=== PATIENT | male | born 1960 | race Caucasian/White ===

== ENCOUNTER 2021-11-19 01:17 | Emergency (ER) | payer OTHER, BC, SELFPAY ==
[2021-11-19 01:18] VITALS: BP 179/119; PULSE 98; RESP 16; TEMP 36.2; O2SAT 98; BMI 28.0
--- NOTE | 2021-11-19 01:35 | EDS_ITS ---
HPI History of Present Illness Chief Complaint: Laceration Informant: patient Occured/Mechanism Comment: Accidentally incised at work Onset/Context/Timing Onset: Today (JPTA) Timing: Continuous Quality of Pain: - (Sore) Location: Left middle finger Current Severity: Mild Maximum Severity: Moderate Worsened by: Palpation Relieved by: Leaving alone Associated Symptoms Associated Symptoms: Negative for Parasthesia, Weakness or Loss of Funtion Narrative Narrative: Patient was at work at [employer], he was working on his machine, he raised his hand up and accidentally caught the razor blade at the top with his left middle finger, causing an injury. Has been bleeding. Takes no blood thinners or any other medications. [id number]. No recent illness, alcohol, drug intoxication. Tetanus Immunization: 5-10 years (About 9 years) [facility] Medical History no medical history no medical history Home Medications No Known/Unobtainable [No Known Home Medications] 01/03/16 [History Last Taken Unknown] Allergy/AdvReac Type Severity Reaction Status Date / Time No Known Allergies Allergy Verified 01/03/16 17:17 Social History Smoking Status: Never smoker ROS ROS ED Constitutional Constitutional ED: Denies chills or fever(s) Musculoskeletal Musculoskeletal: Reports extremity pain; Denies neck pain Integumentary Reports wounds; Denies Abrasions or rash Neurologic Neurologic: Denies paresthesias or weakness EXAM Physical Exam Const Vital Signs: 11/19/21 01:18 Temperature 97.2 F L Temperature Source Temporal Pulse Rate 98 Respiratory Rate 16 Blood Pressure 179/119 H Blood Pressure Mean 139 Pulse Ox 98 Oxygen Delivery Method Room Air Positive well nourished and well developed General Appearance ED: well developed and NAD Neck full ROM and supple Back/Spine normal ROM and normal to inspection Extremity Extremity Narrative: Left middle finger: Distal aspect of the nailbed there is a partial skin avulsion, the nail above this has also been avulsed/removed. The rest of the nail is intact and normal. This is at the distal aspect of the nail toward the fingertip, the cuticle is unaffected. The wound is oozing nonpulsatile blood, there is no laceration to repair, there is no bone exposed, and he has full range of motion of the digit. No other wounds. Neuro oriented x3, no focal motor deficits and no sensory deficits noted Sensorium / Orientation: alert Psych mental status grossly normal and thought process normal Skin Skin Narrative: Wound to the nailbed of the left middle finger see above Rashes: no rashes MDM MDM MDM Narrative Medical decision making narrative: There is no repair indicated or necessary or able to be done for this. It is basically a skin avulsion, however it is involving the nailbed and the overlying portion of the nail. The overall affected area is small. The bleeding is more of an issue at this time, over the next couple days he will want to be pr eventing infection, and I will gradually granulate in and form new skin for the nailbed prior to the nail growing over it which may or may not be uncomplicated. Follow-up with [facility] advised, we updated his tetanus here, and after soaking in chlorhexidine, I had nursing place a bacitracin dressing along with a small piece of Surgifoam to help encourage accelerated hemostasis. Discharge Plan Triage Chief Complaint: Laceration ED Provider: Saran Carvajal Dx/Rx/DC Orders Clinical Impression: Injury of nail bed of finger of left hand, Immunization, tetanus-diphtheria Instructions: ED Skin Avulsion Prescriptions: No Action No Known Home Medications Stand Alone Forms: Work Status Form Primary Care Provider: NOT,DEFINED Referrals: [facility] [Group of Physicians] - As soon as possible NOT,DEFINED [Primary Care Provider] - Disposition Disposition: Home, Self Care
[2021-11-19] MEDS: Diphth,Pertuss(Acell),Tet Vac 0.5 ML Vial IM (01:47)
== END 2021-11-19 02:05 | disposition home or self-care (01) ==
PROVIDERS: Emergency Provider Emergency Medicine; Visit Provider Emergency Medicine
DX: S61.213A Laceration without foreign body of left middle finger without damage to nail, initial encounter (principal); Z23 Encounter for immunization; W26.0XXA Contact with knife, initial encounter
CPT/HCPCS: 90471; 90715; 99282

== ENCOUNTER → 2021-12-25 | Outpatient (CLI) | payer BC, SELFPAY ==
[2021-12-25 09:16] LABS: Bacteria 0 SEEN /hpf (None Seen); Mucous, Urine 0 SEEN /hpf (<or=2+); Red Blood Cells-Urine 0 SEEN /hpf (0-5); Squamous Epithelial Cells - UA 0 SEEN /hpf (0-5); White Blood Cells 0 SEEN /hpf (0-5)
[2021-12-25 10:35] LABS: Absolute Neutrophil Count 3.9 X10^3/uL (2.0-7.7); Basophil# 0.06 X10^3/uL; Basophil% 0.9 % (0-1); Eosinophil# 0.28 X10^3/uL; Eosinophils% 4.4 % (0-5); Hematocrit 45.5 % (40-54); Hemoglobin 14.6 g/dL (13.0-16.5); Lymphocyte % 25.3 % (19-41); Mean Corp Hgb Conc 32.1 g/dL (32-36); Mean Corpuscular Hgb 29.6 pg (27.0-32.0); Mean Corpuscular Volume 92.3 fL (80-94); Mean Platelet Vol. 9.6 fl (6.2-12.0); Monocyte# 0.45 X10^3/uL; Monocyte% 7.1 % (0-10); NRBC Flagged by Analyzer 0 % (0-5); Neutrophil # 3.91 X10^3/uL (2.7-7.7); Platelet Count 263 K/mm3 (150-450); RBC Distribution Width CV 13.2 % (11.6-14.6); RBC Distribution Width SD 45.3 fl (35.1-43.9); Red Blood Count 4.93 M/mm3 (4.6-6.2); White Blood Count 6.3 K/mm3 (4.4-11.0)
[2021-12-25 10:48] LABS: Color, Urine Yellow (Yellow); Glucose, Dipstick Normal (Normal); Ketone-Dipstick Negative (Negative); Leukocyte Esterase-Dipstick Negative /ul (Negative); Nitrite-Dipstick Negative (Negative); Occult Blood-Urine Negative /ul (Negative); Protein-Dipstick Negative (Negative); Specific Gravity, Urine 1.015 (1.002-1.030); Urine Bilirubin Dipstick Negative (Negative); Urine Clarity Sl. Cloudy (Clear); Urine Urobilinogen Normal (Normal)
[2021-12-25 11:13] LABS: ALB/GLOB Ratio 1.2 RATIO (0.9-2.4); AST(SGOT) 21 U/L (15-37); Alanine Aminotransfer ALT/SGPT 29 U/L (16-61); Albumin, Serum 3.9 g/dL (3.2-5.0); Alkaline Phosphatase 53 U/L (45-117); Anion Gap 7 (5-15); BUN 13 mg/dL (7-18); Calcium,Total 8.9 mg/dL (8.5-10.1); Chloride 107 mmol/L (98-107); Cholesterol 171 mg/dL (200); Creatinine, Serum 0.87 mg/dL (0.70-1.30); EST Glomerular Filtration Rate 95 mL/min (>60); Est Glom Filt Rate - Afr Amer 115 mL/min (>60); Globulin 3.3 g/dL (2.2-4.2); Glucose 100 mg/dL (74-106); High Density Lipoprotein 52 mg/dL; Magnesium 2.3 mg/dL (1.6-2.6); Potassium 3.9 mmol/L (3.5-5.1); Protein, Total 7.2 g/dL (6.4-8.2); Sodium Level 139 mmol/L (136-145); Thyroid Stim Hormone (TSH) 2.97 uIU/mL (0.358-3.74); Triglycerides 92 mg/dL; Very Low Density Lipoprotein 18 mg/dL (5-40)
[2021-12-26 11:50] LABS: Hemoglobin A1c 5.7 % (3.8-5.6)
== END | disposition home or self-care (01) ==
LOC: MFPLAB 09:15
PROVIDERS: PCP Family Medicine; Referring Provider Family Medicine; Visit Provider Family Medicine
DX: I10 Essential (primary) hypertension (principal); R73.09 Other abnormal glucose
CPT/HCPCS: 36415; 80053; 80061; 81001; 83036; 83735; 84443; 85025

== ENCOUNTER 2022-02-11 08:12 | Day surgery (SDC) | payer BC, SELFPAY ==
[2022-02-11] VITALS (10 sets, daily range): BP systolic 97–151; BP diastolic 66–89; PULSE 62–89; RESP 14–18; TEMP 36.1–37.1; O2SAT 92–97; BMI 28.1
[2022-02-11] MEDS: Lactated Ringers 1,000 ML 15 ML IV (08:34)
--- NOTE | 2022-02-11 08:48 | PCM.HP.BLA ---
History and Physical Date of Admission: 02/11/22 Visit Reasons:?Gastroesophageal reflux disease (GERD) Chief Complaint: gerd Is patient in pain?: No Allergies No Known Allergies Allergy (Verified 01/23/22 09:53) Medications acetaminophen 325 mg tablet (Tylenol) 325 mg PO ONCE PRN 01/23/22 [History Confirmed 01/23/22] amlodipine 10 mg tablet 10 mg PO DAILY 01/23/22 [History Confirmed 01/23/22] hydrochlorothiazide 25 mg tablet 25 mg PO DAILY 01/23/22 [History Confirmed 01/23/22] omeprazole 20 mg capsule,delayed release 20 mg PO DAILY 01/23/22 [History Confirmed 01/23/22] PFSH Social History? Smoking Status:? Never smoker HPI HPI HPI: 61-year-old gentleman is referred by Dr Omar Rodriges for surgical consultation regarding gastroesophageal reflux disease.? At that time patient was complaining of longstanding problems with heartburn epigastric and substernal burning and regurgitation and sour brash.? This is apparently been over 20 years.? He had an upper endoscopy in approximately 2005 because of a hot dog getting stuck.? More recently he has been on Pepcid once a day but continues to have dysphagia to solids and occasionally liquids.? Initially the patient was scheduled to have a barium swallow.? I do not see that that was accomplished.? He was placed on omeprazole 20 mg daily.? The patient states that since starting omeprazole his symptoms are markedly improved.? He still does have some mild breakthrough symptoms of reflux and heartburn. Claims that his sister perhaps 6 7 years ago had what sounds like a hiatal hernia repair and reflux surgery.? She apparently that was still on pantoprazole therapy.? The patient states that it may be possible that she had gastric acid overproduction. The patient works at [employer] and has done so for 20 years.? He does do some walking for exercise with his [place] [employer] dog.? He has not had any abdominal surgery.? No bright red blood per rectum or melena. He has had in the past some intentional weight loss.? Recently his weight appetite and feeling of wellness have been stable. ROS General General: No weight change, appetite, fatigue, colon cancer, breast cancer or weakness HEENT HEENT: No difficulty swallowing, eye injury, eye surgery, swollen glands or hoarseness Endo Endocrine: No thyroid disease, diabetes mellitus, thyroid cancer, Hair loss, heat intolerance or cold intolerance Additional Details: pre diabetic Skin Skin: No rash or changing moles Musc Musculoskeletal: Yes arthritis; No back problems, rheumatoid arthritis, gout or joint pain Cardio Cardiovascular: Yes high blood pressure; No murmur, pacemaker, heart disease, atrial fibrillation, heart attack, heart stent, palpitations, shortness of breat with exertion or chest pain Psych Psychiatric: No depression, anxiety or hearing voices Resp Respiratory: No shortness of breath, No sleep apnea, No cough, No COPD, No asthma, No emphysema and No wheezing Gastro Gastrointestinal: No abdominal pain, No nausea or vomiting, No diarrhea, No constipation, No blood in stool, Yes acid reflux, No hemorrhoids, No ulcers, No gallbladder problem and No black,tarry stools Uvaldo Hematologic: No blood thinners, No blood disorders, No bleeding, No anemia and No blood clots Neuro Neurologic: No system reviewed and no additional complaints, except as documented, No as per HPI, No abnormal gait, No abnormal hearing, No abnormal movements, No abnormal speech, No behavioral changes, No burning sensations, No confusion, No convulsions, No disequilibrium, No dizziness, No localized weakness, No frequent falls, No headache(s), No lack of coordination, No loss of vision, No memory loss, No numbness, No other visual disturbances, No radicular pain, No restless legs, No sensory deficit, No syncope, No tingling, No tremor(s), No weakness and No other Exam Const General: cooperative, healthy appearing, comfortable and no acute distress [facility] Head: normal to inspection Eyes General: appearance normal, both eyes and all related structures Neck Neck: normal visual inspection Chest Chest palpation & inspection: normal inspection of the chest Resp Effort & Inspection: normal respiratory effort Cardio Rate: regular rate Rhythm: regular rhythm GI Inspection: normal to inspection Musc Cervical Spine: normal cervical lordosis Skin General: no rashes or lesions noted Neuro General: patient alert, patient awake and patient oriented x3 Extrem General: no calf tenderness Psych Appearance: grossly normal Assessment and Plan Assessment and Plan (1) Gastroesophageal reflux disease: ?Plan: 61-year-old gentleman who for a long period of time was on famotidine therapy and is just had omeprazole therapy converted.? He has had a remote upper endoscopy 2005 for an esophageal foreign body.? Occasionally solid food sometimes cause him some difficulty but he has not had any overt obstructions.? I am recommending to him a esophagogastroduodenoscopy with possible biopsy or polypectomy as indicated.? Very careful inspection for hiatal hernia reflux changes and possible Watts's will be pursued.? Whether the patient would be a future candidate for surgical reflux surgery could be entertained in the future but at this point he is just initiated omeprazole/PPI therapy. He has had an opportunity to ask and have questions answered.? I very much appreciate the kind opportunity of assisting with his surgical care. Copy: Dr Omar Juarez M.D., F.A.C.S. I have examined the patient and the H&P has been reviewed. There are no clinical changes since date of exam. Zion Juarez M.D., F.A.C.S.
--- NOTE | 2022-02-11 09:15 | EGD_PTH ---
PATIENT: DANTE HIRSCH LOC: EN U#:[id number] AGE/SX: 61/M ROOM: RE02/11/[address]: Dr. Zion Juarez MD : 1960 BED: DIS: 02/11/2022 SPEC #: [id number] RECD: 02/11/22 10:45 STATUS: FELICITA PRITCHARD #: [id number] YAW: 02/11/22 09:[address]: Zion Juarez DEPT: SURGICAL PATHOLOGY RECD BY: Jesus Posada ENTERED: 02/11/22 11:34 SP TYPE: EGD BIOPSY [facility] DR: Dr. Omar Rodriges MD Tissues: A - Gastric mucous membrane B - Gastric mucous membrane Procedures: Surgery Specimen Level IV HEADER OPERATION: EGD ([facility]), biopsy, dilatation, hemostasis clip PRE-OP DIAGNOSIS: GERD TISSUE SUBMITTED: A ? Antrum biopsy for histo and H. pylori, B ? EG junction biopsy MICROSCOPIC DIAGNOSIS A. Gastric antrum, biopsy: Chronic gastritis. See comment. B. Gastroesophageal junction, biopsy: Fragments of squamous mucosa with no pathologic change. AM:shannan 02/12/2022 COMMENT A. The results of immunohistochemistry for Helicobacter pylori will be reported separately ([id number]). MICROSCOPIC DESCRIPTION Slides are reviewed. GROSS DESCRIPTION A - Received in fixative is one container labeled with the patient's name and designated antrum biopsy. The specimen consists of one irregular fragment of light elies soft tissue that measures 0.3 x 0.3 x .1 cm. The specimen is totally submitted in one cassette. B - Received in fixative is one container labeled with the patient's name and designated EG junction biopsy. The specimen consists of one irregular fragment of light elise soft tissue that measures 0.4 x 0.3 x 0.1 cm. The specimen is totally submitted in one cassette. / SJ:shannan 02/11/2022 TC:3 CPT: 54630 x2
--- NOTE | 2022-02-11 09:15 | IMM_PTH ---
PATIENT: DANTE HIRSCH LOC: EN U#:[id number] AGE/SX: 61/M ROOM: RE02/11/[address]: Dr. Zion Juarez MD : 1960 BED: DIS: 02/11/2022 SPEC #: [id number] RECD: 02/11/22 13:20 STATUS: FELICITA REKacey #: [id number] YAW: 02/11/22 09:[address]: Zion Juarez DEPT: IMMUNOHISTOCHEMISTRY RECD BY: Andie Enamorado ENTERED: 02/11/22 13:20 SP TYPE: IMMUNO OTHR DR: Dr. Omar Rodriges MD Tissues: A - Stomach, NOS Procedures: H Pylori (initial) PHYSICIAN & INSTITUTION [place] [id number] SPECIMEN INFORMATION: Tissue Source: A ? Antrum biopsy Clinical Info: GERD Specimen Number: [id number] CPT code: 51842 METHODOLOGY: Deparaffinized sections of prefer/formalin-fixed tissue or PAP/DQ stained slides are incubated with monoclonal/polyclonal antibodies/oligonucleotide probes. Localization is made via biotin free immunoperoxidase method. Appropriate controls are performed and reacted as expected. Results on target cell population are indicated in the following table: RESULTS: ANTIBODY / CLONE RESULT Block A H Pylori (polyclonal) negative These tests were developed and their performance characteristics determined by [facility]. They may not have been cleared or approved by the U.S. Food and Drug Administration. The FDA has determined that such clearance or approval is not necessary. The above immunohistochemical/dualISH markers are ordered and reviewed by the Pathologist. INTERPRETATION: A. Antrum, biopsy: Negative for Helicobacter pylori organisms. AM:shannan 02/12/2022
--- NOTE | 2022-02-11 09:59 | OP.EGD_ITS ---
Patient Name: Nima Viera Procedure Date: 02/11/2022 9:23 AM Date of : 1960 Age: 61 Procedure: Upper GI endoscopy Indications: Suspected esophageal reflux Providers: Zion Juarez MD Medicines: See the Anesthesia note for documentation of the administered medications Complications: No immediate complications. Procedure: Pre-Anesthesia Assessment: - Prior to the procedure, a History and Physical was performed, and patient medications and allergies were reviewed. The patient's tolerance of previous anesthesia was also reviewed. The risks and benefits of the procedure and the sedation options and risks were discussed with the patient. All questions were answered, and informed consent was obtained. Prior Anticoagulants: The patient has taken no previous anticoagulant or antiplatelet agents. ASA Grade Assessment: II - A patient with mild systemic disease. After reviewing the risks and benefits, the patient was deemed in satisfactory condition to undergo the procedure. After obtaining informed consent, the endoscope was passed under direct vision. Throughout the procedure, the patient's blood pressure, pulse, and oxygen saturations were monitored continuously. The gastroscope was introduced through the mouth, and advanced to the second part of duodenum. The upper GI endoscopy was somewhat difficult due to stricture. Successful completion of the procedure was aided by performing the maneuvers documented (below) in this report. The patient tolerated the procedure well. Scope In: 9:33:35 AM Scope Out: 9:48:13 AM Total Procedure Duration Time 0 hours 14 minutes 38 seconds Findings: One benign-appearing, intrinsic stenosis was found 40 cm from the incisors. This stenosis was moderately severe and measured 2 mm (inner diameter). The stenosis was traversed after dilation. A TTS dilator was passed through the scope. Dilation with an 18-19-20 mm balloon dilator was performed to 20 mm. The dilation site was examined following endoscope reinsertion and showed moderate improvement in luminal narrowing. Biopsies were taken with a cold forceps for histology. For hemostasis, one hemostatic clip was successfully placed at the gastroesophageal junction. There was no bleeding at the end of the procedure. Diffuse mildly erythematous mucosa without bleeding was found in the gastric antrum. Biopsies were taken with a cold forceps for histology. The examined duodenum was normal. Impression: - Benign-appearing esophageal stenosis. Dilated. Biopsied. - Erythematous mucosa in the antrum. Biopsied. - Normal examined duodenum. - One hemostatic clip was successfully placed at the gastroesophageal junction.This reapproximated mucosa Recommendation: - Discharge patient to home. - Clear liquid diet today. - Continue present medications. - Return to my office in 3 days. Will hold at clears and prescribe on dose of Rocephin IV Procedure Code(s): --- Professional --- 29527, Esophagogastroduodenoscopy, flexible, transoral; with transendoscopic balloon dilation of esophagus (less than 30 mm diameter) 07896, 59, Esophagogastroduodenoscopy, flexible, transoral; with biopsy, single or multiple Diagnosis Code(s): --- Professional --- K22.2, Esophageal obstruction K31.89, Other diseases of stomach and duodenum CPT copyright 2017 [employer]. All rights reserved. The codes documented in this report are preliminary and upon creative technologist review may be revised to meet current compliance requirements. Zion Juarez MD 02/11/2022 9:59:11 AM This report has been signed electronically. Number of Addenda: 0 Note Initiated On: 02/11/2022 9:23 AM
--- NOTE | 2022-02-11 10:00 | OP.CCLET_ITS ---
02/11/2022 Omar Rodriges [address] [place] [address] Re : Upper GI endoscopy procedure for Nima Viera Dear Dr. Rodriges This procedure was performed on Friday, February 11, 2022. My impressions and recommendations are as follows: Impressions : - Benign-appearing esophageal stenosis. Dilated. Biopsied. - Erythematous mucosa in the antrum. Biopsied. - Normal examined duodenum. - One hemostatic clip was successfully placed at the gastroesophageal junction.This reapproximated mucosa Recommendations : - Discharge patient to home. - Clear liquid diet today. - Continue present medications. - Return to my office in 3 days. Will hold at clears and prescribe on dose of Rocephin IV My findings are described in the full procedure note, which is enclosed. If I can be of further assistance, please feel free to contact me at Doctor phone number(s): Work: . Sincerely, Zion Juarez MD 02/11/2022 9:59:11 AM This report has been signed electronically.
--- NOTE | 2022-02-11 10:04 | SUR.PHASEI ---
Dr. Juarez at bedside however pt is still waking up from sedation. Instructed to keep npo until he speaks to pt.
[2022-02-11] MEDS: 0.9% Normal Saline 250 ML IV.SOLN. IV (10:16)
[2022-02-11] MEDS: Ceftriaxone 1 GM/50 ML BAG IV (10:16)
== END 2022-02-11 11:20 | disposition home or self-care (01) ==
LOC: EN 08:15 → AC 08:15
PROVIDERS: PCP Family Medicine; Referring Provider Family Medicine; Visit Provider Surgery
PROC: 0DJ08ZZ Inspection of Upper Intestinal Tract, Via Natural or Artificial Opening Endoscopic (ICD-10-PCS; CPT 43235; principal; 2022-02-11 09:10)
DX: K29.50 Unspecified chronic gastritis without bleeding (principal); K22.2 Esophageal obstruction; K31.89 Other diseases of stomach and duodenum; K21.9 Gastro-esophageal reflux disease without esophagitis; I10 Essential (primary) hypertension; Z79.899 Other long term (current) drug therapy
CPT/HCPCS: 43239; 43249; 88305; 88342; J7050; J7120; J2405

== ENCOUNTER 2022-04-11 08:55 | Day surgery (SDC) | payer BC, SELFPAY ==
[2022-04-11 09:15] VITALS: BP 127/82; PULSE 80; RESP 16; TEMP 36.6; O2SAT 99
== END 2022-04-11 09:43 | disposition home or self-care (01) ==
PROVIDERS: PCP Family Medicine; Referring Provider Surgery; Visit Provider Surgery
PROC: F00ZJWZ Instrumental Swallowing and Oral Function Assessment using Swallowing Equipment (ICD-10-PCS; CPT 43235; principal; 2022-04-11 08:55)
DX: R13.10 Dysphagia, unspecified (principal)
CPT/HCPCS: 91010

== ENCOUNTER → 2022-04-25 | Outpatient (CLI) | payer BC, SELFPAY ==
[2022-04-25 12:20] LABS: Absolute Lymphocyte Count 1.83 X10^3/uL (0.83-4.51); Absolute Neutrophil Count 3.2 X10^3/uL (2.0-7.7); Basophil# 0.05 X10^3/uL; Basophil% 0.9 % (0-1); Eosinophil# 0.26 X10^3/uL; Eosinophils% 4.5 % (0-5); Hematocrit 42.5 % (40-54); Hemoglobin 13.6 g/dL (13.0-16.5); Lymphocyte # 1.83 X10^3/ul (0.83-4.51); Lymphocyte % 31.4 % (19-41); Mean Corpuscular Hgb 29.2 pg (27.0-32.0); Mean Corpuscular Volume 91.2 fL (80-94); Mean Platelet Vol. 9.5 fl (6.2-12.0); Monocyte# 0.52 X10^3/uL; Monocyte% 8.9 % (0-10); NRBC Flagged by Analyzer 0 % (0-5); Neutrophil # 3.15 X10^3/uL (2.7-7.7); Platelet Count 275 K/mm3 (150-450); RBC Distribution Width CV 13.3 % (11.6-14.6); RBC Distribution Width SD 44.7 fl (35.1-43.9); Red Blood Count 4.66 M/mm3 (4.6-6.2); White Blood Count 5.8 K/mm3 (4.4-11.0)
[2022-04-25 12:47] LABS: ALB/GLOB Ratio 1.1 RATIO (0.9-2.4); AST(SGOT) 26 U/L (15-37); Alanine Aminotransfer ALT/SGPT 25 U/L (16-61); Albumin, Serum 3.9 g/dL (3.2-5.0); Alkaline Phosphatase 54 U/L (45-117); Anion Gap 8 (5-15); BUN 17 mg/dL (7-18); Calcium,Total 9.3 mg/dL (8.5-10.1); Chloride 104 mmol/L (98-107); EST Glomerular Filtration Rate 80 mL/min (>60); Est Glom Filt Rate - Afr Amer 97 mL/min (>60); Globulin 3.4 g/dL (2.2-4.2); Glucose 112 mg/dL (74-106); Protein, Total 7.3 g/dL (6.4-8.2); Sodium Level 138 mmol/L (136-145)
[2022-04-25 13:44] LABS: Hemoglobin A1c 5.6 % (3.8-5.6)
== END | disposition home or self-care (01) ==
LOC: MFPLAB 10:49
PROVIDERS: PCP Family Medicine; Referring Provider Family Medicine; Visit Provider Family Medicine
DX: I10 Essential (primary) hypertension (principal); R73.02 Impaired glucose tolerance (oral)
CPT/HCPCS: 36415; 80053; 83036; 85025

== ENCOUNTER → 2022-07-29 | Outpatient (CLI) | payer BC, SELFPAY ==
[2022-07-29 15:42] LABS: Absolute Lymphocyte Count 1.71 X10^3/uL (0.83-4.51); Absolute Neutrophil Count 3.9 X10^3/uL (2.0-7.7); Basophil# 0.06 X10^3/uL; Basophil% 0.9 % (0-1); Eosinophil# 0.27 X10^3/uL; Eosinophils% 4.2 % (0-5); Hematocrit 46.4 % (40-54); Hemoglobin 14.6 g/dL (13.0-16.5); Lymphocyte # 1.71 X10^3/ul (0.83-4.51); Lymphocyte % 26.5 % (19-41); Mean Corp Hgb Conc 31.5 g/dL (32-36); Mean Corpuscular Hgb 28.9 pg (27.0-32.0); Mean Corpuscular Volume 91.9 fL (80-94); Mean Platelet Vol. 9.8 fl (6.2-12.0); Monocyte# 0.49 X10^3/uL; Monocyte% 7.6 % (0-10); NRBC Flagged by Analyzer 0 % (0-5); Neutrophil % 60.5 % (47-70); Platelet Count 286 K/mm3 (150-450); RBC Distribution Width CV 13.3 % (11.6-14.6); RBC Distribution Width SD 45.1 fl (35.1-43.9); Red Blood Count 5.05 M/mm3 (4.6-6.2); White Blood Count 6.5 K/mm3 (4.4-11.0)
[2022-07-29 16:08] LABS: ALB/GLOB Ratio 1.1 RATIO (0.9-2.4); AST(SGOT) 23 U/L (15-37); Alanine Aminotransfer ALT/SGPT 30 U/L (16-61); Albumin, Serum 3.9 g/dL (3.2-5.0); Alkaline Phosphatase 57 U/L (45-117); Anion Gap 6 (5-15); BUN 15 mg/dL (7-18); BUN/Creat Ratio 15.6 RATIO (10-20); Calcium,Total 9.1 mg/dL (8.5-10.1); Chloride 107 mmol/L (98-107); Creatinine, Serum 0.96 mg/dL (0.70-1.30); EST Glomerular Filtration Rate 84 mL/min (>60); Est Glom Filt Rate - Afr Amer 101 mL/min (>60); Globulin 3.4 g/dL (2.2-4.2); Glucose 122 mg/dL (74-106); PSA,Total - Annual Screen 3.76 ng/mL (0.00-4.00); Protein, Total 7.3 g/dL (6.4-8.2); Sodium Level 138 mmol/L (136-145)
[2022-07-29 16:16] LABS: Hemoglobin A1c 5.9 % (3.8-5.6)
== END | disposition home or self-care (01) ==
LOC: MFPLAB 11:49
PROVIDERS: PCP Family Medicine; Visit Provider Family Medicine
DX: I10 Essential (primary) hypertension (principal); R73.02 Impaired glucose tolerance (oral); Z12.5 Encounter for screening for malignant neoplasm of prostate
CPT/HCPCS: 36415; 80053; 83036; 84153; 85025; G0103

== ENCOUNTER 2022-08-26 06:02 | Day surgery (SDC) | payer BC, SELFPAY ==
--- NOTE | 2022-08-26 06:17 | PCM.HP.STD ---
[facility] General General Date of Service: 08/26/22 Chief Complaint: Screening for intestinal cancer [facility] Narrative DANTE HIRSCH, is a 61 M who presents for screening colonoscopy today. He presents via open access. He has not had a previous one. He has an uncle who had colon cancer. The patient denies any abdominal pain or bright red blood per rectum or melena. He has had previous upper endoscopy demonstrating reflux esophagitis but currently upon medication he is doing better. He is elected not to pursue further surgical investigation and/or treatment of his reflux disease at this time. [facility] Medical History (Updated 08/25/22 @ 10:53 by Niru Mcneil) Alcohol use Arthritis Back pain Easy bruising Gastric reflux History of edema History of hiatal hernia History of pain when walking Hypertension Leg cramps Loss of hearing Non-smoker Wears glasses Home Medications acetaminophen 325 mg tablet (Tylenol) 325 mg PO ONCE PRN Pain 01/23/22 [History Last Taken Unknown] amlodipine 10 mg tablet 10 mg PO DAILY 01/23/22 [History Last Taken Unknown] hydrochlorothiazide 25 mg tablet 25 mg PO DAILY 01/23/22 [History Last Taken Unknown] multivitamin 1 cap PO DAILY 02/06/22 [History Last Taken Unknown] omeprazole 20 mg capsule,delayed release 20 mg PO DAILY 08/25/22 [History Last Taken Unknown] Allergy/AdvReac Type Severity Reaction Status Date / Time No Known Allergies Allergy Verified 08/26/22 06:25 Family History (Updated 07/31/22 @ 11:49 by Paula Barth) Daughter Ulcerative colitis Uncle Colon cancer Surgical History (Updated 08/25/22 @ 10:44 by Niru Mcneil) History of carpal tunnel surgery of right wrist History of esophagogastroduodenoscopy (EGD) History of wisdom tooth extraction Hx of toe surgery Social History (Updated 07/31/22 @ 11:50 by Paula Barth) Smoking Status: Never smoker additional social history: ROS Constitutional Constitutional: Reports systems reviewed and no addt'l complaints, except as documented Cardiovascular Cardiovascular: Denies chest pain Respiratory/Chest Respiratory/Chest: Denies shortness of breath at rest Gastrointestinal Gastrointestinal: Denies abdominal pain, change in bowel habits, hematochezia or melena Physical Exam Const alert, oriented x3 and no apparent distress General Appearance: cooperative and comfortable Eyes General Eye: normal appearance of both eyes Neck General: normal visual inspection Chest inspection of chest normal Resp Effort and Inspection: able to speak in complete sentences and symmetric chest movement Auscultation: clear to auscultation bilaterally Cardio regular rate and regular rhythm GI soft to palpation, non-tender and non-distended Extremity no calf tenderness Neuro oriented x3 Psych thought process normal Assessment & Plan Assessment/Plan (1) Encounter for screening for malignant neoplasm of colon: PLAN: I recommended the patient a screening colonoscopy with possible biopsy or polypectomy as indicated. He is aware of the technique, benefit, risk, alternatives. He has had an opportunity ask and have questions answered. We will proceed as noted. He presents via open access today. Zion Juarez M.D., F.A.C.S.
[2022-08-26 06:39] VITALS: BP 132/86; PULSE 74; RESP 17; TEMP 36.6; O2SAT 97; BMI 26.9
[2022-08-26] MEDS: Lactated Ringers 1,000 ML 15 ML IV (06:39)
--- NOTE | 2022-08-26 07:00 | COLBX_PTH ---
PATIENT: DANTE HIRSCH LOC: EN U#:[id number] AGE/SX: 61/M ROOM: RE08/26/[address]: Dr. Zion Juarez MD : 1960 BED: DIS: 08/26/2022 SPEC #: [id number] RECD: 08/26/22 14:27 STATUS: FELICITA MACHO #: [id number] YAW: 08/26/22 07:[address]: Zion Juarez DEPT: SURGICAL PATHOLOGY RECD BY: Kristine Adamson ENTERED: 08/27/22 10:24 SP TYPE: COLON BX OTHR DR: Dr. Omar Rodriges MD Tissues: Descending colon Procedures: Surgery Specimen Level IV HEADER OPERATION: Colonoscopy PRE-OP DIAGNOSIS: Encounter for screening for malignant neoplasm of colon TISSUE SUBMITTED: Descending colon MICROSCOPIC DIAGNOSIS Descending colon, biopsy: Tubular adenoma. SJ: 08/28/2022 MICROSCOPIC DESCRIPTION Slides are reviewed. GROSS DESCRIPTION Received is one container labeled with the patient name and designated descending colon. The specimen consists of multiple irregular fragments of light elise soft tissue that in aggregate measure 1 x 0.3 x 0.1 cm. The specimen is totally submitted in one cassette. / SJ:arielle 08/27/22 TC:1 CPT:91597
--- NOTE | 2022-08-26 07:41 | OP.COLON_ITS ---
Patient Name: Nima Viera Procedure Date: 08/26/2022 7:16 AM Date of : 1960 Age: 61 Procedure: Colonoscopy Indications: Screening for colorectal malignant neoplasm Providers: Zion Juarez MD Referring MD: Zion Juarez MD Medicines: See the Anesthesia note for documentation of the administered medications Patient Profile: Last Colonoscopy: none. The patient's first colonoscopy is today. Complications: No immediate complications. Procedure: Pre-Anesthesia Assessment: - Prior to the procedure, a History and Physical was performed, and patient medications and allergies were reviewed. The patient's tolerance of previous anesthesia was also reviewed. The risks and benefits of the procedure and the sedation options and risks were discussed with the patient. All questions were answered, and informed consent was obtained. Prior Anticoagulants: The patient has taken no previous anticoagulant or antiplatelet agents. ASA Grade Assessment: II - A patient with mild systemic disease. After reviewing the risks and benefits, the patient was deemed in satisfactory condition to undergo the procedure. After I obtained informed consent, the scope was passed under direct vision. Throughout the procedure, the patient's blood pressure, pulse, and oxygen saturations were monitored continuously. The pediatric colonoscope was introduced through the anus and advanced to the cecum, identified by appendiceal orifice and ileocecal valve. The colonoscopy was performed without difficulty. The patient tolerated the procedure well. The quality of the bowel preparation was good. The ileocecal valve and the appendiceal orifice were photographed. Scope In: 7:23:50 AM Scope Withdrawal Time 0 hours 8 minutes 29 seconds Scope Out: 7:37:28 AM Total Procedure Duration Time 0 hours 13 minutes 38 seconds Findings: The digital rectal exam findings include non-thrombosed external hemorrhoids, non-thrombosed internal hemorrhoids and internal hemorrhoids that prolapse with straining, but spontaneously regress to the resting position (Grade II). Pertinent negatives include normal prostate (size, shape, and consistency). A 4 mm polyp was found in the mid descending colon. The polyp was sessile. The polyp was removed with a cold biopsy forceps. Resection and retrieval were complete. Impression: - Non-thrombosed external hemorrhoids, non-thrombosed internal hemorrhoids and internal hemorrhoids that prolapse with straining, but spontaneously regress to the resting position (Grade II) found on digital rectal exam. - One 4 mm polyp in the mid descending colon, removed with a cold biopsy forceps. Resected and retrieved. Recommendation: - Repeat colonoscopy in 5 years for surveillance based on pathology results. - Telephone my office for pathology results in 1 week. - Continue present medications. Procedure Code(s): --- Professional --- 09672, Colonoscopy, flexible; with biopsy, single or multiple Diagnosis Code(s): --- Professional --- Z12.11, Encounter for screening for malignant neoplasm of colon K64.1, Second degree hemorrhoids K64.4, Residual hemorrhoidal skin tags D12.4, Benign neoplasm of descending colon CPT copyright 2017 [employer]. All rights reserved. The codes documented in this report are preliminary and upon motor inspection mechanic review may be revised to meet current compliance requirements. Zion Juarez MD 08/26/2022 7:41:34 AM This report has been signed electronically. Number of Addenda: 0 Note Initiated On: 08/26/2022 7:16 AM
--- NOTE | 2022-08-26 07:42 | OP.CCLET_ITS ---
08/27/2022 Omar Rodriges [address] [place] [address] Re : Colonoscopy procedure for Nima Viera Dear Dr. Rodriges This procedure was performed on Friday, August 26, 2022. My impressions and recommendations are as follows: Impressions : - Non-thrombosed external hemorrhoids, non-thrombosed internal hemorrhoids and internal hemorrhoids that prolapse with straining, but spontaneously regress to the resting position (Grade II) found on digital rectal exam. - One 4 mm polyp in the mid descending colon, removed with a cold biopsy forceps. Resected and retrieved. Recommendations : - Repeat colonoscopy in 5 years for surveillance based on pathology results. - Telephone my office for pathology results in 1 week. - Continue present medications. My findings are described in the full procedure note, which is enclosed. If I can be of further assistance, please feel free to contact me at Doctor phone number(s): Work: . Sincerely, Zion Juarez MD 08/26/2022 7:41:34 AM This report has been signed electronically.
[2022-08-26 07:48] VITALS: BP 121/79; BP 132/86; PULSE 63; RESP 12; TEMP 35.9; O2SAT 95
[2022-08-26 07:50] VITALS: BP 118/78; BP 132/86; PULSE 61; RESP 12; O2SAT 95
[2022-08-26 07:55] VITALS: BP 122/80; BP 132/86; PULSE 65; RESP 18; O2SAT 97
[2022-08-26 08:00] VITALS: BP 122/88; BP 132/86; PULSE 59; RESP 18; TEMP 36.8; O2SAT 100
[2022-08-26 08:17] VITALS: BP 132/86
== END 2022-08-26 08:58 | disposition home or self-care (01) ==
LOC: EN 06:09 → AC 06:10
PROVIDERS: PCP Family Medicine; Referring Provider Family Medicine; Visit Provider Surgery
PROC: 0DJD8ZZ Inspection of Lower Intestinal Tract, Via Natural or Artificial Opening Endoscopic (ICD-10-PCS; CPT 45378; principal; 2022-08-26 06:55)
DX: Z12.11 Encounter for screening for malignant neoplasm of colon (principal); D12.4 Benign neoplasm of descending colon; K64.1 Second degree hemorrhoids; K64.4 Residual hemorrhoidal skin tags; I10 Essential (primary) hypertension; K21.9 Gastro-esophageal reflux disease without esophagitis; Z79.899 Other long term (current) drug therapy; Z80.0 Family history of malignant neoplasm of digestive organs
CPT/HCPCS: 45380; 88305; J7120

== ENCOUNTER → 2023-01-23 | Outpatient (CLI) | payer BC, SELFPAY ==
[2023-01-23 12:43] LABS: Absolute Lymphocyte Count 2.07 X10^3/uL (0.83-4.51); Absolute Neutrophil Count 3.2 X10^3/uL (2.0-7.7); Basophil# 0.04 X10^3/uL; Basophil% 0.7 % (0-1); Eosinophil# 0.24 X10^3/uL; Hematocrit 44.3 % (40-54); Hemoglobin 14.2 g/dL (13.0-16.5); Lymphocyte # 2.07 X10^3/ul (0.83-4.51); Lymphocyte % 34.7 % (19-41); Mean Corp Hgb Conc 32.1 g/dL (32-36); Mean Corpuscular Hgb 28.7 pg (27.0-32.0); Mean Corpuscular Volume 89.5 fL (80-94); Mean Platelet Vol. 9.7 fl (6.2-12.0); Monocyte# 0.46 X10^3/uL; Monocyte% 7.7 % (0-10); NRBC Flagged by Analyzer 0 % (0-5); Neutrophil # 3.15 X10^3/uL (2.7-7.7); Neutrophil % 52.7 % (47-70); Platelet Count 290 K/mm3 (150-450); RBC Distribution Width CV 13.5 % (11.6-14.6); RBC Distribution Width SD 44.2 fl (35.1-43.9); Red Blood Count 4.95 M/mm3 (4.6-6.2)
[2023-01-23 13:06] LABS: Microalbumin,Random Urine < 5.0 mg/L (NO RANGE EST.)
[2023-01-23 13:18] LABS: ALB/GLOB Ratio 1.2 RATIO (0.9-2.4); AST(SGOT) 21 U/L (15-37); Alanine Aminotransfer ALT/SGPT 25 U/L (16-61); Albumin, Serum 3.9 g/dL (3.2-5.0); Alkaline Phosphatase 53 U/L (45-117); Anion Gap 4 (5-15); BUN 15 mg/dL (7-18); BUN/Creat Ratio 15.7 RATIO (10-20); Calcium,Total 8.8 mg/dL (8.5-10.1); Chloride 104 mmol/L (98-107); Cholesterol 150 mg/dL (200); Creatinine, Serum 0.95 mg/dL (0.70-1.30); EST Glomerular Filtration Rate 85 mL/min (>60); Est Glom Filt Rate - Afr Amer 102 mL/min (>60); Globulin 3.3 g/dL (2.2-4.2); Glucose 98 mg/dL (74-106); High Density Lipoprotein 53 mg/dL; Potassium 3.8 mmol/L (3.5-5.1); Protein, Total 7.2 g/dL (6.4-8.2); Sodium Level 137 mmol/L (136-145); Triglycerides 84 mg/dL; Very Low Density Lipoprotein 17 mg/dL (5-40)
[2023-01-24 08:59] LABS: Hemoglobin A1c 5.6 % (3.8-5.6)
== END | disposition home or self-care (01) ==
LOC: MFPLAB 10:46
PROVIDERS: PCP Family Medicine; Visit Provider Family Medicine
DX: R73.02 Impaired glucose tolerance (oral) (principal); I10 Essential (primary) hypertension
CPT/HCPCS: 36415; 80053; 80061; 82043; 82570; 83036; 85025

== ENCOUNTER → 2023-08-26 | Outpatient (CLI) | payer BC, SELFPAY ==
[2023-08-26 16:19] LABS: ALB/GLOB Ratio 1.1 RATIO (0.9-2.4); AST(SGOT) 19 U/L (15-37); Alanine Aminotransfer ALT/SGPT 28 U/L (16-61); Alkaline Phosphatase 59 U/L (45-117); Anion Gap 7 (5-15); BUN 17 mg/dL (7-18); BUN/Creat Ratio 16.3 RATIO (10-20); Calcium,Total 9.6 mg/dL (8.5-10.1); Chloride 104 mmol/L (98-107); Cholesterol 191 mg/dL (200); Creatinine, Serum 1.04 mg/dL (0.70-1.30); EST Glomerular Filtration Rate 77 mL/min (>60); Est Glom Filt Rate - Afr Amer 93 mL/min (>60); Globulin 3.6 g/dL (2.2-4.2); Glucose 103 mg/dL (74-106); High Density Lipoprotein 53 mg/dL; Magnesium 2.3 mg/dL (1.6-2.6); PSA,Total - Annual Screen 5.31 ng/mL (0.00-4.00); Protein, Total 7.6 g/dL (6.4-8.2); Sodium Level 136 mmol/L (136-145); Thyroid Stim Hormone (TSH) 2.83 uIU/mL (0.358-3.74); Triglycerides 127 mg/dL; Very Low Density Lipoprotein 25 mg/dL (5-40)
[2023-08-26 17:11] LABS: Hemoglobin A1c 5.6 % (3.8-5.6)
== END | disposition home or self-care (01) ==
LOC: MFPLAB 11:50
PROVIDERS: PCP Family Medicine; Visit Provider Family Medicine
DX: Z12.5 Encounter for screening for malignant neoplasm of prostate (principal); I10 Essential (primary) hypertension; R73.02 Impaired glucose tolerance (oral)
CPT/HCPCS: 36415; 80053; 80061; 83036; 83735; 84153; 84443; G0103

== ENCOUNTER → 2023-10-05 | Outpatient (CLI) | payer BC, SELFPAY ==
[2023-10-05 10:08] LABS: PSA,Total- Diagnostic 3.41 ng/mL (0.0-4.0)
[2023-10-06 12:09] LABS: PSA, Free 0.52 ng/mL; PSA, Free % 17.3 % (.)
== END | disposition home or self-care (01) ==
LOC: LAB 08:53
PROVIDERS: PCP Family Medicine; Referring Provider Nurse Practitioner; Visit Provider Nurse Practitioner
DX: R97.20 Elevated prostate specific antigen [PSA] (principal)
CPT/HCPCS: 36415; 84153; 84154

== ENCOUNTER → 2024-02-23 | Outpatient (CLI) | payer BC, SELFPAY ==
[2024-02-23 09:29] LABS: Bacteria 0 SEEN /hpf (None Seen); Mucous, Urine 0 SEEN /hpf (<or=2+); Red Blood Cells-Urine 0 SEEN /hpf (0-5); Squamous Epithelial Cells - UA 0 SEEN /hpf (0-5); White Blood Cells 0 SEEN /hpf (0-5)
[2024-02-23 10:21] LABS: Absolute Lymphocyte Count 1.71 X10^3/uL (0.83-4.51); Absolute Neutrophil Count 3.5 X10^3/uL (2.0-7.7); Basophil# 0.07 X10^3/uL; Basophil% 1.2 % (0-1); Eosinophil# 0.33 X10^3/uL; Eosinophils% 5.4 % (0-5); Lymphocyte # 1.71 X10^3/ul (0.83-4.51); Lymphocyte % 28.2 % (19-41); Mean Corp Hgb Conc 31.9 g/dL (32-36); Mean Corpuscular Volume 87.9 fL (80-94); Mean Platelet Vol. 9.4 fl (6.2-12.0); Monocyte# 0.44 X10^3/uL; Monocyte% 7.3 % (0-10); NRBC Flagged by Analyzer 0 % (0-5); Neutrophil % 57.7 % (47-70); Platelet Count 296 K/mm3 (150-450); RBC Distribution Width CV 13.7 % (11.6-14.6); RBC Distribution Width SD 43.8 fl (35.1-43.9); Red Blood Count 5.35 M/mm3 (4.6-6.2); White Blood Count 6.1 K/mm3 (4.4-11.0)
[2024-02-23 10:44] LABS: Hemoglobin A1c 5.8 % (3.8-5.6)
[2024-02-23 12:03] LABS: Color, Urine Yellow (Yellow); Glucose, Dipstick Normal (Normal); Ketone-Dipstick Negative (Negative); Leukocyte Esterase-Dipstick Negative /ul (Negative); Nitrite-Dipstick Negative (Negative); Occult Blood-Urine Negative /ul (Negative); Protein-Dipstick Negative (Negative); Specific Gravity, Urine 1.005 (1.002-1.030); Urine Bilirubin Dipstick Negative (Negative); Urine Clarity Clear (Clear); Urine Urobilinogen Normal (Normal)
[2024-02-23 12:35] LABS: AST(SGOT) 22 U/L (15-37); Alanine Aminotransfer ALT/SGPT 33 U/L (16-61); Albumin, Serum 3.8 g/dL (3.2-5.0); Alkaline Phosphatase 58 U/L (45-117); Anion Gap 5 (5-15); BUN 17 mg/dL (7-18); Calcium,Total 9.2 mg/dL (8.5-10.1); Chloride 104 mmol/L (98-107); Cholesterol 178 mg/dL (200); Creatinine, Serum 1.06 mg/dL (0.70-1.30); EST Glomerular Filtration Rate 75 mL/min (>60); Est Glom Filt Rate - Afr Amer 90 mL/min (>60); Globulin 3.7 g/dL (2.2-4.2); Glucose 102 mg/dL (74-106); High Density Lipoprotein 51 mg/dL; Magnesium 2.2 mg/dL (1.6-2.6); Potassium 3.8 mmol/L (3.5-5.1); Protein, Total 7.5 g/dL (6.4-8.2); Sodium Level 136 mmol/L (136-145); Triglycerides 117 mg/dL; Very Low Density Lipoprotein 23 mg/dL (5-40)
== END | disposition home or self-care (01) ==
LOC: MFPLAB 09:26
PROVIDERS: PCP Family Medicine; Referring Provider Family Medicine; Visit Provider Family Medicine
DX: R73.02 Impaired glucose tolerance (oral) (principal); I10 Essential (primary) hypertension
CPT/HCPCS: 36415; 80053; 80061; 81001; 83036; 83735; 85025

== ENCOUNTER 2024-06-18 16:26 | Emergency (ER) | payer BC, SELFPAY ==
[2024-06-18] VITALS (9 sets, daily range): BP systolic 136–150; BP diastolic 80–91; PULSE 64–72; RESP 11–19; TEMP 36.9–37.2; O2SAT 96–99; BMI 29.7
--- NOTE | 2024-06-18 16:44 | EKG12_ITS ---
Test Reason : CP Blood Pressure : */* mmHG Vent. Rate : 67 BPM Atrial Rate : 67 BPM P-R Int : 156 ms QRS Dur : 96 ms QT Int : 386 ms P-R-T Axes : 32 -4 26 degrees QTcB Int : 407 ms Normal sinus rhythm Normal ECG Confirmed by Porter Galindo ([id number]), senior editor YULIANA JEFFREY ([id number]) on 06/24/2024 12:58:27 PM Referred By: Confirmed By: Porter Galindo
--- NOTE | 2024-06-18 16:44 | ED.VIS.CHEST ---
HPI History of Present Illness Chief Complaint: Chest Pain Informant: patient Narrative Narrative: 63-year-old male presenting to the emergency room for evaluation of chest pain. Patient notes a history of hypertension. And prediabetes. He notes his cholesterols always been no prior stress test or heart catheterizations. Patient notes that for the past week he has had a pulled muscle like sensation in the left arm intermittently. States that he has been able to go to work due to his job and occasionally he will feel it. Notes that today has had a twinge/ache throughout the day left breast region occasionally inferior to the breast. Nothing seems to make it better or worse. He notes a family history of coronary artery disease (father had open heart surgery age 64) and is concerned him playing wanted to be evaluated. He does see Dr. Kumari for primary care. He denies any neck pain. 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 He denies any shortness of breath DVT or PE risk factors. He denies any leg symptoms. [facility] Medical History Easy bruising History of hiatal hernia History of edema Loss of hearing Wears glasses Alcohol use Arthritis Back pain Gastric reflux Non-smoker Leg cramps History of pain when walking Hypertension Home Medications ?Medication ?Instructions ?Recorded ?Last Taken ?Type acetaminophen 325 mg tablet 325 - 975 mg PO DAILY PRN Pain 01/23/22 06/17/24 History (Tylenol) amlodipine 10 mg tablet 10 mg PO DAILY 01/23/22 06/18/24 History hydrochlorothiazide 25 mg tablet 25 mg PO DAILY 01/23/22 06/18/24 History multivitamin (Daily Multi-Vitamin 1 tab PO DAILY 06/18/24 Unknown History tablet) omeprazole 20 mg capsule,delayed 20 mg PO DAILY 06/18/24 06/18/24 History release Allergy/AdvReac Type Severity Reaction Status Date / Time No Known Allergies Allergy Verified 06/18/24 16:29 Family History Daughter Ulcerative colitis Uncle Colon cancer Surgical History History of wisdom tooth extraction History of esophagogastroduodenoscopy (EGD) Hx of toe surgery History of carpal tunnel surgery of right wrist Social History Smoking Status: Never smoker additional social history: ROS ROS ED Constitutional Constitutional ED: Denies chills, fever(s) or weight loss Eyes Eyes: Denies change in vision or diplopia ENT ENT ED: Denies ear pain, rhinorrhea or sore throat Cardiovascular Cardiovascular: Reports as per HPI and chest pain; Denies orthopnea, palpitations or racing heartbeat Respiratory/Chest Respiratory/Chest: Denies cough, dyspnea or orthopnea Gastrointestinal Gastrointestinal: Denies abdominal pain, diarrhea, nausea or vomiting Genitourinary Genitourinary ED: Denies dysuria, hematuria or urinary frequency Musculoskeletal Musculoskeletal: Reports other Details: See history of present illness ; Denies arthralgias, back pain, myalgias or neck pain Integumentary Denies abscess or rash Neurologic Neurologic: Denies headache(s), paresthesias or weakness Psychiatric Psychiatric: Denies anxiety, depression, suicidal ideation or suicidal thoughts Endocrine Endocrinology: Denies polydipsia, polyphagia or polyuria Allergic/Immunologic Allergic/Immunologic ED: Denies mouth swelling, tongue swelling or urticaria EXAM Physical Exam Const Vital Signs: 06/18/24 16:30 06/18/24 16:32 06/18/24 17:58 Temperature 98.4 F Temperature Source Oral Pulse Rate 69 68 Respiratory Rate 18 11 L Respiratory Effort Normal Blood Pressure 150/84 H Blood Pressure Mean 106 Pulse Ox 99 96 Oxygen Delivery Method Room Air 06/18/24 18:00 06/18/24 18:15 06/18/24 18:30 Temperature Temperature Source Pulse Rate 67 66 72 Respiratory Rate 18 19 H 16 Respiratory Effort Blood Pressure 140/91 H Blood Pressure Mean 104 Pulse Ox 98 97 98 Oxygen Delivery Method 06/18/24 18:40 06/18/24 18:45 06/18/24 19:00 Temperature Temperature Source Pulse Rate 64 69 Respiratory Rate 11 L 16 Respiratory Effort Blood Pressure 136/80 H Blood Pressure Mean 97 Pulse Ox 98 97 Oxygen Delivery Method 06/18/24 19:40 Temperature 98.9 F Temperature Source Pulse Rate 71 Respiratory Rate 13 Respiratory Effort Blood Pressure 144/84 H Blood Pressure Mean 104 Pulse Ox 99 Oxygen Delivery Method Positive well nourished and well developed General Appearance ED: well developed HEENT Reports normocephalic, head/scalp atraumatic and moist mucous membranes Eyes PERRL and EOMs intact bilaterally Neck no lymphadenopathy, supple and no JVD Resp normal respiratory effort and clear to auscultation bilaterally Cardio regular rate, regular rhythm and no murmurs GI normal to inspection, nondistended, normoactive bowel sounds and non-tender Palpation: soft Back/Spine no CVA tenderness and normal ROM Extremity normal to inspection General Extremety ED: Negative for edema General Extremity: Negative for edema Neuro oriented x3 and CN's II-XII intact bilaterally Sensorium / Orientation: alert Motor Exam: strength 5/5 throughout Psych mental status grossly normal Mood & Affect: Negative for depressed or tearful Skin no rashes or lesions noted and no wounds Heart Score History: Slightly/Non-Suspicious ECG: Normal Age: >45 - <65 years Risk Factors: 1 or 2 Risk Factors Score: 2 MDM MDM MDM Narrative Medical decision making narrative: Differential diagnosis includes but not limited to acute coronary syndrome pneumothorax wall pain GERD cervical radiculopathy aortic dissection/aneurysm pulmonary embolism EKG demonstrates a normal sinus rhythm ventricular rate of 67 bpm. Initial troponin 29. Second troponin 26 BMP within normal except for glucose of 112 normal CBC. Patient's had no significant vents on the monitor. I believe the patient can be discharged home and we can have him follow-up with primary care to arrange outpatient stress testing. Patient is comfortable with this plan understands return instructions History & Record Review Discussion w/independent historian: Patient Additional record(s) reviewed:: Prior ED visit and Prior labs Lab Data Attestation: I reviewed the patient's lab results. Labs: Laboratory Results - last 24 hr 06/18/24 06/18/24 16:39 18:41 WBC 7.0 RBC 5.42 Hgb 15.7 Hct 46.8 MCV 86.3 MCH 29.0 MCHC 33.5 RDW Std Deviation 42.0 RDW Coeff of [place] 13.5 Plt Count 279 MPV 9.4 Immature Gran % (Auto) 0.400 Neut % (Auto) 67.5 Lymph % (Auto) 24.1 [place] % (Auto) 6.4 Eos % (Auto) 0.7 Baso % (Auto) 0.9 Absolute Neuts (auto) 4.7 Absolute Lymphs (auto) 1.69 Nucleated RBC % 0 Sodium 137 Potassium 3.8 Chloride 102 Carbon Dioxide 24.3 Anion Gap 11 BUN 14 Creatinine 1.00 Estim Creat Clear Calc 83.39 Est GFR (MDRD) Non-Af 84 BUN/Creatinine Ratio 14.3 Glucose 112 H Calcium 9.8 Troponin T High Sens 29 H Troponin T Hi Sens 2 Hr 26 H Radiography Diagnostic Testing: Clinical Impression(s) from Imaging Studies Chest X-Ray 06/18/24 16:55 IMPRESSION: No Acute Findings. Reading Location: [facility] EKG Initial EKG: Attestation: I personally reviewed and interpreted this EKG as follows: Comments: Normal sinus rhythm ventricular rate of 67 bpm Discharge Plan Triage Chief Complaint: Chest Pain ED Provider: Gordo Crespo Dx/Rx/DC Orders Clinical Impression: Chest pain Instructions: ED Chest Pain, Uncertain Cause Prescriptions: No Action amlodipine 10 mg tablet 10 mg PO DAILY hydrochlorothiazide 25 mg tablet 25 mg PO DAILY acetaminophen [Tylenol] 325 mg tablet 325 - 975 mg PO DAILY PRN (Reason: Pain) multivitamin [Daily Multi-Vitamin] Tablet 1 tab PO DAILY Patient Comments: PT TAKES WHEN HE REMEMBERS omeprazole 20 mg capsule,delayed release(DR/EC) 20 mg PO DAILY Rx Instructions: take once daily 30 minutes before breakfast every morning Primary Care Provider: Omar Rodriges Referrals: Omar Rodriges MD [Primary Care Provider] - As soon as possible (to discuss cardiac stress testing ) Print Language: Irish Disposition Disposition: Home, Self Care Discharge Date/Time: 06/18/24 19:47
[2024-06-18 16:54] LABS: Absolute Lymphocyte Count 1.69 X10^3/uL (0.83-4.51); Absolute Neutrophil Count 4.7 X10^3/uL (2.0-7.7); Basophil# 0.06 X10^3/uL; Basophil% 0.9 % (0-1); Eosinophil# 0.05 X10^3/uL; Eosinophils% 0.7 % (0-5); Hematocrit 46.8 % (40-54); Hemoglobin 15.7 g/dL (13.0-16.5); Lymphocyte # 1.69 X10^3/ul (0.83-4.51); Lymphocyte % 24.1 % (19-41); Mean Corp Hgb Conc 33.5 g/dL (32-36); Mean Corpuscular Volume 86.3 fL (80-94); Mean Platelet Vol. 9.4 fl (6.2-12.0); Monocyte# 0.45 X10^3/uL; Monocyte% 6.4 % (0-10); NRBC Flagged by Analyzer 0 % (0-5); Neutrophil # 4.73 X10^3/uL (2.7-7.7); Neutrophil % 67.5 % (47-70); Platelet Count 279 K/mm3 (150-450); RBC Distribution Width CV 13.5 % (11.6-14.6); Red Blood Count 5.42 M/mm3 (4.6-6.2)
--- NOTE | 2024-06-18 16:55 | RAD_ITS ---
PROCEDURE: CHEST 1 VIEW (PORTABLE) 06/18/2024 REASON FOR EXAM: CHEST PAIN TECHNIQUE: Frontal view of the chest. COMPARISON: None FINDINGS: Hardware: None Heart: The heart size is normal. Lungs: No focal consolidation. No pneumothorax. No pleural effusion. Bones: The bones are unremarkable. Other: RAD/Chest 1 View (Portable) IMPRESSION: No Acute Findings. Reading Location: [facility]
[2024-06-18 17:23] LABS: Anion Gap 11 (5-15); BUN 14 mg/dL (4-19); BUN/Creat Ratio 14.3 RATIO (10-20); Calcium,Total 9.8 mg/dL (7.6-11.0); Carbon Dioxide 24.3 mmol/L (21.0-32.0); Chloride 102 mmol/L (98-108); EST Glomerular Filtration Rate 84 (>60); Estimated Creatinine Clearance 83.39 ml/min (50-250); Glucose 112 mg/dL (70-99); Potassium 3.8 mmol/L (3.3-5.1); Sodium Level 137 mmol/L (133-145); Troponin T High Sensitivity 29 ng/L (<=22)
[2024-06-18 19:06] LABS: Troponin T High Sens 2 HR 26 ng/L (<=22)
== END 2024-06-18 19:47 | disposition home or self-care (01) ==
PROVIDERS: Emergency Provider Emergency Medicine; PCP Family Medicine; Visit Provider Emergency Medicine
DX: R07.9 Chest pain, unspecified (principal); R73.03 Prediabetes; I10 Essential (primary) hypertension; Z79.899 Other long term (current) drug therapy
CPT/HCPCS: 71045; 80048; 84484; 85025; 93005; 99285; A4216

== ENCOUNTER → 2024-07-06 | Outpatient (CLI) | payer BC, SELFPAY ==
--- NOTE | 2024-07-06 16:39 | STRESSREP ---
Stress Test Report Exercise stress test. 63-year-old male with a history of chest pain Stress protocol: Resting EKG demonstrates normal sinus rhythm with a rate of 80 bpm resting blood pressure is 130/78 mmHg. The patient exercised according to the regular [facility] protocol for a total duration of 6 minutes attaining a maximum heart rate of 151 bpm which was 96% of maximum predicted heart rate; the maximum workload was 7 metabolic equivalents. At rest there were no ST or T wave changes noted to suggest ischemia and at peak exercise upsloping ST changes only were noted which did not meet the criteria for ischemia. No clinical angina was noted the test was terminated due to the target heart rate being achieved/fatigue. The peak blood pressure was 188/78 mmHg. Rate-pressure product was 28,300. Conclusion: Stress test with no EKG criteria for ischemia at a moderate workload.
== END | disposition home or self-care (01) ==
LOC: CVS 09:55
PROVIDERS: PCP Family Medicine; Referring Provider Family Medicine; Visit Provider Family Medicine
DX: R73.02 Impaired glucose tolerance (oral) (principal); R07.9 Chest pain, unspecified; I10 Essential (primary) hypertension
CPT/HCPCS: 93017

== ENCOUNTER → 2024-08-31 | Outpatient (CLI) | payer BC, SELFPAY ==
[2024-08-31 12:07] LABS: Hematocrit 45.5 % (40-54); Hemoglobin 14.8 g/dL (13.0-16.5); Immature Granulocytes Count 0.010 X10^3/uL (0.0-0.0); Mean Corp Hgb Conc 32.5 g/dL (32-36); Mean Corpuscular Volume 88.2 fL (80-94); Mean Platelet Vol. 9.4 fl (6.2-12.0); NRBC Flagged by Analyzer 0 % (0-5); Platelet Count 285 K/mm3 (150-450); RBC Distribution Width CV 13.8 % (11.6-14.6); RBC Distribution Width SD 44.9 fl (35.1-43.9); Red Blood Count 5.16 M/mm3 (4.6-6.2); White Blood Count 6.4 K/mm3 (4.4-11.0)
[2024-08-31 12:47] LABS: AST(SGOT) 26 U/L (<=37); Alanine Aminotransfer ALT/SGPT 21 U/L (<=46); Albumin, Serum 4.4 g/dL (3.4-4.8); Alkaline Phosphatase 63 U/L (40-129); Anion Gap 12 (5-15); BUN 22 mg/dL (4-19); BUN/Creat Ratio 19.3 RATIO (10-20); Calcium,Total 9.6 mg/dL (7.6-11.0); Carbon Dioxide 25.0 mmol/L (21.0-32.0); Chloride 101 mmol/L (98-108); Cholesterol 179 mg/dL (<=200); Globulin 2.9 g/dL (2.2-4.2); Glucose 105 mg/dL (70-99); Low Density Lipoprotein Calc. 110 mg/dL; Magnesium 2.3 mg/dL (1.5-2.2); PSA,Total - Annual Screen 3.78 ng/mL (0.02-4.00); Potassium 3.8 mmol/L (3.3-5.1); Triglycerides 85 mg/dL; Very Low Density Lipoprotein 17 mg/dL (5-40); cholesterol:hdl ratio screen 3.42
--- OUTSIDE RECORDS SUMMARY | 2024-08-31 21:03 | XMS RPT_ITS | CCD ---
Author Organization [facility] Care Team Providers Care Gum Sprayer Name Role Phone Dr. Omar Rodriges Primary Care Provider Dr. Omar Rodriges Referring Provider Dr. Zion Juarez Attending Provider Dr. Zion Juarez Other Provider Dr. Omar Rodriges Primary Care Provider Dr. Omar Rodriges Referring Provider Dr. Zion Juarez Attending Provider [phone] Paula Barth Attending Provider Unavailable Dr. Omar Rodriges Primary Care Provider [phone] Dr. Omar Rodriges Referring Provider Dr. Zion Juarez Attending Provider [phone] Zion Juarez Other Provider Dr. Omar Rodriges MD Primary Care Provider [phone] Dr. Omar Rodriges MD Referring Provider Vasquez ALFAROCAlicia Attending Provider Dr. Gordo Crespo DO Attending Provider Dr. Gordo Crespo DO Emergency Provider Dr. Omar Rodriges MD Attending Provider Dr. Omar Rodriges MD Other Provider [phone] Erlin Lynn MD Attending Provider Nata Mejia Attending Unavailable Nata Mejia Referring Unavailable Omar Rodriges Primary Care Unavailable Omar Rodriges Primary Care Unavailable Omar Rodriges Attending Unavailable Omar Rodriges Referring Unavailable Omar Rodriges Attending Unavailable Omar Rodriges Referring Unavailable Omar Rodriges Primary Care Unavailable Gordo Crespo Attending Unavailable Omar Rodriges Primary Care Unavailable Omar Rodriges Consulting Unavailable Erlin Lynn Attending Unavailable Omar Rodriges Referring Unavailable Omar Rodriges Primary Care Unavailable Alicia Ovalle Attending Unavailable Omar Rodriges Referring Unavailable Omar Rodriges Primary Care Unavailable Omar Rodriges Primary Care Unavailable Omar Rodriges Attending Unavailable Medications Current Medications Medication Drug Class(es) Dates Sig (Normalized) Sig (Original) acetaminophen 325 mg oral tablet (6 sources) Start: 01-24-20 take 325-975 mg by mouth once daily as needed for pain Acetaminophen (Tylenol) 325 mg tablet Active 325 - 975 mg PO DAILY as needed for Pain January 23, 2022 1:00am amLODIPine 10 mg oral tablet (6 sources) Dihydropyridine Calcium Channel Kyle Start: 01-24-20 take 1 tablet by mouth once daily Amlodipine 10 mg tablet Active 10 mg PO DAILY January 23, 2022 1:00am hydroCHLOROthiazide 25 mg oral tablet (6 sources) Thiazide Diuretic Start: 01-24-20 take 1 tablet by mouth once daily Hydrochlorothiazide 25 mg tablet Active 25 mg PO DAILY January 23, 2022 1:00am Multivitamin (Daily Multi-Vitamin) tablet (1 source) Start: 06-19-19 Multivitamin (Daily Multi-Vitamin) tablet Active 1 {tbl} PO DAILY June 18, 2024 12:00am Multivitamin preparation (5 sources) Start: 02-07-20 take 1 capsule by mouth once daily Multivitamin Active 1 CAP PO DAILY February 06, 2022 1:00am Start: 02-06-2022 take 1 capsule by [facility] once daily Multivitamin Active 1 CAP PO DAILY February 06, 2022 12:00am omeprazole 20 mg delayed release oral capsule (15 sources) Proton Pump Inhibitor Start: 08-25-2022 End: 06-18-2024 take 1 capsule by mouth once daily 30 minutes before breakfast Omeprazole 20 mg capsule,delayed release(DR/EC) Active 20 mg PO DAILY June 18, 2024 12:00am take once daily 30 minutes before breakfast every morning Start: 02-14-2022 End: 08-25-2022 take 1 capsule by mouth twice daily Omeprazole 20 mg capsule,delayed release(DR/EC) Discontinued 20 mg PO TWICE A DAY 180 90 February 14, 2022 1:00am August 25, 2022 10:41am Start: 01-23-2022 End: 07-31-2022 take 1 capsule by mouth once daily Omeprazole 20 mg capsule,delayed release(DR/EC) Discontinued 20 mg PO DAILY January 23, 2022 1:00am July 31, 2022 11:51am Completed/Discontinued Medications Medication Drug Class(es) Dates Sig (Normalized) Sig (Original) Multivitamin Capsule (1 source) Start: 02-06-2022 End: 06-18-2024 Multivitamin Capsule Discontinued 1 NMA PO DAILY February 06, 2022 1:00am June 18, 2024 5:18pm Problems Active Problems Problem Classification Problem Date Documented Date Episodic/Chronic Diabetes mellitus without complication (1 source) Impaired glucose tolerance (oral); Translations: [Impaired glucose tolerance (oral)] Onset: 07-25-2024 Episodic Esophageal disorders (12 sources) Gastro-esophageal reflux disease without esophagitis; Translations: [Esophageal reflux] Chronic Essential hypertension (7 sources) Hypertensive disorder; Translations: [Essential (primary) hypertension] Onset: 07-25-2024 01-23-2022 Chronic Immunizations and screening for infectious disease (8 sources) Requires tetanus and diphtheria vaccination; Translations: [Encounter for immunization] 11-27-2021 Episodic Nonspecific chest pain (2 sources) Chest pain; Translations: [Chest pain, unspecified] Onset: 06-22-2024 06-26-2024 Episodic Osteoarthritis (6 sources) Arthritis; Translations: [Unspecified osteoarthritis, unspecified site] 01-23-2022 Chronic Other injuries and conditions due to external causes (8 sources) Injury of nail bed of finger; Translations: [Unspecified injury of left wrist, hand and finger(s), initial encounter] 11-27-2021 Episodic Residual codes; unclassified (6 sources) Other specified postprocedural states; Translations: [Other postprocedural status] 02-14-2022 Episodic Unclassified (1 source) to discuss cardiac stress testing Past or Other Problems Problem Classification Problem Date Documented Da te Episodic/Chronic Other screening for suspected conditions (not mental disorders or infectious disease) (6 sources) Patient encounter status; Translations: [Encounter for screening for malignant neoplasm of colon] Onset: 09-10-2023 07-31-2022 Episodic Results Test Name Value Interpretation Reference Range Facility Cardiovascular stress test r eportOrdered By: Erlin Lynn on 07-06-2024 Study report [facility] Cardiovascular Services [address] [place] [address] MR#: [id number] Acct: [id number] Name: DANTE HIRSCH Rep #: [id number] : 1960 63 From: Erlin Lynn MD Primary Care: Dr. Omar Rodriges MD Sta tus: REG CLI Referring Dr: Omar Rodriges MD Sex: M C Stress Test Report Exercise stress test. 63-year-old male with a history of chest pain Stress protocol: Resting EKG demonstrates normal sinus rhythm with a rate of 80 bpm resting bloodpressure is 130/78 mmHg. The patient exercised according to the regular [facility] protocol for a total duration of 6 minutes attaining a maximum heart rate of 151bpm which was 96% of maximum predicted heart rate; the maximum workload was 7 metabolic equivalents. At rest there were no ST or T wave changes noted to suggest ischemia and at peak exercise upsloping ST changes only were noted whichdid not meet the criteria for ischemia. No clinical angina was noted the test was terminated due to the target heart rate being achieved/fatigue. The peak blood pressure was 188/78 mmHg. Rate-pressure product was 28,300. Conclusion: Stress test with no EKG criteria for ischemia at a moderate workload. 07/06/24 1640 Date _ Erlin Lynn MD CC: Dr. Omar Rodriges MD ~ Date Dictated: 07/06/24 163 Date Transcribed: 07/06/241638 Master Chef: CO Signed [facility] Work Phone: Stress Reporton 07-06-2024 Stress Report [facility] Cardiovascular Services [address] [place] [address] MR#: [id number] Acct: [id number] Name: DANTE HIRSCH Rep #: [id number] : 1960 63 From: Erlin Lynn MD Primary Care: Dr. Omar Rodriges MD Status: [facility] Referring Dr: Omar Rodriges MD Sex: M C Stress Test Report Exercise stress test. 63-year-old male with a history of chest pain Stress protocol: Resting EKG demonstrates normal sinus rhythm with a rate of 80 bpm resting blood pressure is 130/78 mmHg. The patient exercised according to the regular [facility] protocol for a total duration of 6 minutes attaining a maximum heart rate of 151 bpm which was 96% of maximum predicted heart rate; the maximum workload was 7 metabolic equivalents. At rest there were no ST or T wave changes noted to suggest ischemia and at peak exercise upsloping ST changes only were noted which did not meet the criteria for ischemia. No clinical angina was noted the test was terminated due to the target heart rate being achieved/fatigue. The peak blood pressure was 188/78 mmHg. Rate-pressure product was 28,300. Conclusion: Stress test with no EKG criteria for ischemia at a moderate workload. 07/06/24 1640 Date Erlin Lynn MD CC: Dr. Omar Rodriges MD Date Dictated: 07/06/241638 Date Transcribed: 07/06/241638 Master Chef: CO Signed Normal [facility] 12 Lead EKGon 06-18-2024 12 Lead EKG [facility] Cardiovascular Services [address] [place] [address] 12 Lead EKG 06/18/24 163 MR#: [id number] Acct: [id number] Name: DANTE HIRSCH Rep #: [id number] : 1960 63 From: Porter Galindo MD Attending Dr: Dr. Gordo Crespo, DO Status: DEP ER Ordering Dr: Gordo Crespo DO Date: 06/18/24 Location: ED Sex: M C Admitted: Test Reason : CP Blood Pressure : */* mmHG Vent. Rate : 67 BPM Atrial Rate : 67 BPM P-R Int : 156 ms QRS Dur : 96 ms QT Int : 386 ms P-R-T Axes : 32 -4 26 degrees QTcB Int : 407 ms Normal sinus rhythm Normal ECG Confirmed by Porter Galindo ([id number]), advertising editor YULIANA JEFFREY ([id number]) on 06/24/2024 12:58:27 PM Referred By: Confirmed By: Porter Galindo 06/24/24 1258 Date Porter Galindo MD CC: Dr. Gordo Crespo DO; Dr. Omar Rodriges MD Signed Normal [facility] Absolute lymphocyte countOrd ered By: Gordo Crespo on 06-18-2024 Lymphocytes Auto (Unsp spec) [#/Vol] 1.69 10*3/uL 0.83-4.51 [facility] Absolute neutrophil countOrd ered By: Gordo Crespo on 06-18-2024 Neutrophils (Bld) [#/Vol] 4.7 10*3/uL 2.0-7.7 [facility] Anion gap in Serum or Plasma Ordered By: Gordo Crespo on 06-18-2024 Anion gap [Moles/Vol] 11 mmol/L 06-30 [facility] Automated lymphocyte count a s percentage of total leukocytesOrdered By: Gordo Crespo on 06-18-2024 Lymphocytes/100 WBC Auto (Unsp spec) 24.1 % - [facility] BUN/creatinine ratioOrdered By: Gordo Crespo on 06-18-2024 Urea nitrogen/Creatinine [Mass ratio] 14.3 mg/mg - [facility] Basic Metabolic Profile (BMP )on 06-18-2024 BUN/CRE 14.3 RATIO Normal 12-05 [facility] Comment on above: Performed By: #### L 100.0100, L500.2500, L501.4021 ####[facility] [address] [place], [address] Calcium [Mass/Vol] 9.8 mg/dL Normal 7.6-11.0 [facility] Comment on above: Performed By: #### L 100.0100, L500.2500, L501.4021 ####[facility] [address] [place], [address] Chloride [Moles/Vol] 102 mmol/L Normal 98-[address] [facility] Comment on above: Performed By: #### L 100.0100, L500.2500, L501.4021 ####[facility] [address] [place], [address] CO2 [Moles/Vol] 24.3 mmol/L Normal 21.0-32.0 [facility] Comment on above: Performed By: #### L 100.0100, L500.2500, L501.4021 ####[facility] [address] [place], [address] Creatinine [Mass/Vol] 1.00 mg/dL Normal 0.70-1.20 [facility] Comment on above: Performed By: #### L 100.0100, L500.2500, L501.4021 ####[facility] [address] [place], [address] ECRCL 83.39 ml/min Normal 50-250 [facility] Comment on above: Performed By: #### L 100.0100, L500.2500, L501.4021 ####[facility] [address] [place], [address] GAP 11 Normal 5-15 [facility] Comment on above: Performed By: #### L 100.0100, L500.2500, L501.4021 ####[facility] [address] [place], [address] GFR/1.73 sq M.predicted among non-blacks MDRD (S/P/Bld) [Vol rate/Area] 84 mL/min/{1.73_m2} Normal >60 [facility] Comment on above: Result Comment: mL/m in/1.73m2 CKD-EPI Creatinine Equation (2020) Performed By: #### L 100.0100, L500.2500, L501.4021 ####[facility] [address] [place], [address] Glucose [Mass/Vol] 112 mg/dL High 70-99 [facility] Comment on above: Performed By: #### L 100.0100, L500.2500, L501.4021 ####[facility] [address] [place], [address] Potassium [Moles/Vol] 3.8 mmol/L Normal 3.3-5.1 [facility] Comment on above: Performed By: #### L 100.0100, L500.2500, L501.4021 ####[facility] [address] [place], [address] Sodium [Moles/Vol] 137 mmol/L Normal 133-145 [facility] Comment on above: Performed By: #### L 100.0100, L500.2500, L501.4021 ####[facility] [address] [place], [address] Urea nitrogen [Mass/Vol] 14 mg/dL Normal 4-19 [facility] Comment on above: Performed By: #### L 100.0100, L500.2500, L501.4021 ####[facility] [address] [place], [address] Basophil percentageOrdered B y: Gordo Cherie on 06-18-2024 Basophils/100 WBC (Bld) 0.9 % 0-1 [facility] CBC W/Diff, Automatedon Absolute Lymph 1.69 X10 3/uL Normal 0.83-4.51 [facility] Comment on above: Performed By: #### L 100.0100, L500.2500, L501.4021 #### [facility] [address] [place], [address] Absolute Neut 4.7 X10 3/uL Normal 2.0-7.7 [facility] Comment on above: Performed By: #### L 100.0100, L500.2500, L501.4021 #### [facility] [address] [place], [address] Basophils/100 WBC (Bld) 0.9 % Normal 0-1 [facility] Comment on above: Performed By: #### L 100.0100, L500.2500, L501.4021 #### [facility] [address] [place], [address] Eosinophils/100 WBC (Bld) 0.7 % Normal 0-5 [facility] Comment on above: Performed By: #### L 100.0100, L500.2500, L501.4021 #### [facility] [address] [place], [address] Erythrocyte distribution width (RBC) [Ratio] 13.5 % Normal 11.6-14.6 [facility] Comment on above: Performed By: #### L 100.0100, L500.2500, L501.4021 #### [facility] [address] [place], [address] Hematocrit (Bld) [Volume fraction] 46.8 % Normal 40-54 [facility] Comment on above: Performed By: #### L 100.0100, L500.2500, L501.4021 #### [facility] [address] [place], [address] Hemoglobin (Bld) [Mass/Vol] 15.7 g/dL Normal 13.0-16.5 [facility] Comment on above: Performed By: #### L 100.0100, L500.2500, L501.4021 #### [facility] [address] [place], [address] IG% 0.400 Normal 0.0-0.9 [facility] Comment on above: Result Comment: IG% - Immature Granulocytes (promyelocytes, myelocytes and metamyelocytes) > 1% indicates that a LEFT SHIFT is Present. Performed By: #### L 100.0100, L500.2500, L501.4021 #### [facility] [address] [place], [address] Lymphocytes/100 WBC (Bld) 24.1 % Normal 19-41 [facility] Comment on above: Performed By: #### L 100.0100, L500.2500, L501.4021 #### [facility] [address] [place], [address] MCH (RBC) [Entitic mass] 29.0 pg Normal 27.0-32.0 [facility] Comment on above: Performed By: #### L 100.0100, L500.2500, L501.4021 #### [facility] [address] [place], [address] MCHC (RBC) [Mass/Vol] 33.5 g/dL Normal 32-36 [facility] Comment on above: Performed By: #### L 100.0100, L500.2500, L501.4021 #### [facility] [address] [place], [address] MCV (RBC) [Entitic vol] 86.3 fL Normal 80-94 [facility] Comment on above: Performed By: #### L 100.0100, L500.2500, L501.4021 #### [facility] [address] [place], [address] Monocytes/100 WBC (Bld) 6.4 % Normal 0-10 [facility] Comment on above: Performed By: #### L 100.0100, L500.2500, L501.4021 #### [facility] [address] [place], [address] Neutrophils/100 WBC (Bld) 67.5 % Normal 47-70 [facility] Comment on above: Performed By: #### L 100.0100, L500.2500, L501.4021 #### [facility] [address] [place], [address] Nucleated RBC (Bld) [#/Vol] 0 10*3/uL Normal 0-5 [facility] Comment on above: Performed By: #### L 100.0100, L500.2500, L501.4021 #### [facility] [address] [place], [address] Platelet mean volume (Bld) [Entitic vol] 9.4 fL Normal 6.2-12.0 [facility] Comment on above: Performed By: #### L 100.0100, L500.2500, L501.4021 #### [facility] [address] [place], [address] Platelets (Bld) [#/Vol] 279 10*3/uL Normal 150-450 [facility] Comment on above: Performed By: #### L 100.0100, L500.2500, L501.4021 #### [facility] [address] [place], [address] RBC (Bld) [#/Vol] 5.42 10*6/uL Normal 4.6-6.2 [facility] Comment on above: Performed By: #### L 100.0100, L500.2500, L501.4021 #### [facility] [address] [place], [address] RDW SD 42.0 fl Normal 35.1-43.9 [facility] Comment on above: Performed By: #### L 100.0100, L500.2500, L501.4021 #### [facility] [address] [place], [address] WBC (Bld) [#/Vol] 7.0 10*3/uL Normal 4.4-11.0 [facility] Comment on above: Performed By: #### L 100.0100, L500.2500, L501.4021 #### [facility] [address] [place], [address] Carbon dioxide, total [Moles /volume] in Central venous bloodOrdered By: Gordo Crespo on 06-18-2024 CO2 [Moles/Vol] 24.3 mmol/L 21.0-32.0 [facility] Chest 1 View (Portable)on Chest 1 View (Portable) [facility] Imaging Services [address] [place] [address] Chest 1 View (Portable) MR#: [id number] Acct: [id number] Name: DANTE HIRSCH Rep #: [id number] : 1960 M 63 From: Elliott ríos MD PCP: Dr. Omar Rodriges MD Status: REG ER Study: Chest 1 View (Portable) Date of Exam: 06/18/24 Exam# [id number] Ordering Dr: Gordo Crespo DO PROCEDURE: CHEST 1 VIEW (PORTABLE) 06/18/2024 REASON FOR EXAM: CHEST PAIN TECHNIQUE: Frontal view of the chest. COMPARISON: None FINDINGS: Hardware: None Heart: The heart size is normal. Lungs: No focal consolidation. No pneumothorax. No pleural effusion. Bones: The bones are unremarkable. Other: RAD/Chest 1 View (Portable) IMPRESSION: No Acute Findings. Reading Location: [facility] CC: Dr. Gordo Crespo DO; Dr. Omar Rodriges MD Master Chef: Signed Normal [facility] Chloride assayOrdered By: Benny Crespo on 06-18-2024 Chloride [Moles/Vol] 102 mmol/L 98-[address] [facility] Emergency Department Summary on 06-18-2024 Emergency Department Summary [facility] Medical Records Department [address] [place] [address] Emergency Department Summary 06/18/24 MR#: [id number] Acct: [id number] Name: DANTE HIRSCH Rep #: [id number] : 1960 63 From: Gordo Crespo DO PCP: Dr. Omar Rodriges MD Status:DEP ER Location: ED HPI History of Present Illness Chief Complaint: Chest Pain Informant: patient Narrative Narrative: 63-year-old male presenting to the emergency room for evaluation of chest pain. Patient notes a history of hypertension. And prediabetes. He notes his cholesterols always been no prior stress test or heart catheterizations. Patient notes that for the past week he has had a pulled muscle like sensation in the left arm intermittently. States that he has been able to go to work due to his job and occasionally he will feel it. Notes that today has had a twinge/ache throughout the day left breast region occasionally inferior to the breast. Nothing seems to make it better or worse. He notes a family history of coronary artery disease (father had open heart surgery age 64) and is concerned him playing wanted to be evaluated. He does see Dr. Kumari for primary care. He denies any neck pain. 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 He denies any shortness of breath DVT or PE risk factors. He denies any leg symptoms. [facility] Medical History Easy bruising History of hiatal hernia History of edema Loss of hearing Wears glasses Alcohol use Arthritis Back pain Gastric reflux Non-smoker Leg cramps History of pain when walking Hypertension Home Medications ???Medication ???Instructions ???Recorded ???Last Taken ???Type acetaminophen 325 mg tablet 325 - 975 mg PO DAILY PRN Pain 10/0706/17/24 History (Tylenol) amlodipine 10 mg tablet 10 mg PO DAILY 01/23/22 06/18/24 H istory hydrochlorothiazide 25 mg tablet 25 mg PO DAILY 01/23/22 06/18/24 H istory multivitamin (Daily Multi-Vitamin 1 tab PO DAILY 06/18/24 Unknown H istory tablet) omeprazole 20 mg capsule,delayed 20 mg PO DAILY 06/18/24 06/18/24 H istory release Allergy/AdvReac Type Severity Reaction Status Date / Time No Known Allergies Allergy Verified 06/18/24 16:29 Family History Daughter Ulcerative colitis Uncle Colon cancer Surgical History History of wisdom tooth extraction History of esophagogastroduodenoscopy (EGD) Hx of toe surgery History of carpal tunnel surgery of right wrist Social History Smoking Status: Never smoker additional social history: ROS ROS ED Constitutional Constitutional ED: Denies chills, fever(s) or weight loss Eyes Eyes: Denies change in vision or diplopia ENT ENT ED: Denies ear pain, rhinorrhea or sore throat Cardiovascular Cardiovascular: Reports as per HPI and chest pain; Denies orthopnea, palpitations or racing heartbeat Respiratory/Chest Respiratory/Chest: Denies cough, dyspnea or orthopnea Gastrointestinal Gastrointestinal: Denies abdominal pain, diarrhea, nausea or vomiting Genitourinary Genitourinary ED: Denies dysuria, hematuria or urinary frequency Musculoskeletal Musculoskeletal: Reports other Details: See history of present illness ; Denies arthralgias, back pain, myalgias or neck pain Integumentary Denies abscess or rash Neurologic Neurologic: Denies headache(s), paresthesias or weakness Psychiatric Psychiatric: Denies anxiety, depression, suicidal ideation or suicidal thoughts Endocrine Endocrinology: Denies polydipsia, polyphagia or polyuria Allergic/Immunologic Allergic/Immunologic ED: Denies mouth swelling, tongue swelling or urticaria EXAM Physical Exam Const Vital Signs: 06/18/24 16:30 06/18/24 16:32 06/18/24 17:58 Temperature 98.4 F Temperature Source Oral Pulse Rate 69 68 Respiratory Rate 18 11 L Respiratory Effort Normal Blood Pressure 150/84 H Blood Pressure Mean 106 Pulse Ox 99 96 Oxygen Delivery Method Room Air 06/18/24 18:00 06/18/24 18:15 06/18/24 18:30 Temperature Temperature Source Pulse Rate 67 66 72 Respiratory Rate 18 19 H 16 Respiratory Effort Blood Pressure 140/91 H Blood Pressure Mean 104 Pulse Ox 98 97 98 Oxygen Delivery Method 06/18/24 18:40 06/18/24 18:45 06/18/24 19:00 Temperature Temperature Source Pulse Rate 64 69 Respiratory Rate 11 L 16 Respiratory Effort Blood Pressure 136/80 H Blood Pressure Mean 97 Pulse Ox 98 97 Oxygen Delivery Method 06/18/24 19:40 (more content not included)... Normal [facility] Eosinophil percentageOrdered By: Gordo Crespo on 06-18-2024 Eosinophils/100 WBC (Bld) 0.7 % 0-5 [facility] Erythrocyte distribution wid th ratioOrdered By: Gordo Crespo on 06-18-2024 Erythrocyte distribution width (RBC) [Ratio] 13.5 % 11.6-14.6 [facility] Erythrocyte distribution wid th standard deviationOrdered By: Gordo Crespo on 06-18-2024 Erythrocyte distribution width (RBC) [Ratio] 42.0 fl 35.1-43.9 [facility] Glomerular filtration rate ( GFR) estimation/1.73 sq m using serum, plasma, or whole bOrdered By: Gordo Crespo on 06-18-2024 GFR/1.73 sq M.predicted among non-blacks MDRD (S/P/Bld) [Vol rate/Area] 84 mL/min/{1.73_m2} >60 [facility] Comment on above: mL/min/1.73m2 CKD-EP I Creatinine Equation (2020) Hematocrit Auto (Bld) [Volum e fraction]Ordered By: Gordo Crespo on 06-18-2024 Hematocrit (Bld) [Volume fraction] 46.8 % 40-54 [facility] Hemoglobin measurementOrdere d By: Gordo Crespo on 06-18-2024 Hemoglobin (Bld) [Mass/Vol] 15.7 g/dL 13.0-16.5 [facility] Immature granulocytes/100 WB C Auto (Bld)Ordered By: Gordo Crespo on 06-18-2024 Immature granulocytes/100 WBC (Bld) 0.400 % 0.0-0.9 [facility] Comment on above: IG% - Immature Granu locytes (promyelocytes, myelocytes and metamyelocytes) > 1% indicates that a LEFT SHIFT is Present. L499.0042on 06-18-2024 Trop T High Sen 26 ng/L High <=22 [facility] Comment on above: Result Comment: Hemo lysis present, Results??could be affected. ?? Performed By: #### L 499.0042 ####[facility] [address] [place], [address] L501.4021on 06-18-2024 Trop T High Sen 29 ng/L High <=22 [facility] Comment on above: Performed By: #### L 100.0100, L500.2500, L501.4021 ####[facility] [address] [place], [address] MCV (mean corpuscular volume ) determinationOrdered By: Gordo Crespo on 06-18-2024 MCV (RBC) [Entitic vol] 86.3 fL 80-94 [facility] Mean corpuscular hemoglobin (MCH) determinationOrdered By: Gordo Crespo on 06-18-2024 MCH (RBC) [Entitic mass] 29.0 pg 27.0-32.0 [facility] Mean corpuscular hemoglobin concentration (MCHC) determinationOrdered By: Gordo Crespo on 06-18-2024 MCHC (RBC) [Mass/Vol] 33.5 g/dL 32-36 [facility] Mean platelet volume determi nationOrdered By: Gordo Crespo on 06-18-2024 Platelet mean volume (Bld) [Entitic vol] 9.4 fL 6.2-12.0 [facility] Monocyte percentageOrdered B y: Gordo Crespo on 06-18-2024 Monocytes/100 WBC (Bld) 6.4 % 0-10 [facility] Neutrophil percentageOrdered By: Gordo Crespo on 05-03-2025 Neutrophils/100 WBC (Bld) 67.5 % 47-70 [facility] Nucleated red blood cell per centageOrdered By: Gordo Crespo on 06-18-2024 Nucleated RBC/100 WBC (Bld) [Ratio] 0 % 0-5 [facility] Platelet countOrdered By: Benny Crespo on 06-18-2024 Platelets (Bld) [#/Vol] 279 10*3/uL 150-450 [facility] Potassium measurement (mass/ volume)Ordered By: Gordo Crespo on 06-18-2024 Potassium (Unsp spec) [Mass/Vol] 3.8 mmol/L 3.3-5.1 [facility] RBC Auto (Bld) [#/Vol]Ordere d By: Gordo Crespo on 06-18-2024 RBC (Bld) [#/Vol] 5.42 10*6/uL 4.6-6.2 [facility] Serum creatinine measurement (mass/volume)Ordered By: Gordo Crespo on 06-18-2024 Creatinine [Mass/Vol] 1.00 mg/dL 0.70-1.20 [facility] Serum glucose measurement (m ass/volume)Ordered By: Gordo Crespo on 06-18-2024 Glucose [Mass/Vol] 112 mg/dL High 70-99 [facility] Serum or plasma calcium floyd urement (mass/volume)Ordered By: Gordo Crespo on 06-18-2024 Calcium [Mass/Vol] 9.8 mg/dL 7.6-11.0 [facility] Serum or plasma urea nitroge n measurement (mass/volume)Ordered By: Gordo Crespo on 06-18-2024 Urea nitrogen [Mass/Vol] 14 mg/dL 4-19 [facility] Sodium levelOrdered By: Casper Crespo on 06-18-2024 Sodium [Moles/Vol] 137 mmol/L 133-145 [facility] Troponin T.cardiac [Mass/vol ume] in Serum or Plasma by High sensitivity methodOrdered By: Gordo Crespo on 06-18-2024 Troponin T.cardiac High sensitivity method [Mass/Vol] 26 ng/L High <22 [facility] Comment on above: Hemolysis present, R esults could be affected. Troponin T.cardiac High sensitivity method [Mass/Vol] 29 ng/L High <22 [facility] White blood cell (WBC) count Ordered By: Gordo Crespo on 06-18-2024 WBC (Bld) [#/Vol] 7.0 10*3/uL 4.4-11.0 [facility] Gastroenterology Visit Repor ton 05-18-2024 Gastroenterology Visit Report [facility]astroenterology [address] [place] [address] OFFICE VISIT Date of Service: 05/18/24 MR#: [id number] Acct: [id number] Name: DANTE HIRSCH Rep #: [id number] : 1960 Provider: HERON medina Age/Sex: 63/M Location: [facility] [place] Status: Signed Intake Vital Signs 08/26/22 06:39 05/18/24 10:47 Height 5 ft 9 in 5 ft 9 in Weight: 194 lb 8 oz BMI 28.7 BP 130/80 H Respiration 18 Pulse 78 Pulse Oximetry (%) 96 Oxygen Delivery Method room air Intake Visit Reasons: Acid reflux 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 Is patient in pain?: No Allergies No Known Allergies Allergy (Verified 05/18/24 10:38) Medications ???Medication ???Instructions ???Recorded ???Confirmed ???Type acetaminophen 325 mg tablet 325 mg PO ONCE PRN Pain 01/23/22 0 05/18/24 History (Tylenol) amlodipine 10 mg tablet 10 mg PO DAILY 01/23/22 05/18/24 H istory hydrochlorothiazide 25 mg tablet 25 mg PO DAILY 01/23/22 05/18/24 H istory multivitamin 1 cap PO DAILY 02/06/22 05/18/24 H istory omeprazole 20 mg capsule,delayed 20 mg PO QDAY #90 caps 05/18/24 Rx release PFSH Medical History Easy bruising History of hiatal hernia History of edema Loss of hearing Wears glasses Alcohol use Arthritis Back pain Gastric reflux Non-smoker Leg cramps History of pain when walking Hypertension Surgical History History of wisdom tooth extraction History of esophagogastroduodenoscopy (EGD) Hx of toe surgery History of carpal tunnel surgery of right wrist Family History Daughter Ulcerative colitis Uncle Colon cancer Social History Smoking Status: Never smoker additional social history: HPI HPI Chief Complaint: Discuss GERD/Surgery Details: DANTE HIRSCH, is a 63 M who presents to the office today for EGD 02/11/2022 ([place]) -negative Watts's, negative H. pylori - Benign-appearing esophageal stenosis. Dilated. Biopsied. - Erythematous mucosa in the antrum. Biopsied. - Normal examined duodenum. - One hemostatic clip was successfully placed at the gastroesophageal junction.This reapproximated mucosa COLON 08/26/2022 ([place]ul) - TA - Recall 5 years (August 2027) - Non-thrombosed external hemorrhoids, non-thrombosed internal hemorrhoids and internal hemorrhoids that prolapse with straining, but spontaneously regress to the resting position (Grade II) found on digital rectal exam. - One 4 mm polyp in the mid descending colon, removed with a cold biopsy forceps. Resected and retrieved. Esophageal Manometry 04/11/2022 revealed impaired LES relaxation tone which can be seen in EGJOO. With normal basal tone achalasia is unlikely. Elevated DCI suggest hypercontractility, however, DCI below 8000 is not classic for jackhammer esophagus. - reports his PCP wanted him to wean off PPI back in February --> QOD he did well but then when he discontinued he had quite a bit of HB - resuming QOD and symptoms persisted - denies any trouble swallowing - he is back on PPI daily and symptoms are well controlled - denies any N/V - denies any weight loss - caffeine couple cups a day - occasional use of Advil - very rare - he is a non-smoker - EtOH - 1 beer on weekends - denies any family h/o esophageal or gastric CA - he has a BM daily - denies any bleeding - worried about daughter/granddaughter moving to [place] - son-in-law is in the [employer] and they are being relocated - tearful during visit today ROS Const Constitutional: No fatigue, fever(s) or weight change ENT ENT: No difficulty swallowing Gastro GI: No abdominal pain, belching, bloating, change in bowel habits, change in stool character, coffee ground emesis, constipation, cramping, diarrhea, heartburn, difficulty swallowing, feeling full early, excessive flatus, incontinent of stools, Vomiting blood/hematemesis, Blood in stool, loose stools, Black,tarry stools, nausea/dyspepsia, pain with swallowing, vomiting or other Musc Musculoskeletal: Positive for joint pain and Arthritis Skin Skin: No yellowing of the eye or itchy eyes Psych Psychiatric: No anxiety and No depression Endo Endocrine: No fatigue or weight change Aller/Imm Allergy/Immunologic: No itchy eyes Uvaldo/Lymp Hematologic/Lymphatic: Positive for easy bruising; No easy bleeding Exam Const General: cooperative, healthy appearing, no acute distress and well developed Nutritional Appearance: average body habitus and well nourished Orientation: alert and oriented x3 (more content not included)... Normal [facility] CBC W/Diff, Automatedon Absolute Lymph 1.71 X10 3/uL Normal 0.83-4.51 [facility] Comment on above: Order Comment: Order Date: 02/23/24 Order Info: [id number] - CBCD Performed By: #### L 500.4050, L501.9985, L501.5200, L100.0100, L500.4100 #### [facility] [address] [place], [address] Absolute Neut 3.5 X10 3/uL Normal 2.0-7.7 [facility] Comment on above: Order Comment: Order Date: 02/23/24 Order Info: [id number] - CBCD Performed By: #### L 500.4050, L501.9985, L501.5200, L100.0100, L500.4100 #### [facility] [address] [place], [address] Basophils/100 WBC (Bld) 1.2 % High 0-1 [facility] Comment on above: Order Comment: Order Date: 02/23/24 Order Info: [id number] - CBCD Performed By: #### L 500.4050, L501.9985, L501.5200, L100.0100, L500.4100 #### [facility] [address] [place], [address] Eosinophils/100 WBC (Bld) 5.4 % High 0-5 [facility] Comment on above: Order Comment: Order Date: 02/23/24 Order Info: [id number] - CBCD Performed By: #### L 500.4050, L501.9985, L501.5200, L100.0100, L500.4100 #### [facility] [address] [place], [address] Erythrocyte distribution width (RBC) [Ratio] 13.7 % Normal 11.6-14.6 [facility] Comment on above: Order Comment: Order Date: 02/23/24 Order Info: 0184-1 - CBCD Performed By: #### L 500.4050, L501.9985, L501.5200, L100.0100, L500.4100 #### [facility] [address] [place], [address] Hematocrit (Bld) [Volume fraction] 47.0 % Normal 40-54 [facility] Comment on above: Order Comment: Order Date: 02/23/24 Order Info: [id number] - CBCD Performed By: #### L 500.4050, L501.9985, L501.5200, L100.0100, L500.4100 #### [facility] [address] [place], [address] Hemoglobin (Bld) [Mass/Vol] 15.0 g/dL Normal 13.0-16.5 [facility] Comment on above: Order Comment: Order Date: 02/23/24 Order Info: 0184-1 - CBCD Performed By: #### L 500.4050, L501.9985, L501.5200, L100.0100, L500.4100 #### [facility] [address] [place], [address] IG% 0.200 Normal 0.0-0.9 [facility] Comment on above: Order Comment: Order Date: 02/23/24 Order Info: [id number] - CBCD Result Comment: IG% - Immature Granulocytes (promyelocytes, myelocytes and metamyelocytes) > 1% indicates that a LEFT SHIFT is Present. Performed By: #### L 500.4050, L501.9985, L501.5200, L100.0100, L500.4100 #### [facility] [address] [place], [address] Lymphocytes/100 WBC (Bld) 28.2 % Normal 19-41 [facility] Comment on above: Order Comment: Order Date: 02/23/24 Order Info: 0184-1 - CBCD Performed By: #### L 500.4050, L501.9985, L501.5200, L100.0100, L500.4100 #### [facility] [address] [place], [address] MCH (RBC) [Entitic mass] 28.0 pg Normal 27.0-32.0 [facility] Comment on above: Order Comment: Order Date: 02/23/24 Order Info: 0184-1 - CBCD Performed By: #### L 500.4050, L501.9985, L501.5200, L100.0100, L500.4100 #### [facility] [address] [place], [address] MCHC (RBC) [Mass/Vol] 31.9 g/dL Low 32-36 [facility] Comment on above: Order Comment: Order Date: 02/23/24 Order Info: 0184-1 - CBCD Performed By: #### L 500.4050, L501.9985, L501.5200, L100.0100, L500.4100 #### [facility] [address] [place], [address] MCV (RBC) [Entitic vol] 87.9 fL Normal 80-94 [facility] Comment on above: Order Comment: Order Date: 02/23/24 Order Info: 0184-1 - CBCD Performed By: #### L 500.4050, L501.9985, L501.5200, L100.0100, L500.4100 #### [facility] [address] [place], [address] Monocytes/100 WBC (Bld) 7.3 % Normal 0-10 [facility] Comment on above: Order Comment: Order Date: 02/23/24 Order Info: 0184-1 - CBCD Performed By: #### L 500.4050, L501.9985, L501.5200, L100.0100, L500.4100 #### [facility] [address] [place], [address] Neutrophils/100 WBC (Bld) 57.7 % Normal 47-70 [facility] Comment on above: Order Comment: Order Date: 02/23/24 Order Info: 0184-1 - CBCD Performed By: #### L 500.4050, L501.9985, L501.5200, L100.0100, L500.4100 #### [facility] [address] [place], [address] Nucleated RBC (Bld) [#/Vol] 0 10*3/uL Normal 0-5 [facility] Comment on above: Order Comment: Order Date: 02/23/24 Order Info: 0184-1 - CBCD Performed By: #### L 500.4050, L501.9985, L501.5200, L100.0100, L500.4100 #### [facility] [address] [place], [address] Platelet mean volume (Bld) [Entitic vol] 9.4 fL Normal 6.2-12.0 [facility] Comment on above: Order Comment: Order Date: 02/23/24 Order Info: [id number] - CBCD Performed By: #### L 500.4050, L501.9985, L501.5200, L100.0100, L500.4100 #### [facility] [address] [place], [address] Platelets (Bld) [#/Vol] 296 10*3/uL Normal 150-450 [facility] Comment on above: Order Comment: Order Date: 02/23/24 Order Info: [id number]- - CBCD Performed By: #### L 500.4050, L501.9985, L501.5200, L100.0100, L500.4100 #### [facility] [address] [place], [address] RBC (Bld) [#/Vol] 5.35 10*6/uL Normal 4.6-6.2 [facility] Comment on above: Order Comment: Order Date: 02/23/24 Order Info: [id number]- - CBCD Performed By: #### L 500.4050, L501.9985, L501.5200, L100.0100, L500.4100 #### [facility] [address] [place], [address] RDW SD 43.8 fl Normal 35.1-43.9 [facility] Comment on above: Order Comment: Order Date: 02/23/24 Order Info: 0184-1 - CBCD Performed By: #### L 500.4050, L501.9985, L501.5200, L100.0100, L500.4100 #### [facility] [address] [place], [address] WBC (Bld) [#/Vol] 6.1 10*3/uL Normal 4.4-11.0 [facility] Comment on above: Order Comment: Order Date: 02/23/24 Order Info: 0184-1 - CBCD Performed By: #### L 500.4050, L501.9985, L501.5200, L100.0100, L500.4100 #### [facility] [address] [place], [address] Comprehensive Metabolic Prof ilon 02-23-2024 Albumin [Mass/Vol] 3.8 g/dL Normal 3.2-5.0 [facility] Comment on above: Order Comment: Order Date: 02/23/24 Order Info: [id number] - CMP Order Info: [id number] - LIPID Order Info: [id number] - MG Performed By: #### L 500.4050, L501.9985, L501.5200, L100.0100, L500.4100 #### [facility] [address] [place], [address] Albumin/Globulin [Mass ratio] 1.0 {ratio} Normal 0.9-2.4 [facility] Comment on above: Order Comment: Order Date: 02/23/24 Order Info: [id number] - CMP Order Info: [id number] - LIPID Order Info: [id number] - MG Performed By: #### L 500.4050, L501.9985, L501.5200, L100.0100, L500.4100 #### [facility] [address] [place], [address] ALK P 58 U/L Normal 45-117 [facility] Comment on above: Order Comment: Order Date: 02/23/24 Order Info: [id number] - CMP Order Info: [id number] - LIPID Order Info: [id number] - MG Performed By: #### L 500.4050, L501.9985, L501.5200, L100.0100, L500.4100 #### [facility] [address] [place], [address] ALT [Catalytic activity/Vol] 33 U/L Normal 16-61 [facility] Comment on above: Order Comment: Order Date: 02/23/24 Order Info: 86-1 - CMP Order Info: [id number] - LIPID Order Info: [id number] - MG Performed By: #### L 500.4050, L501.9985, L501.5200, L100.0100, L500.4100 #### [facility] [address] [place], [address] AST [Catalytic activity/Vol] 22 U/L Normal 15-37 [facility] Comment on above: Order Comment: Order Date: 02/23/24 Order Info: [id number] - CMP Order Info: [id number] - LIPID Order Info: [id number] - MG Performed By: #### L 500.4050, L501.9985, L501.5200, L100.0100, L500.4100 #### [facility] [address] [place], [address] Bilirubin [Mass/Vol] 0.50 mg/dL Normal 0.20-1.[address] [facility] Comment on above: Order Comment: Order Date: 02/23/24 Order Info: 86-1 - CMP Order Info: [id number] - LIPID Order Info: [id number] - MG Result Comment: For patients on eltrombopag therapy, use of Dimension [place] TBIL is not recommended. Performed By: #### L 500.4050, L501.9985, L501.5200, L100.0100, L500.4100 #### [facility] [address] [place], [address] BUN/CRE 16.0 RATIO Normal 10-20 [facility] Comment on above: Order Comment: Order Date: 02/23/24 Order Info: [id number] - CMP Order Info: [id number] - LIPID Order Info: [id number] - MG Performed By: #### L 500.4050, L501.9985, L501.5200, L100.0100, L500.4100 #### [facility] [address] [place], [address] CA,Total 9.2 mg/dL Normal 8.5-10.1 [facility] Comment on above: Order Comment: Order Date: 02/23/24 Order Info: [id number] - CMP Order Info: [id number] - LIPID Order Info: [id number] - MG Performed By: #### L 500.4050, L501.9985, L501.5200, L100.0100, L500.4100 #### [facility] [address] [place], [address] Chloride [Moles/Vol] 104 mmol/L Normal 98-[address] [facility] Comment on above: Order Comment: Order Date: 02/23/24 Order Info: 0786 - CMP Order Info: [id number] - LIPID Order Info: [id number] - MG Performed By: #### L 500.4050, L501.9985, L501.5200, L100.0100, L500.4100 #### [facility] [address] [place], [address] CO2 [Moles/Vol] 28.0 mmol/L Normal 21.0-32.0 [facility] Comment on above: Order Comment: Order Date: 02/23/24 Order Info: [id number] - CMP Order Info: [id number] - LIPID Order Info: [id number] - MG Performed By: #### L 500.4050, L501.9985, L501.5200, L100.0100, L500.4100 #### [facility] [address] [place], [address] Creatinine [Mass/Vol] 1.06 mg/dL Normal 0.70-1.30 [facility] Comment on above: Order Comment: Order Date: 02/23/24 Order Info: [id number] - CMP Order Info: [id number] - LIPID Order Info: [id number] - MG Result Comment: The validity of the calculated GFR GFRAA in patients over 70 years has not been determined. Clinical correlation is essential. Performed By: #### L 500.4050, L501.9985, L501.5200, L100.0100, L500.4100 #### [facility] [address] [place], [address] EST GFR - AA 90 mL/min Normal >60 [facility] Comment on above: Order Comment: Order Date: 02/23/24 Order Info: [id number] - CMP Order Info: [id number] - LIPID Order Info: [id number] - MG Result Comment: Afri can Croatian GFR Calc Performed By: #### L 500.4050, L501.9985, L501.5200, L100.0100, L500.4100 #### [facility] [address] [place], [place], [address] GAP 5 Normal 5-15 [facility] Comment on above: Order Comment: Order Date: 02/23/24 Order Info: [id number] - CMP Order Info: [id number] - LIPID Order Info: [id number] - MG Performed By: #### L 500.4050, L501.9985, L501.5200, L100.0100, L500.4100 #### [facility] [address] [place], [place], [address] GFR/1.73 sq M.predicted among non-blacks MDRD (S/P/Bld) [Vol rate/Area] 75 mL/min/{1.73_m2} Normal >60 [facility] Comment on above: Order Comment: Order Date: 02/23/24 Order Info: [id number] - CMP Order Info: [id number] - LIPID Order Info: [id number] - MG Result Comment: Non- GFR Calc Performed By: #### L 500.4050, L501.9985, L501.5200, L100.0100, L500.4100 #### [facility] [address] [place], [address] Globulin (S) [Mass/Vol] 3.7 g/dL Normal 2.2-4.2 [facility] Comment on above: Order Comment: Order Date: 02/23/24 Order Info: [id number] - CMP Order Info: [id number] - LIPID Order Info: [id number] - MG Performed By: #### L 500.4050, L501.9985, L501.5200, L100.0100, L500.4100 #### [facility] [address] [place], [address] Glucose [Mass/Vol] 102 mg/dL Normal 74-106 [facility] Comment on above: Order Comment: Order Date: 02/23/24 Order Info: 07-1 - CMP Order Info: [id number] - LIPID Order Info: [id number] - MG Result Comment: Fast ing Glucose result from 100 to 125 mg/dL suggests IMPAIRED HOMEOSTASIS per A.D.A. criteria. Performed By: #### L 500.4050, L501.9985, L501.5200, L100.0100, L500.4100 #### [facility] [address] [place], [address] Potassium [Moles/Vol] 3.8 mmol/L Normal 3.5-5.1 [facility] Comment on above: Order Comment: Order Date: 02/23/24 Order Info: [id number] - CMP Order Info: [id number] - LIPID Order Info: [id number] - MG Performed By: #### L 500.4050, L501.9985, L501.5200, L100.0100, L500.4100 #### [facility] [address] [place], [address] Sodium [Moles/Vol] 136 mmol/L Normal 136-145 [facility] Comment on above: Order Comment: Order Date: 02/23/24 Order Info: [id number] - CMP Order Info: [id number] - LIPID Order Info: [id number] - MG Performed By: #### L 500.4050, L501.9985, L501.5200, L100.0100, L500.4100 #### [facility] [address] [place], [address] T PROT 7.5 g/dL Normal 6.4-8.2 [facility] Comment on above: Order Comment: Order Date: 02/23/24 Order Info: [id number] - CMP Order Info: [id number] - LIPID Order Info: [id number] - MG Performed By: #### L 500.4050, L501.9985, L501.5200, L100.0100, L500.4100 #### [facility] [address] [place], [address] Urea nitrogen [Mass/Vol] 17 mg/dL Normal 7-18 [facility] Comment on above: Order Comment: Order Date: 02/23/24 Order Info: [id number] - CMP Order Info: [id number] - LIPID Order Info: [id number] - MG Performed By: #### L 500.4050, L501.9985, L501.5200, L100.0100, L500.4100 #### [facility] [address] [place], [address] Hemoglobin A1con 02-23-2024 HbA1c (Bld) [Mass fraction] 5.8 % High 3.8-5.6 [facility] Comment on above: Order Comment: Order Date: 02/23/24 Order Info: [id number] - A1C Result Comment: Norm al < 5.7 % Prediabetic 5.7 - 6.4 % Diabetic >or= 6.5 % Please note range changes. Performed By: #### L 500.4050, L501.9985, L501.5200, L100.0100, L500.4100 #### [facility] [address] [place], [address] Lipid Profileon 01-07-2025 Cholesterol [Mass/Vol] 178 mg/dL Normal 200 [facility] Comment on above: Order Comment: Order Date: 02/23/24 Order Info: [id number] - CMP Order Info: [id number] - LIPID Order Info: [id number] - MG Result Comment: <200 mg/dL Desirable 200-240 mg/dL Borderline >240 mg/dL High Risk Performed By: #### L 500.4050, L501.9985, L501.5200, L100.0100, L500.4100 #### [facility] [address] [place], [address] Cholesterol in HDL [Mass/Vol] 51 mg/dL Normal [facility] Comment on above: Order Comment: Order Date: 02/23/24 Order Info: 07- - CMP Order Info: [id number] - LIPID Order Info: [id number] - MG Result Comment: The drugs N-Acetylcysteine and Metamizole may falsely depress this assay. Reference Range HDL <40 mg/dL Low HDL Cholesterol HDL >or= 60 mg/dL High HDL Cholesterol Performed By: #### L 500.4050, L501.9985, L501.5200, L100.0100, L500.4100 #### [facility] [address] [place], [address] Cholesterol in LDL [Mass/Vol] 104 mg/dL Normal 0-130 [facility] Comment on above: Order Comment: Order Date: 02/23/24 Order Info: [id number] - CMP Order Info: [id number] - LIPID Order Info: [id number] - MG Performed By: #### L 500.4050, L501.9985, L501.5200, L100.0100, L500.4100 #### [facility] [address] [place], [address] Cholesterol in VLDL [Mass/Vol] 23 mg/dL Normal 5-40 [facility] Comment on above: Order Comment: Order Date: 02/23/24 Order Info: [id number] - CMP Order Info: [id number] - LIPID Order Info: [id number] - MG Performed By: #### L 500.4050, L501.9985, L501.5200, L100.0100, L500.4100 #### [facility] [address] [place], [address] Triglyceride [Mass/Vol] 117 mg/dL Normal [facility] Comment on above: Order Comment: Order Date: 02/23/24 Order Info: [id number] - CMP Order Info: [id number] - LIPID Order Info: [id number] - MG Result Comment: The drugs N-Acetylcysteine and Metamizole may falsely depress this assay. Serum Triglycerides Reference Interval Normal <150 mg/dL Borderline high 150 - 199 mg/dL High 200 - 499 mg/dL Very High > or = 500 mg/dL Performed By: #### L 500.4050, L501.9985, L501.5200, L100.0100, L500.4100 #### [facility] [address] [place], [address] Magnesiumon 02-23-2024 Magnesium [Mass/Vol] 2.2 mg/dL Normal 1.6-2.[address] [facility] Comment on above: Order Comment: Order Date: 02/23/24 Order Info: [id number] - CMP Order Info: [id number] - LIPID Order Info: - MG Performed By: #### L 500.4050, L501.9985, L501.5200, L100.0100, L500.4100 #### [facility] [address] [place], [address] Urinalysis, Completeon 02-22 BACTERIA 0 SEEN Normal None Seen [facility] Comment on above: Order Comment: CLEAN CATCH Performed By: #### L 400.0001 ####[facility] [address] [place], [address] EPI,SQUAMOUS 0 SEEN Normal 0-5 [facility] Comment on above: Order Comment: CLEAN CATCH Performed By: #### L 400.0001 ####[facility] [address] [place], [address] Mucus Ql (Urine sed) 0 SEEN Normal [facility] Comment on above: Order Comment: CLEAN CATCH Performed By: #### L 400.0001 ####[facility] [address] [place], [address] RBC 0 SEEN Normal 0-5 [facility] Comment on above: Order Comment: CLEAN CATCH Performed By: #### L 400.0001 ####[facility] [address] [place], [address] WBC 0 SEEN Normal 0-5 [facility] Comment on above: Order Comment: CLEAN CATCH Performed By: #### L 400.0001 ####[facility] [address] [place], [address] PSA Total+%Freeon 10-06-2023 PSA, FREE 0.52 ng/mL Normal N/A [facility] Comment on above: Result Comment: Veronica ríos ECLIA methodology. Performed By: #### L 3110.0500, L501.9940 ####[facility] [address] [place], [address] PSA, FREE % 17.3 Normal . [facility] Comment on above: Result Comment: The table below lists the probability of prostate cancer for men with non-suspicious CHARU results and total PSA between 4 and 10 ng/mL, by patient age (Addie et al, DELGADO 1998, 279:1542). % Free PSA 50-64 yr 65-75 yr 0.00-10.00% 56% 55% 10.01-15.00% 24% 35% 15.01-20.00% 17% 23% 20.01-25.00% 10% 20% >25.00% 5% 9% Please note: Addie et al did not make specific recommendations regarding the use of percent free PSA for any other population of men. Performed at: [address] [id number] Commercial Engineer: Ron Lobo PhD, Phone: [phone] Performed By: #### L 3110.0500, L501.9940 ####[facility] [address] [place], [place], [address] PSA, TOTAL ULTR 3.010 ng/mL Normal 0.000-4.00 0 [facility] Comment on above: Result Comment: Veronica ríos ECLIA methodology. According to the [employer], Serum PSA should decrease and remain at undetectable levels after radical prostatectomy. The AUA defines biochemical recurrence as an initial PSA value 0.200 ng/mL or greater followed by a subsequent confirmatory PSA value 0.200 ng/mL or greater. Values obtained with different assay methods or kits cannot be used interchangeably. Results cannot be interpreted as absolute evidence of the presence or absence of malignant disease. Performed By: #### L 3110.0500, L501.9940 ####[facility] [address] [place], [place], [address] PSA,Total- Diagnosticon 09-16 PSA, DIAGNOSTIC 3.41 ng/mL Normal 0.0-4.0 [facility] Comment on above: Result Comment: This test was performed using the TPSA assay method for the [employer] chemistry system. Values obtained with different assay methods cannot be used interchangably. When changing PSA assays in the course of monitoring a patient, additional sequential testing should be carried out to confirm baseline values. Performed By: #### L 3110.0500, L501.9940 ####[facility] [address] [place], [place], [address] Comprehensive Metabolic Prof ilon 08-26-2023 Albumin [Mass/Vol] 4.0 g/dL Normal 3.2-5.0 [facility] Comment on above: Order Comment: Order Date: 08/26/23Order Info: [id number] - CMPOrder Info: [id number] - LIPIDOrder Info: [id number] - MGOrder Info: [id number] - TSHOrder Info: [id number] - PSA Performed By: #### L 501.9520, L501.5200, L500.4050, L500.4100, L501.9910, L501.9985 ####[facility] [address] [place], [address] Albumin/Globulin [Mass ratio] 1.1 {ratio} Normal 0.9-2.4 [facility] Comment on above: Order Comment: Order Date: 08/26/23Order Info: 86-1 - CMPOrder Info: [id number] - LIPIDOrder Info: [id number] - MGOrder Info: [id number] - TSHOrder Info: [id number] - PSA Performed By: #### L 501.9520, L501.5200, L500.4050, L500.4100, L501.9910, L501.9985 ####[facility] [address] [place], [address] ALK P 59 U/L Normal 45-117 [facility] Comment on above: Order Comment: Order Date: 08/26/23Order Info: 785- - CMPOrder Info: [id number] - LIPIDOrder Info: [id number] - MGOrder Info: 3 - TSHOrder Info: [id number] - PSA Performed By: #### L 501.9520, L501.5200, L500.4050, L500.4100, L501.9910, L501.9985 ####[facility] [address] [place], [address] ALT [Catalytic activity/Vol] 28 U/L Normal 16-61 [facility] Comment on above: Order Comment: Order Date: 08/26/23Order Info: [id number] - CMPOrder Info: [id number] - LIPIDOrder Info: [id number] - MGOrder Info: 3 - TSHOrder Info: [id number] - PSA Performed By: #### L 501.9520, L501.5200, L500.4050, L500.4100, L501.9910, L501.9985 ####[facility] [address] [place], [address] AST [Catalytic activity/Vol] 19 U/L Normal 15-37 [facility] Comment on above: Order Comment: Order Date: 08/26/23Order Info: 86-1 - CMPOrder Info: [id number] - LIPIDOrder Info: [id number] - MGOrder Info: [id number] - TSHOrder Info: [id number] - PSA Performed By: #### L 501.9520, L501.5200, L500.4050, L500.4100, L501.9910, L501.9985 ####[facility] [address] [place], [address] Bilirubin [Mass/Vol] 0.80 mg/dL Normal 0.20-1.[address] [facility] Comment on above: Order Comment: Order Date: 08/26/23Order Info: [id number] - CMPOrder Info: [id number] - LIPIDOrder Info: [id number] - MGOrder Info: 3 - TSHOrder Info: 285-1 - PSA Result Comment: For patients on eltrombopag therapy, use of Dimension Coolspring TBIL is not recommended. Performed By: #### L 501.9520, L501.5200, L500.4050, L500.4100, L501.9910, L501.9985 ####[facility] [address] [place], [address] BUN/CRE 16.3 RATIO Normal 10-20 [facility] Comment on above: Order Comment: Order Date: 08/26/23Order Info: [id number] - CMPOrder Info: [id number] - LIPIDOrder Info: [id number] - MGOrder Info: [id number] - TSHOrder Info: [id number] - PSA Performed By: #### L 501.9520, L501.5200, L500.4050, L500.4100, L501.9910, L501.9985 ####[facility] [address] [place], [address] CA,Total 9.6 mg/dL Normal 8.5-10.1 [facility] Comment on above: Order Comment: Order Date: 08/26/23Order Info: 785- - CMPOrder Info: [id number] - LIPIDOrder Info: [id number] - MGOrder Info: 3 - TSHOrder Info: 1 - PSA Performed By: #### L 501.9520, L501.5200, L500.4050, L500.4100, L501.9910, L501.9985 ####[facility] [address] [place], [address] Chloride [Moles/Vol] 104 mmol/L Normal 98-[address] [facility] Comment on above: Order Comment: Order Date: 08/26/23Order Info: [id number] - CMPOrder Info: - LIPIDOrder Info: [id number] - MGOrder Info: [id number] - TSHOrder Info: [id number] - PSA Performed By: #### L 501.9520, L501.5200, L500.4050, L500.4100, L501.9910, L501.9985 ####[facility] [address] [place], [address] CO2 [Moles/Vol] 25.0 mmol/L Normal 21.0-32.0 [facility] Comment on above: Order Comment: Order Date: 08/26/23Order Info: [id number] - CMPOrder Info: - LIPIDOrder Info: [id number] - MGOrder Info: 3 - TSHOrder Info: [id number] - PSA Performed By: #### L 501.9520, L501.5200, L500.4050, L500.4100, L501.9910, L501.9985 ####[facility] [address] [place], [address] Creatinine [Mass/Vol] 1.04 mg/dL Normal 0.70-1.30 [facility] Comment on above: Order Comment: Order Date: 08/26/23Order Info: [id number]- - CMPOrder Info: [id number] - LIPIDOrder Info: [id number] - MGOrder Info: 63 - TSHOrder Info: [id number] - PSA Result Comment: The validity of the calculated GFR GFRAA in patients over 70 years has not been determined. Clinical correlation is essential. Performed By: #### L 501.9520, L501.5200, L500.4050, L500.4100, L501.9910, L501.9985 ####[facility] [address] [place], [address] EST GFR - AA 93 mL/min Normal >60 [facility] Comment on above: Order Comment: Order Date: 08/26/23Order Info: [id number]- - CMPOrder Info: [id number] - LIPIDOrder Info: [id number] - MGOrder Info: 3 - TSHOrder Info: 285-1 - PSA Result Comment: Afri can [place] GFR Calc Performed By: #### L 501.9520, L501.5200, L500.4050, L500.4100, L501.9910, L501.9985 ####[facility] [address] [place], [place], [id number] GAP 7 Normal 5-15 [facility] Comment on above: Order Comment: Order Date: 08/26/23Order Info: [id number] - CMPOrder Info: - LIPIDOrder Info: [id number] - MGOrder Info: 3 - TSHOrder Info: 2851 - PSA Performed By: #### L 501.9520, L501.5200, L500.4050, L500.4100, L501.9910, L501.9985 ####[facility] [address] [place], [place], [id number](484) GFR/1.73 sq M.predicted among non-blacks MDRD (S/P/Bld) [Vol rate/Area] 77 mL/min/{1.73_m2} Normal >60 [facility] Comment on above: Order Comment: Order Date: 08/26/23Order Info: [id number] - CMPOrder Info: [id number] - LIPIDOrder Info: [id number] - MGOrder Info: 3 - TSHOrder Info: 2851 - PSA Result Comment: Non- GFR Calc Performed By: #### L 501.9520, L501.5200, L500.4050, L500.4100, L501.9910, L501.9985 ####[facility] [address] [place], [address] Globulin (S) [Mass/Vol] 3.6 g/dL Normal 2.2-4.2 [facility] Comment on above: Order Comment: Order Date: 08/26/23Order Info: [id number]- - CMPOrder Info: [id number] - LIPIDOrder Info: [id number] - MGOrder Info: 3 - TSHOrder Info: [id number] - PSA Performed By: #### L 501.9520, L501.5200, L500.4050, L500.4100, L501.9910, L501.9985 ####[facility] [address] [place], [address] Glucose [Mass/Vol] 103 mg/dL Normal 74-106 [facility] Comment on above: Order Comment: Order Date: 08/26/23Order Info: [id number] - CMPOrder Info: [id number] - LIPIDOrder Info: [id number] - MGOrder Info: 3 - TSHOrder Info: 2856- - PSA Result Comment: Fast ing Glucose result from 100 to 125 mg/dL suggests IMPAIRED HOMEOSTASIS per A.D.A. criteria. Performed By: #### L 501.9520, L501.5200, L500.4050, L500.4100, L501.9910, L501.9985 ####[facility] [address] [place], [address] Potassium [Moles/Vol] 4.0 mmol/L Normal 3.5-5.1 [facility] Comment on above: Order Comment: Order Date: 08/26/23Order Info: 86-1 - CMPOrder Info: [id number] - LIPIDOrder Info: [id number] - MGOrder Info: [id number] - TSHOrder Info: [id number] - PSA Performed By: #### L 501.9520, L501.5200, L500.4050, L500.4100, L501.9910, L501.9985 ####[facility] [address] [place], [address] Sodium [Moles/Vol] 136 mmol/L Normal 136-145 [facility] Comment on above: Order Comment: Order Date: 08/26/23Order Info: 86-1 - CMPOrder Info: [id number] - LIPIDOrder Info: [id number] - MGOrder Info: 3 - TSHOrder Info: [id number] - PSA Performed By: #### L 501.9520, L501.5200, L500.4050, L500.4100, L501.9910, L501.9985 ####[facility] [address] [place], [address] T PROT 7.6 g/dL Normal 6.4-8.2 [facility] Comment on above: Order Comment: Order Date: 08/26/23Order Info: 86-1 - CMPOrder Info: [id number] - LIPIDOrder Info: [id number] - MGOrder Info: 3 - TSHOrder Info: [id number] - PSA Performed By: #### L 501.9520, L501.5200, L500.4050, L500.4100, L501.9910, L501.9985 ####[facility] [address] [place], [address] Urea nitrogen [Mass/Vol] 17 mg/dL Normal 7-18 [facility] Comment on above: Order Comment: Order Date: 08/26/23Order Info: 86-1 - CMPOrder Info: [id number] - LIPIDOrder Info: [id number] - MGOrder Info: [id number] - TSHOrder Info: [id number] - PSA Performed By: #### L 501.9520, L501.5200, L500.4050, L500.4100, L501.9910, L501.9985 ####[facility] [address] [place], [address] Hemoglobin A1con 08-26-2023 HbA1c (Bld) [Mass fraction] 5.6 % Normal 3.8-5.6 [facility] Comment on above: Order Comment: Order Date: 08/26/23Order Info: [id number] - A1C Result Comment: Norm al < 5.7 % Prediabetic 5.7 - 6.4 % Diabetic >or= 6.5 % Please note range changes. Performed By: #### L 501.9520, L501.5200, L500.4050, L500.4100, L501.9910, L501.9985 ####[facility] [address] [place], [address] Lipid Profileon 08-26-2023 Cholesterol [Mass/Vol] 191 mg/dL Normal 200 [facility] Comment on above: Order Comment: Order Date: 08/26/23Order Info: [id number] - CMPOrder Info: [id number] - LIPIDOrder Info: [id number] - MGOrder Info: 3 - TSHOrder Info: [id number] - PSA Result Comment: <200 mg/dL Desirable 200-240 mg/dL Borderline >240 mg/dL High Risk Performed By: #### L 501.9520, L501.5200, L500.4050, L500.4100, L501.9910, L501.9985 ####[facility] [address] [place], [place], [id number] Cholesterol in HDL [Mass/Vol] 53 mg/dL Normal [facility] Comment on above: Order Comment: Order Date: 08/26/23Order Info: [id number] - CMPOrder Info: [id number] - LIPIDOrder Info: [id number] - MGOrder Info: [id number] - TSHOrder Info: [id number] - PSA Result Comment: The drugs N-Acetylcysteine and Metamizole may falsely depress this assay. Reference Range HDL <40 mg/dL Low HDL Cholesterol HDL >or= 60 mg/dL High HDL Cholesterol Performed By: #### L 501.9520, L501.5200, L500.4050, L500.4100, L501.9910, L501.9985 ####[facility] [address] [place], [address] Cholesterol in LDL [Mass/Vol] 113 mg/dL Normal 0-130 [facility] Comment on above: Order Comment: Order Date: 08/26/23Order Info: [id number]- - CMPOrder Info: [id number] - LIPIDOrder Info: [id number] - MGOrder Info: [id number] - TSHOrder Info: [id number] - PSA Performed By: #### L 501.9520, L501.5200, L500.4050, L500.4100, L501.9910, L501.9985 ####[facility] [address] [place], [address] Cholesterol in VLDL [Mass/Vol] 25 mg/dL Normal 5-40 [facility] Comment on above: Order Comment: Order Date: 08/26/23Order Info: [id number]- - CMPOrder Info: [id number] - LIPIDOrder Info: [id number] - MGOrder Info: [id number] - TSHOrder Info: [id number] - PSA Performed By: #### L 501.9520, L501.5200, L500.4050, L500.4100, L501.9910, L501.9985 ####[facility] [address] [place], [address] Triglyceride [Mass/Vol] 127 mg/dL Normal [facility] Comment on above: Order Comment: Order Date: 08/26/23Order Info: [id number] - CMPOrder Info: [id number] - LIPIDOrder Info: [id number] - MGOrder Info: [id number] - TSHOrder Info: [id number] - PSA Result Comment: The drugs N-Acetylcysteine and Metamizole may falsely depress this assay. Serum Triglycerides Reference Interval Normal <150 mg/dL Borderline high 150 - 199 mg/dL High 200 - 499 mg/dL Very High > or = 500 mg/dL Performed By: #### L 501.9520, L501.5200, L500.4050, L500.4100, L501.9910, L501.9985 ####[facility] [address] [place], [place], [address] Magnesiumon 08-26-2023 Magnesium [Mass/Vol] 2.3 mg/dL Normal 1.6-2.[address] [facility] Comment on above: Order Comment: Order Date: 08/26/23Order Info: [id number] - CMPOrder Info: [id number] - LIPIDOrder Info: [id number] - MGOrder Info: [id number] - TSHOrder Info: [id number] - PSA Performed By: #### L 501.9520, L501.5200, L500.4050, L500.4100, L501.9910, L501.9985 ####[facility] [address] [place], [place], [address] PSA,Total - Annual Screenon 08-26-2023 PSA,TOT SCREEN 5.31 ng/mL High 0.00-4.00 [facility] Comment on above: Order Comment: Order Date: 08/26/23Order Info: [id number] - CMPOrder Info: [id number] - LIPIDOrder Info: [id number] - MGOrder Info: [id number] - TSHOrder Info: [id number] - PSA Result Comment: This test was performed using the TPSA assay method for the [employer] chemistry system. Values obtained with different assay methods cannot be used interchangably. When changing PSA assays in the course of monitoring a patient, additional sequential testing should be carried out to confirm baseline values. Performed By: #### L 501.9520, L501.5200, L500.4050, L500.4100, L501.9910, L501.9985 ####[facility] [address] [facility] [address] [place], [place], [address] Thyroid Stim Hormone (TSH)on 08-26-2023 TSH 2.83 uIU/mL Normal 0.358-3.74 [facility] Comment on above: Order Comment: Order Date: 08/26/23Order Info: [id number] - CMPOrder Info: [id number] - LIPIDOrder Info: [id number] - MGOrder Info: [id number] - TSHOrder Info: [id number] - PSA Performed By: #### L 501.9520, L501.5200, L500.4050, L500.4100, L501.9910, L501.9985 ####[facility] [address] [facility] [address] [place], [place], [id number] Absolute lymphocyte countOrd ered By: Dr. Rodriges on 07-29-2022 Lymphocytes Auto (Unsp spec) [#/Vol] 1.71 10*3/uL 0.83-4.51 [facility] Basophil percentageOrdered B y: Dr. Rodriges on 07-29-2022 Basophils/100 WBC (Bld) 0.9 % 0-1 [facility] Bilirubin [Mass/Vol] 0.60 mg/dL 0.20-1.[address] [facility] Comment on above: For patients on eltr ombopag therapy, use of Dimension Coolspring TBIL is not recommended. Chloride [Moles/Vol] 107 mmol/L 98-[address] [facility] Eosinophils/100 WBC (Bld) 4.2 % 0-5 [facility] Glucose [Mass/Vol] 122 mg/dL 74-106 [facility] Comment on above: Fasting Glucose resu lt from 100 to 125 mg/dL suggests IMPAIRED HOMEOSTASIS per A.D.A. criteria. Neutrophils (Bld) [#/Vol] 3.9 10*3/uL 2.0-7.7 [facility] Neutrophils/100 WBC (Bld) 60.5 % 47-70 [facility] Potassium [Moles/Vol] 4.0 mmol/L 3.5-5.1 [facility] Protein [Mass/Vol] 7.3 g/dL 6.4-8.2 [facility] Sodium [Moles/Vol] 138 mmol/L 136-145 [facility] WBC (Bld) [#/Vol] 6.5 10*3/uL 4.4-11.0 [facility] Blood erythrocytes count (nu mber/volume)Ordered By: Dr. Rodriges on 07-29-2022 RBC (Bld) [#/Vol] 5.05 10*6/uL 4.6-6.2 [facility] Blood hemoglobin measurement (mass/volume)Ordered By: Dr. Rodriges on 07-29-2022 Hemoglobin (Bld) [Mass/Vol] 14.6 g/dL 13.0-16.5 [facility] Blood lymphocytes/100 leukoc ytesOrdered By: Dr. Rodriges on 07-29-2022 Lymphocytes/100 WBC (Bld) 26.5 % 19-41 [facility] Blood monocytes/100 leukocyt esOrdered By: Dr. Rodriges on 07-29-2022 Monocytes/100 WBC (Bld) 7.6 % 0-10 [facility] Blood platelet mean volumeOr dered By: Dr. Rodriges on 07-29-2022 Platelet mean volume (Bld) [Entitic vol] 9.8 fL 6.2-12.0 [facility] Determination of erythrocyte mean corpuscular volume (MCV)Ordered By: Dr. Rodriges on 07-29-2022 MCV (RBC) [Entitic vol] 91.9 fL 80-94 [facility] Hematocrit Auto (Bld) [Volum e fraction]Ordered By: Dr. Rodriges on 07-29-2022 Hematocrit (Bld) [Volume fraction] 46.4 % 40-54 [facility] - Chemistry and C hemistry - challengeOrdered By: Dr. Rodirges on 07-29-2022 ALP [Catalytic activity/Vol] 57 U/L 45-117 [facility] ALT [Catalytic activity/Vol] 30 U/L 16-61 [facility] CO2 [Moles/Vol] 25.0 mmol/L 21.0-32.0 [facility] Globulin (S) [Mass/Vol] 3.4 g/dL 2.2-4.2 [facility] Urea nitrogen/Creatinine [Mass ratio] 15.6 mg/mg 10-20 [facility] - Hematology and Cell countsOrdered By: Dr. Rodriges on 07-29-2022 Erythrocyte distribution width (RBC) [Entitic vol] 45.1 fL 35.1-43.9 [facility] Erythrocyte distribution width (RBC) [Ratio] 13.3 % 11.6-14.6 [facility] Immature granulocytes/100 WBC (Bld) 0.300 % 0.0-0.9 [facility] Comment on above: IG% - Immature Granu locytes (promyelocytes, myelocytes and metamyelocytes) > 1% indicates that a LEFT SHIFT is Present. MCH (RBC) [Entitic mass] 28.9 pg 27.0-32.0 [facility] Nucleated RBC/100 WBC (Bld) [Ratio] 0 % 0-5 [facility] MCHC Auto (RBC) [Mass/Vol]Or dered By: Dr. Rodriges on 07-29-2022 MCHC (RBC) [Mass/Vol] 31.5 g/dL 32-36 [facility] No Panel InformationOrdered By: Dr. Rodriges on 07-29-2022 Estimated GFR (MDRD) Amer 101 mL/min >60 [facility] Comment on above: GFR Calc Estimated GFR (MDRD) Non-Af Amer 84 mL/min >60 [facility] Comment on above: Non- GFR Calc Prostate Specific Antigen Screen 3.76 ng/mL 0.00-4.00 [facility] Comment on above: This test was perfor med using the TPSA assay method for the[facility] system. Values obtained with differentassay methods cannot be used interchangably.When changing PSA assays in the course of monitoring apatient, additional sequential testing should be carriedout to confirm baseline values. Platelets bldOrdered By: Dr. Rodriges on 07-29-2022 Platelets (Bld) [#/Vol] 286 10*3/uL 150-450 [facility] Serum or plasma albumin floyd urement (mass/volume)Ordered By: Dr. Rodriges on 07-29-2022 Albumin [Mass/Vol] 3.9 g/dL 3.2-5.0 [facility] Serum or plasma albumin/glob ulin mass ratioOrdered By: Dr. Rodriges on 07-29-2022 Albumin/Globulin [Mass ratio] 1.1 {ratio} 0.9-2.4 [facility] Serum or plasma calcium floyd urement (mass/volume)Ordered By: Dr. Rodriges on 07-29-2022 Calcium [Mass/Vol] 9.1 mg/dL 8.5-10.1 [facility] Serum or plasma creatinine m easurement (mass/volume)Ordered By: Dr. Rodriges on 07-29-2022 Creatinine [Mass/Vol] 0.96 mg/dL 0.70-1.30 [facility] Comment on above: The validity of the calculated GFR & GFRAA in patients over 70 years has not been determined. Clinical correlation is essential. Serum or plasma urea nitroge n measurement (mass/volume)Ordered By: Dr. Rodriges on 07-29-2022 Urea nitrogen [Mass/Vol] 15 mg/dL 7-18 [facility] Thin prep Papanicolaou smear with manual screeningOrdered By: Dr. Rdoriges on 07-29-2022 Thin prep Papanicolaou smear with manual screening 23 U/L 15-37 [facility] Thin prep Papanicolaou smear with manual screening 6 5-15 [facility] Whole blood hemoglobin A1c/t otal hemoglobin ratio (mass fraction)Ordered By: Dr. Rodriges on 07-29-2022 HbA1c (Bld) [Mass fraction] 5.9 % 3.8-5.6 [facility] Comment on above: Normal < 5.7 % Predi abetic 5.7 - 6.4 % Diabetic >or= 6.5 % Please note range changes. Absolute lymphocyte countOrd ered By: Dr. Rodriges on 04-25-2022 Lymphocytes Auto (Unsp spec) [#/Vol] 1.83 10*3/uL 0.83-4.51 [facility] Basophil percentageOrdered B y: Dr. Rodriges on 04-25-2022 Basophils/100 WBC (Bld) 0.9 % 0-1 [facility] Bilirubin [Mass/Vol] 0.50 mg/dL 0.20-1.[address] [facility] Comment on above: For patients on eltr ombopag therapy, use of [employer] [place] TBIL is not recommended. Chloride [Moles/Vol] 104 mmol/L 98-[address] [facility] Eosinophils/100 WBC (Bld) 4.5 % 0-5 [facility] Glucose [Mass/Vol] 112 mg/dL 74-106 [facility] Comment on above: Fasting Glucose resu lt from 100 to 125 mg/dL suggests IMPAIRED HOMEOSTASIS per A.D.A. criteria. Neutrophils (Bld) [#/Vol] 3.2 10*3/uL 2.0-7.7 [facility] Neutrophils/100 WBC (Bld) 54.0 % 47-70 [facility] Potassium [Moles/Vol] 4.0 mmol/L 3.5-5.1 [facility] Protein [Mass/Vol] 7.3 g/dL 6.4-8.2 [facility] Sodium [Moles/Vol] 138 mmol/L 136-145 [facility] WBC (Bld) [#/Vol] 5.8 10*3/uL 4.4-11.0 [facility] Blood erythrocytes count (nu mber/volume)Ordered By: Dr. Rodriges on 04-25-2022 RBC (Bld) [#/Vol] 4.66 10*6/uL 4.6-6.2 [facility] Blood hemoglobin measurement (mass/volume)Ordered By: Dr. Rodriges on 04-25-2022 Hemoglobin (Bld) [Mass/Vol] 13.6 g/dL 13.0-16.5 [facility] Blood lymphocytes/100 leukoc ytesOrdered By: Dr. Rodriges on 04-25-2022 Lymphocytes/100 WBC (Bld) 31.4 % 19-41 [facility] Blood monocytes/100 leukocyt esOrdered By: Dr. Rodriges on 04-25-2022 Monocytes/100 WBC (Bld) 8.9 % 0-10 [facility] Blood platelet mean volumeOr dered By: Dr. Rodriges on 04-25-2022 Platelet mean volume (Bld) [Entitic vol] 9.5 fL 6.2-12.0 [facility] Determination of erythrocyte mean corpuscular volume (MCV)Ordered By: Dr. Rodriges on 04-25-2022 MCV (RBC) [Entitic vol] 91.2 fL 80-94 [facility] Hematocrit Auto (Bld) [Volum e fraction]Ordered By: Dr. Rodriges on 04-25-2022 Hematocrit (Bld) [Volume fraction] 42.5 % 40-54 [facility] Laboratory - Chemistry and C hemistry - challengeOrdered By: Dr. Rodriges on 04-25-2022 ALP [Catalytic activity/Vol] 54 U/L 45-117 [facility] ALT [Catalytic activity/Vol] 25 U/L 16-61 [facility] CO2 [Moles/Vol] 26.0 mmol/L 21.0-32.0 [facility] Globulin (S) [Mass/Vol] 3.4 g/dL 2.2-4.2 [facility] Urea nitrogen/Creatinine [Mass ratio] 17.0 mg/mg 10-20 [facility] - Hematology and Cell countsOrdered By: Dr. Rodriges on 04-25-2022 Erythrocyte distribution width (RBC) [Entitic vol] 44.7 fL 35.1-43.9 [facility] Erythrocyte distribution width (RBC) [Ratio] 13.3 % 11.6-14.6 [facility] Immature granulocytes/100 WBC (Bld) 0.300 % 0.0-0.9 [facility] Comment on above: IG% - Immature Granu locytes (promyelocytes, myelocytes and metamyelocytes) > 1% indicates that a LEFT SHIFT is Present. MCH (RBC) [Entitic mass] 29.2 pg 27.0-32.0 [facility] Nucleated RBC/100 WBC (Bld) [Ratio] 0 % 0-5 [facility] MCHC Auto (RBC) [Mass/Vol]Or dered By: Dr. Rodriges on 04-25-2022 MCHC (RBC) [Mass/Vol] 32.0 g/dL 32-36 [facility] No Panel InformationOrdered By: Dr. Rodriges on 04-25-2022 Estimated GFR (MDRD) Amer 97 mL/min >60 [facility] Comment on above: GFR Calc Estimated GFR (MDRD) Non-Af Amer 80 mL/min >60 [facility] Comment on above: Non- GFR Calc Platelets bldOrdered By: Dr. Rodriges on 04-25-2022 Platelets (Bld) [#/Vol] 275 10*3/uL 150-450 [facility] Serum or plasma albumin floyd urement (mass/volume)Ordered By: Dr. Rodriges on 04-25-2022 Albumin [Mass/Vol] 3.9 g/dL 3.2-5.0 [facility] Serum or plasma albumin/glob ulin mass ratioOrdered By: Dr. Rodriges on 04-25-2022 Albumin/Globulin [Mass ratio] 1.1 {ratio} 0.9-2.4 [facility] Serum or plasma calcium floyd urement (mass/volume)Ordered By: Dr. Rodriges on 04-25-2022 Calcium [Mass/Vol] 9.3 mg/dL 8.5-10.1 [facility] Serum or plasma creatinine m easurement (mass/volume)Ordered By: Dr. Rodriges on 04-25-2022 Creatinine [Mass/Vol] 1.00 mg/dL 0.70-1.30 [facility] Comment on above: The validity of the calculated GFR & GFRAA in patients over 70 years has not been determined. Clinical correlation is essential. Serum or plasma urea nitroge n measurement (mass/volume)Ordered By: Dr. Rodriges on 04-25-2022 Urea nitrogen [Mass/Vol] 17 mg/dL 7-18 [facility] Thin prep Papanicolaou smear with manual screeningOrdered By: Dr. Rodriges on 04-25-2022 Thin prep Papanicolaou smear with manual screening 26 U/L 15-37 [facility] Thin prep Papanicolaou smear with manual screening 8 5-15 [facility] Whole blood hemoglobin A1c/t otal hemoglobin ratio (mass fraction)Ordered By: Dr. Rodriges on 04-25-2022 HbA1c (Bld) [Mass fraction] 5.6 % 3.8-5.6 [facility] Comment on above: Normal < 5.7 % Predi abetic 5.7 - 6.4 % Diabetic >or= 6.5 % Please note range changes. Absolute lymphocyte countOrd ered By: Dr. Rodriges on 12-25-2021 Lymphocytes Auto (Unsp spec) [#/Vol] 1.60 10*3/uL 0.83-4.51 [facility] Basophil percentageOrdered B y: Dr. Rodriges on 12-25-2021 Basophil percentage 0 SEEN /hpf 0-[address] [facility] Basophils/100 WBC (Bld) 0.9 % 0-1 [facility] Bilirubin [Mass/Vol] 0.60 mg/dL 0.20-1.[address] [facility] Comment on above: For patients on eltr ombopag therapy, use of [employer] [place] TBIL is not recommended. Chloride [Moles/Vol] 107 mmol/L 98-[address] [facility] Cholesterol [Mass/Vol] 171 mg/dL <200 [facility] Comment on above: <200 mg/dL Desirable 200-240 mg/dL Borderline >240 mg/dL High Risk Eosinophils/100 WBC (Bld) 4.4 % 0-5 [facility] Glucose [Mass/Vol] 100 mg/dL 74-106 [facility] Comment on above: Fasting Glucose resu lt from 100 to 125 mg/dL suggests IMPAIRED HOMEOSTASIS per A.D.A. criteria. Neutrophils (Bld) [#/Vol] 3.9 10*3/uL 2.0-7.7 [facility] Neutrophils/100 WBC (Bld) 62.0 % 47-70 [facility] Potassium [Moles/Vol] 3.9 mmol/L 3.5-5.1 [facility] Protein [Mass/Vol] 7.2 g/dL 6.4-8.2 [facility] Sodium [Moles/Vol] 139 mmol/L 136-145 [facility] Triglyceride [Mass/Vol] 92 mg/dL <199 [facility] Comment on above: The drugs N-Acetylcy steine and Metamizole may falsely depress this assay.Serum Triglycerides Reference Interval Normal <150 mg/dL Borderline high 150 - 199 mg/dL High 200 - 499 mg/dL Very High > or = 500 mg/dL WBC (Bld) [#/Vol] 6.3 10*3/uL 4.4-11.0 [facility] Bilirubin Test strip Ql (U)O rdered By: Dr. Rodriges on 12-25-2021 Bilirubin Ql (U) Negative Negative [facility] Blood erythrocytes count (nu mber/volume)Ordered By: Dr. Rodriges on 12-25-2021 RBC (Bld) [#/Vol] 4.93 10*6/uL 4.6-6.2 [facility] Blood hemoglobin measurement (mass/volume)Ordered By: Dr. Rodriges on 12-25-2021 Hemoglobin (Bld) [Mass/Vol] 14.6 g/dL 13.0-16.5 [facility] Blood lymphocytes/100 leukoc ytesOrdered By: Dr. Rodriges on 12-25-2021 Lymphocytes/100 WBC (Bld) 25.3 % 19-41 [facility] Blood monocytes/100 leukocyt esOrdered By: Dr. Rodriges on 12-25-2021 Monocytes/100 WBC (Bld) 7.1 % 0-10 [facility] Blood platelet mean volumeOr dered By: Dr. Rodriges on 12-25-2021 Platelet mean volume (Bld) [Entitic vol] 9.6 fL 6.2-12.0 [facility] Determination of erythrocyte mean corpuscular volume (MCV)Ordered By: Dr. Rodriges on 12-25-2021 MCV (RBC) [Entitic vol] 92.3 fL 80-94 [facility] Hematocrit Auto (Bld) [Volum e fraction]Ordered By: Dr. Rodriges on 12-25-2021 Hematocrit (Bld) [Volume fraction] 45.5 % 40-54 [facility] Ketones Test strip Ql (U)Ord ered By: Dr. Rodriges on 12-25-2021 Ketones Ql (U) Negative Negative [facility] Laboratory - Chemistry and C hemistry - challengeOrdered By: Dr. Rodriges on 12-25-2021 ALP [Catalytic activity/Vol] 53 U/L 45-117 [facility] ALT [Catalytic activity/Vol] 29 U/L 16-61 [facility] CO2 [Moles/Vol] 25.0 mmol/L 21.0-32.0 [facility] Globulin (S) [Mass/Vol] 3.3 g/dL 2.2-4.2 [facility] Magnesium [Mass/Vol] 2.3 mg/dL 1.6-2.[address] [facility] Urea nitrogen/Creatinine [Mass ratio] 15.0 mg/mg 10-20 [facility] Laboratory - Hematology and Cell countsOrdered By: Dr. Rodriges on 12-25-2021 Erythrocyte distribution width (RBC) [Entitic vol] 45.3 fL 35.1-43.9 [facility] Erythrocyte distribution width (RBC) [Ratio] 13.2 % 11.6-14.6 [facility] Immature granulocytes/100 WBC (Bld) 0.300 % 0.0-0.9 [facility] Comment on above: IG% - Immature Granu locytes (promyelocytes, myelocytes and metamyelocytes) > 1% indicates that a LEFT SHIFT is Present. MCH (RBC) [Entitic mass] 29.6 pg 27.0-32.0 [facility] Nucleated RBC/100 WBC (Bld) [Ratio] 0 % 0-5 [facility] MCHC Auto (RBC) [Mass/Vol]Or dered By: Dr. Rodriges on 12-25-2021 MCHC (RBC) [Mass/Vol] 32.1 g/dL 32-36 [facility] Mucus LM Ql (Urine sed)Order ed By: Dr. Rodriges on 12-25-2021 Mucus Ql (Urine sed) 0 SEEN /hpf [facility] Nitrite Test strip Ql (U)Ord ered By: Dr. Rodriges on 12-25-2021 Nitrite Ql (U) Negative Negative [facility] No Panel InformationOrdered By: Dr. Rodriges on 12-25-2021 Estimated GFR (MDRD) Amer 115 mL/min >60 [facility] Comment on above: GFR Calc Estimated GFR (MDRD) Non-Af Amer 95 mL/min >60 [facility] Comment on above: Non- GFR Calc Thyroid Stimulating Hormone (TSH) 2.97 uIU/mL 0.358-3.74 [facility] Platelets bldOrdered By: Dr. Rodriges on 12-25-2021 Platelets (Bld) [#/Vol] 263 10*3/uL 150-450 [facility] Protein Test strip Ql (U)Ord ered By: Dr. Rodriges on 12-25-2021 Protein Ql (U) Negative Negative [facility] Serum or plasma albumin floyd urement (mass/volume)Ordered By: Dr. Rdoriges on 12-25-2021 Albumin [Mass/Vol] 3.9 g/dL 3.2-5.0 [facility] Serum or plasma albumin/glob ulin mass ratioOrdered By: Dr. Rodriges on 12-25-2021 Albumin/Globulin [Mass ratio] 1.2 {ratio} 0.9-2.4 [facility] Serum or plasma calcium floyd urement (mass/volume)Ordered By: Dr. Rodriges on 12-25-2021 Calcium [Mass/Vol] 8.9 mg/dL 8.5-10.1 [facility] Serum or plasma cholesterol in HDL measurement (mass/volume)Ordered By: Dr. Rodriges on 12-25-2021 Cholesterol in HDL [Mass/Vol] 52 mg/dL >40 [facility] Comment on above: The drugs N-Acetylcy steine and Metamizole may falsely depress this assay. Reference Range HDL <40 mg/dL Low HDL Cholesterol HDL >or= 60 mg/dL High HDL Cholesterol Serum or plasma cholesterol in VLDL measurement (mass/volume)Ordered By: Dr. Rodriges on 12-25-2021 Cholesterol in VLDL [Mass/Vol] 18 mg/dL 5-40 [facility] Serum or plasma creatinine m easurement (mass/volume)Ordered By: Dr. Rodriges on 12-25-2021 Creatinine [Mass/Vol] 0.87 mg/dL 0.70-1.30 [facility] Comment on above: The validity of the calculated GFR & GFRAA in patients over 70 years has not been determined. Clinical correlation is essential. Serum or plasma low density lipoprotein (LDL) cholesterol measurement (mass/volume)Ordered By: Dr. Rodriges on 12-25-2021 Cholesterol in LDL [Mass/Vol] 101 mg/dL 0-130 [facility] Serum or plasma urea nitroge n measurement (mass/volume)Ordered By: Dr. Rodriges on 12-25-2021 Urea nitrogen [Mass/Vol] 13 mg/dL 7-18 [facility] Squamous epithelial cells de tection in urine sediment by light microscopyOrdered By: Dr. Rodriges on 12-25-2021 Epithelial cells.squamous LM Ql (Urine sed) 0 SEEN /hpf 0-5 [facility] Thin prep Papanicolaou smear with manual screeningOrdered By: Dr. Rodriges on 12-25-2021 Thin prep Papanicolaou smear with manual screening 21 U/L 15-37 [facility] Thin prep Papanicolaou smear with manual screening 7 5-15 [facility] Urine blood detectionOrdered By: Dr. Rodriges on 12-25-2021 RBC Ql (U) Negative Negative [facility] RBC Ql (U) 0 SEEN /hpf 0-5 [facility] Urine clarityOrdered By: Dr. Rodriges on 12-25-2021 Clarity (U) Sl. Cloudy Clear [facility] Urine color determinationOrd ered By: Dr. Rodriges on 12-25-2021 Color (U) Yellow Yellow [facility] Urine glucose detectionOrder ed By: Dr. Rodriges on 12-25-2021 Glucose Ql (U) Normal mg/dl Normal [facility] Urine leukocyte esterase det ection by dipstickOrdered By: Dr. Rodriges on 12-25-2021 Leukocyte esterase Test strip Ql (U) Negative Negative [facility] Urine pHOrdered By: Dr. Juventino mar on 12-25-2021 pH (U) 8.0 [pH] 5.0 - 8.0 [facility] Urine sediment bacteria coun t by microscopy (number/high power field)Ordered By: Dr. Rodriges on 12-25-2021 Bacteria LM.HPF (Urine sed) [#/Area] 0 /[HPF] None Seen [facility] Urine specific gravity measu rementOrdered By: Dr. Rodriges on 12-25-2021 Specific gravity (U) [Rel density] 1.015 1.002-1.03 0 [facility] Urobilinogen Auto test strip Ql (U)Ordered By: Dr. Rodriges on 12-25-2021 Urobilinogen Ql (U) Normal mg/dl Normal [facility] Whole blood hemoglobin A1c/t otal hemoglobin ratio (mass fraction)Ordered By: Dr. Rodriges on 12-25-2021 HbA1c (Bld) [Mass fraction] 5.7 % 3.8-5.6 [facility] Comment on above: Normal < 5.7 % Predi abetic 5.7 - 6.4 % Diabetic >or= 6.5 % Please note range changes. Vital Signs Date Time Vital Sign Value Performing Clinician Faci lity 06-18-2024 19:40-0400 Body temperature 98.9 [degF] Dr. Omar Rodriges MD Work Phone: [facility] 06-18-2024 19:40-0400 Diastolic blood pressure 84 mm[Hg] Dr. Omar Rodriges MD Work Phone: [facility] 06-18-2024 19:40-0400 Heart rate 71 /min Dr. Omar Rodriges MD Work Phone: [facility] 06-18-2024 19:40-0400 Respiratory rate 13 /min Dr. Omar Rodriges MD Work Phone: [facility] 06-18-2024 19:40-0400 SaO2% (BldA) [Mass fraction] 99 % Dr. Omar Rodriges MD Work Phone: [facility] 06-18-2024 19:40-0400 Systolic blood pressure 144 mm[Hg] Dr. Omar Rodriges MD Work Phone: [facility] 06-18-2024 16:30-0400 Body height 175.[address] Omar Rodriges MD Work Phone: [facility] 06-18-2024 16:30-0400 Body mass index (BMI) [Ratio] 29.7 kg/m2 Dr. Omar Rodriges MD Work Phone: [facility] 06-18-2024 16:30-0400 Body weight 91.[address] Omar Rodriges MD Work Phone: [facility] 05-18-2024 10:47-0400 Body mass index (BMI) [Ratio] 28.7 kg/m2 Dr. Omar Rodriges MD Work Phone: 1(820)656-[address] [place] [address] 05-18-2024 10:47-0400 Body weight 88.[address] Omar Rodriges MD Work Phone: [facility] 05-18-2024 10:47-0400 Diastolic blood pressure 80 mm[Hg] Dr. Omar Rodriges MD Work Phone: [facility] 05-18-2024 10:47-0400 Heart rate 78 /min Dr. Omar Rodriges MD Work Phone: [facility] 05-18-2024 10:47-0400 Respiratory rate 18 /min Dr. Omar Rodriges MD Work Phone: [phone] [place] [address] 05-18-2024 10:47-0400 SaO2% (BldA) [Mass fraction] 96 % Dr. Omar Rodriges MD Work Phone: [facility] 05-18-2024 10:47-0400 Systolic blood pressure 130 mm[Hg] Dr. Omar Rodriges MD Work Phone: [facility] 08-26-2022 08:00-0400 Body temperature 98.3 [degF] Dr. Omar Rodriges Work Phone: [facility] 08-26-2022 08:00-0400 Diastolic blood pressure 88 mm[Hg] Dr. Omar Rodriges Work Phone: [facility] 08-26-2022 08:00-0400 Heart rate 59 /min Dr. Omar Rodriges Work Phone: [facility] 08-26-2022 08:00-0400 Respiratory rate 18 /min Dr. Omar Rodriges Work Phone: [facility] 08-26-2022 08:00-0400 SaO2% (BldA) [Mass fraction] 100 % Dr. Omar Rodriges Work Phone: [facility] 08-26-2022 08:00-0400 Systolic blood pressure 122 mm[Hg] Dr. Omar Rodriges Work Phone: [facility] 08-26-2022 06:39-0400 Body height 175.[address] Omar Rodriges Work Phone: [facility] 08-26-2022 06:39-0400 Body mass index (BMI) [Ratio] 26.9 kg/m2 Dr. Omar Rodriges Work Phone: [facility] 08-26-2022 06:39-0400 Body weight 82.[address] Omar Rodriges Work Phone: [facility] 07-31-2022 11:54-0400 Body height 175.[address] Omar Rodriges Work Phone: [phone] [address] 07-31-2022 11:54-0400 Body mass index (BMI) [Ratio] 27.3 kg/m2 Dr. Omar Rodriges Work Phone: [phone])[phone] [place] [address] 07-31-2022 11:54-0400 Body weight 83.[address] Omar Rodriges Work Phone: [facility] 04-11-2022 09:15-0500 Body temperature 97.9 [degF] Dr. Omar Rodriges Work Phone: [facility] 04-11-2022 09:15-0500 Diastolic blood pressure 82 mm[Hg] Dr. Omar Rodriges Work Phone: [facility] 04-11-2022 09:15-0500 Heart rate 80 /min Dr. Omar Rodriges Work Phone: [facility] 04-11-2022 09:15-0500 Respiratory rate 16 /min Dr. Omar Rodriges Work Phone: [facility] 04-11-2022 09:15-0500 SaO2% (BldA) [Mass fraction] 99 % Dr. Omar Rodriges Work Phone: [facility] 04-11-2022 09:15-0500 Systolic blood pressure 127 mm[Hg] Dr. Omar Rodriges Work Phone: [facility] 02-11-2022 10:55-0500 Heart rate 70 /min Dr. Omar Rodriges Work Phone: [facility] 02-11-2022 10:55-0500 Respiratory rate 18 /min Dr. Omar Rodriges Work Phone: [facility] 02-11-2022 10:55-0500 SaO2% (BldA) [Mass fraction] 96 % Dr. Omar Rodriges Work Phone: [facility] 02-11-2022 10:22-0500 Body temperature 97 [degF] Dr. Omar Rodriges Work Phone: [facility] 02-11-2022 10:22-0500 Diastolic blood pressure 80 mm[Hg] Dr. Omar Rodriges Work Phone: [facility] 02-11-2022 10:22-0500 Systolic blood pressure 113 mm[Hg] Dr. Omar Rodriges Work Phone: [facility] 02-11-2022 10:15-0500 Inhaled oxygen flow rate 2 L/min Dr. Omar Rodriges Work Phone: [facility] 02-11-2022 08:34-0500 Body height 175.[address] Omar Rodriges Work Phone: [facility] 02-11-2022 08:34-0500 Body mass index (BMI) [Ratio] 28.1 kg/m2 Dr. Omar Rodriges Work Phone: [facility] 02-11-2022 08:34-0500 Body weight 86.[address] Omar Rodriges Work Phone: [facility] 01-23-2022 09:51-0500 Body mass index (BMI) [Ratio] 28.4 kg/m2 Dr. Omar Rodriges Work Phone: [facility] 01-23-2022 09:51-0500 Body temperature 97.2 [degF] Dr. Omar Rodriges Work Phone: [facility] 01-23-2022 09:51-0500 Body weight 87.[address] Omar Rodriges Work Phone: [facility] 01-23-2022 09:51-0500 Diastolic blood pressure 84 mm[Hg] Dr. Omar Rodriges Work Phone: [facility] 01-23-2022 09:51-0500 Heart rate 75 /min Dr. Omar Rodriges Work Phone: [facility] 01-23-2022 09:51-0500 Respiratory rate 17 /min Dr. Omar Rodriges Work Phone: [facility] 01-23-2022 09:51-0500 SaO2% (BldA) [Mass fraction] 98 % Dr. Omar Rodriges Work Phone: [facility] 01-23-2022 09:51-0500 Systolic blood pressure 143 mm[Hg] Dr. Omar Rodriges Work Phone: [facility] 11-19-2021 01:18-0400 Body height 175.26 cm [facility] Work Phone: 11-19-2021 01:18-0400 Body mass index (BMI) [Ratio] 28 kg/m2 [facility] Work Phone: 11-19-2021 01:18-0400 Body temperature 97.2 [degF] [facility] Work Phone: 11-19-2021 01:18-0400 Body weight 86.18 kg [facility] Work Phone: 11-19-2021 01:18-0400 Diastolic blood pressure 119 mm[Hg] [facility] Work Phone: 11-19-2021 01:18-0400 Heart rate 98 /min [facility] Work Phone: 11-19-2021 01:18-0400 Respiratory rate 16 /min [facility] Work Phone: 11-19-2021 01:18-0400 SaO2% (BldA) [Mass fraction] 98 % [facility] Work Phone: 11-19-2021 01: Systolic blood pressure 179 mm[Hg] [facility] Work Phone: Encounters Encounter Date Encounter Type Care Provider Facility Start: 07-06-2024 ambulatory Omar Rodriges Facilit y:[facility] Start: 07-06-2024 Non-patient / Non-visit Dr. Erlin Lynn MD -[facility] Start: 07-06-2024 End: 07-06-[address] Omar Rodriges MD Work Phone: [facility] Work Phone: Start: 07-06-2024 End: 07-06-[address] Omar Rodriges MD -[facility] Work Phone: Start: 07-06-2024 End: 07-06-2024 ambulatory Omar Rodriges Facility:[facility] Start: 06-18-2024 End: 06-18-2024 Emergency department patient visit Dr. Gordo Crespo DO -Emergency Department Work Phone: Start: 05-18-2024 End: 05-18-2024 Patient encounter procedure Alicia SHELBY -[facility] Work Phone: Start: 05-18-2024 End: 05-18-2024 ambulatory Alicia Ovalle Facility[facility] Start: 02-23-2024 End: 02-23-2024 ambulatory Omar Rodriges Facility:[facility] Start: 10-05-2023 End: 10-05-2023 ambulatory Nata Mejia Facility:[facility] Start: 08-26-2023 End: 08-26-2023 ambulatory Omar Rodriges Facility:[facility] Start: 08-26-2022 Non-patient / Non-visit Dr. Omar Rodriges Work Phone: [facility] Start: 08-26-2022 End: 08-26-2022 Admission to same day surgery center Dr. Omar Rodriges Work Phone: [facility] Work Phone: Start: 08-26-2022 End: 08-26-[address] Omar Rodriges Work Phone: [facility] Work Phone: Start: 07-31-2022 Non-patient / Non-visit Dr. Omar Rodriges Work Phone: [facility] Start: 07-29-2022 End: 07-29-[address] Omar Rodriges Work Phone: [facility] Work Phone: Start: 07-29-2022 End: 07-29-[address] Omar Rodriges Work Phone: [facility] Start: 06-19-2022 End: 06-19-[address] Omar Rodriges Work Phone: [facility] Start: 04-25-2022 End: 04-25-[address] Omar Rodriges Work Phone: [facility] Work Phone: Start: 04-25-2022 End: 04-25-[address] Omar Rodriges Work Phone: [facility] Start: 04-11-2022 End: 04-11-2022 Admission to same day surgery center Dr. Omar Rodriges Work Phone: [facility] Start: 04-11-2022 End: 04-11-[address] Omar Rodriges Work Phone: [facility] Work Phone: Start: 02-14-2022 End: 02-14-[address] Omar Rodriges Work Phone: [facility] Start: 02-11-2022 Non-patient / Non-visit Dr. Omar Rodriges Work Phone: [facility] Start: 02-11-2022 End: 02-11-2022 Admission to same day surgery center Dr. Omar Rodriges Work Phone: [facility] Start: 02-11-2022 End: 02-11-[address] Omar Rodriges Work Phone: [facility] Work Phone: Start: 01-23-2022 End: 01-23-[address] Omar Rodriges Work Phone: [facility] Start: 12-25-2021 End: 12-25-2021 ambulatory [facility] Work Phone: Start: 12-25-2021 End: 12-25-2021 Patient encounter procedure [facility] Start: 11-19-2021 End: 11-19-2021 Emergency department patient visit [facility] Procedures Date Procedure Procedure Detail Performing Clinician Start: 06-18-2024 Plain chest X-ray Dr. Omar Rodriges MD Work Phone: Start: 06-18-[address] Omar Rodriges MD Work Phone: Start: 08-26-[address] Omar Rodriges Work Phone: Start: 04-11-[address] Omar Rodriges Work Phone: Start: 02-11-[address] Omar mar Work Phone: H/O: surgery S/P dilatation o f esophageal stricture Dr. Omar Rodriges Work Phone: Plan of Treatment Date Care Activity Detail Author Start: 06-18-2024 [facility] Start: 06-18-2024 [facility] Start: 08-26-2022 Patient discharge [facility] Start: 04-11-2022 Esophageal motility study w/interp&rpt ESOPHAGUS MOTILITY STUDY [facility] Start: 04-11-2022 Patient discharge [facility] Start: 02-11-2022 Egd balloon dilation esophagus <30 mm diam ESOPH EGD DILATION <30 MM [facility] Start: 02-11-2022 Egd transoral biopsy single/multiple EGD BIOPSY SINGLE/MULTIPLE [facility] Start: 02-11-2022 Patient discharge [facility] Colonoscopy [facility] Patient Education [facility] Work Phone: Patient referral [facility] Work Phone: [facility] Immunizations Immunization Date Immunization Notes Care Provider Fa cility 11-19-2021 tetanus toxoid, redu harrison diphtheria toxoid, and acellular pertussis vaccine, adsorbed [facility] Payers Date Payer Category Payer Self-pay 2023 Unknown [id number] Unknown SELF INS [facility] JADIEL BRUSH 3 [id number] Unknown [id number] Unknown [id number] Unknown [id number] Unknown [id number] Unknown [id number] Unknown [id number] Social History Date Type Detail Facility Start: 11-19-2021 End: 08-25-2022 Tobacco smoking status NHIS Unknown if ever smoked [facility] Start: 1960 Sex Assigned At Male [facility] Start: 06-18-2024 Tobacco smoking stat us NHIS Never smoked tobacco (finding) [facility] Medical Equipment Procedure Code Equipment Code Equipment Origin al Text Equipment Identifier Dates EGD, with monitored anesthesia care RESOLUTION 360 CLIP 235 CM FDA Start: 02-11-2022 EGD, with monitored anesthesia care RESOLUTION 360 CLIP 235 CM FDA Start: 02-11-2022 EGD, with monitored anesthesia care RESOLUTION 360 CLIP 235 CM FDA Start: 02-11-2022 EGD, with monitored anesthesia care RESOLUTION 360 CLIP 235 CM FDA Start: 02-11-2022 EGD, with monitored anesthesia care RESOLUTION 360 CLIP 235 CM FDA Start: 02-11-2022 Goals Date Patient Goal Desired Activity /State Mental Status Date Assessment Result Facility 06-18-2024 Cognitive function Voice/Name [facility] Work Phone: 08-26-2022 Cognitive function Level Of Consciousness Sedated [facility] Work Phone: 08-26-2022 Cognitive function Voice/Name [facility] Work Phone: 04-11-2022 Cognitive function Awake;Alert;Appropriat e [facility] Work Phone: 02-11-2022 Cognitive function Level Of Consciousness Sedated [facility] Work Phone: 02-11-2022 Cognitive function Voice/Name [facility] Work Phone: Evaluation note 05-18-2024 Note Date & Type Note Facility 05-18-2024 Evaluation note Diagnosis Onset Date Resolution Gastroesophageal reflux disease with stricture acute May 10:20am [facility] Work Phone: History and physical note 08-26-2022 Note Date & Type Note Facility 08-26-2022 History and physical note Note Date/Time August 26, 2022 6:19am [facility] Medical Records Department [address] [place] [address] History & Physical Exam 08/26/22616 MR#: [id number] Acct: [id number] Name: DANTE HIRSCH Rep #:[id number] : 1960 61 From: Zion Juarez MD PCP: Dr. Omar Rodriges MD Status:[facility] Location: [address] - General General Date of Service: 08/26/22 Chief Complaint: Screening for intestinal cancer HPI Narrative DANTE HIRSCH, is a 61 M who presents for screening colonoscopy today. He presents via open access. He has not had a previous one. He has an uncle who had colon cancer. The patient denies any abdominal pain or bright red blood perrectum or melena. He has had previous upper endoscopy demonstrating reflux esophagitis but currently upon medication he is doing better. He is elected notto pursue further surgical investigation and/or treatment of his reflux disease at this time. [facility] Medical History (Updated 08/25/22 @ 10:53 by Niru Mcneil) Alcohol use Arthritis Back pain Easy bruising Gastric reflux History of edema History of hiatal hernia History of pain when walking Hypertension Leg cramps Loss of hearing Non-smoker Wears glasses Home Medications acetaminophen 325 mg tablet (Tylenol) 325 mg PO ONCE PRN Pain 01/23/22 [History Last Taken Unknown] amlodipine 10 mg tablet 10 mg PO DAILY 01/23/22 [History Last Taken Unknown] hydrochlorothiazide 25 mg tablet 25 mg PO DAILY 01/23/22 [History Last Taken Unknown] multivitamin 1 cap PO DAILY 02/06/22 [History Last Taken Unknown] omeprazole 20 mg capsule,delayed release 20 mg PO DAILY 08/25/22 [History Last Taken Unknown] Allergy/AdvReac Type Severity Reaction Status Date / Time No Known Allergies Allergy Verified 08/26/22 06:25 Family History (Updated 07/31/22 @ 11:49 by Paula Barth) Daughter Ulcerative colitis Uncle Colon cancer Surgical History (Updated 08/25/22 @ 10:44 by Niru Mcneil) History of carpal tunnel surgery of right wrist History of esophagogastroduodenoscopy (EGD) History of wisdom tooth extraction Hx of toe surgery Social History (Updated 07/31/22 @ 11:50 by Paula Barth) Smoking Status: Never smoker additional social history: ROS Constitutional Constitutional: Reports systems reviewed and no addt'l complaints, except as documented Cardiovascular Cardiovascular: Denies chest pain Respiratory/Chest Respiratory/Chest: Denies shortness of breath at rest Gastrointestinal Gastrointestinal: Denies abdominal pain, change in bowel habits, hematochezia ormelena Physical Exam Const alert, oriented x3 and no apparent distress General Appearance: cooperative and comfortable Eyes General Eye: normal appearance of both eyes Neck General: normal visual inspection Chest inspection of chest normal Resp Effort and Inspection: able to speak in complete sentences and symmetric chest movement Auscultation: clear to auscultation bilaterally Cardio regular rate and regular rhythm GI soft to palpation, non-tender and non-distended Extremity no calf tenderness Neuro oriented x3 Psych thought process normal Assessment & Plan Assessment/Plan (1) Encounter for screening for malignant neoplasm of colon: PLAN: I recommended the patient a screening colonoscopy with possible biopsy or polypectomy as indicated. He is aware of the technique, benefit, risk, alternatives. He has had an opportunity ask and have questions answered. We will proceed as noted. He presents via open access today. Zion Juarez M.D., F.A.C.S. 08/26/22 0627 <Electronically signed by Zion Juarez MD> Cosigner Signature (if applicable): CC: Dr. Omar Rodriges MD; Dr. Zion Juarez MD~ Signed [facility] Work Phone: Procedure note 08-26-2022 Note Date & Type Note Facility 08-26-2022 Procedure note [facility] Procedure note 08-26-2022 Note Date & Type Note Facility 08-26-2022 Procedure note [facility] Evaluation note Note Date & Type Note Facility Evaluation note No assessment information availa ble [facility] Work Phone: Evaluation note Note Date & Type Note Facility Evaluation note Diagnosis Onset Date Gastroesophageal reflux disease noneactive [facility] Work Phone: Evaluation note Note Date & Type Note Facility Evaluation note Diagnosis Onset Date Gastroesophageal reflux disease noneactive S/P dilatation of esophageal stricture acute [facility] Work Phone: Evaluation note Note Date & Type Note Facility Evaluation note Diagnosis Onset Date Gastroesophageal reflux disease noneactive S/P dilatation of esophageal stricture acute Gastroesophageal reflux dise ase with stricture acute S/P dilatation of esophageal stricture acute [facility] Work Phone: Evaluation note Note Date & Type Note Facility Evaluation note Diagnosis Onset Date Gastroesophageal reflux dise ase with stricture acute S/P dilatation of esophageal stricture acute Gastroesophageal reflux dise ase with stricture acute S/P dilatation of esophageal stricture acute [facility] Work Phone: Evaluation note Note Date & Type Note Facility Evaluation note Diagnosis Onset Date Gastroesophageal reflux dise ase with stricture acute S/P dilatation of esophageal stricture acute Encounter for screening for malignant neoplasm of colon [facility] Work Phone: Chief Complaint and Reason for Visit Chief Complaint laceration Chief Complaint laceration Gastroesophageal reflux disease (GERD) Reason for Visit Gastroesophageal ref lux disease Chief Complaint Gastroesophageal ref lux disease (GERD) 3 DAY FU EGD Reason for Visit Gastroesophageal ref lux disease S/P dilatation of esophageal stricture Chief Complaint Gastroesophageal ref lux disease (GERD) 3 DAY FU EGD ESOPHAGEAL Manometry RESULTS Reason for Visit Gastroesophageal ref lux disease S/P dilatation of esophageal stricture Gastroesophageal reflux disease with stricture S/P dilatation of esophageal stricture Chief Complaint ESOPHAGEAL Manometry RESULTS F/U GERD Amb Documentation Reason for Visit Gastroesophageal ref lux disease with stricture S/P dilatation of esophageal stricture Gastroesophageal reflux disease with stricture S/P dilatation of esophageal stricture Chief Complaint F/U GERD Amb Documentation Reason for Visit Gastroesophageal ref lux disease with stricture S/P dilatation of esophageal stricture Encounter for screening for malignant neoplasm of colon Chief Complaint Admit Date Acid reflux May 18, 2024 10:2 0am chest pain June 18, 2024 4:26pm HYPERTENSION July 06, 2024 9:53a m HYPERTENSION July 06, 2024 4:39p m Reason for Visit Admit Date Gastroesophageal reflux disease with str icture May 18, 2024 10:20am Advance Directives No Advanced Directives Records Found Advance Directive Response Recorded Date/ Time Living Will No November 19 1:42am Power of Photolettering Machine Operator No November 19 1:42am Advance Directive Response Recorded Date/ Time Living Will No November 19 12:42am Power of Photolettering Machine Operator No November 19 12:42am Advance Directive Response Recorded Date/ Time Living Will Yes February 06 12:43pm Power of Photolettering Machine Operator No February 06, 2022 12:43pm Advance Directive Response Recorded Date/ Time Living Will Yes February 06 1:43pm Power of Photolettering Machine Operator No February 06, 2022 1:43pm Advance Directive Response Recorded Date/ Time Name of Medical Power of Photolettering Machine Operator RONNY GUTIERREZ August 25, 2022 10:44am Living Will Yes August 25, 2022 10:44am Power of Photolettering Machine Operator Yes August 25 10:44am Advance Directive Response Recorded Date/ Time Do you have a Healthcare Power of Photolettering Machine Operator? No June 18, 2024 4:32pm Family History No Family History Records Found Relationship Condition Age at Onset Recorded Date/T urvashi daughter Ulcerative colitis Unknown uncle Malignant neoplasm of colon Unknown Summary Purpose Additional Source Comments Goals (unrecognized section and content) Goals may be documented in a n alternate sectionGoals may be documented in an alternate sectionGoals may be documented in an alternate sectionGoals may be documented in an alternate section Care Teams (unrecognized sec tion and content) Team Status: Active Member Role Status Dates No Primary Care Physician Family Provider Active Dr. Omar Rodriges MD Primary Care Provider Active Team Status: Inactive Member Role Status Dates Dr. Omar Rodriges MD Primary Care Provider, Referr ing Provider Active Dr. Zion Juarez MD Attending Provider Active Team Status: Active Member Role Status Dates Dr. Omar Rodriges MD Primary Care Provider, Referr ing Provider Active Dr. Zion Juarez MD Attending Provider, Other Prov ider Active Team Status: Inactive Member Role Status Dates Dr. Omar Rodriges MD Primary Care [facility], Attending Provider, Referring Provider Active Team Status: Inactive Member Role Status Dates Dr. Omar Rodriges MD Primary Care Provider Active Dr. Zion Juarez MD Referring Provider Active Dr. Vasquez Garcia MD Attending Provider Active Team Status: Active Member Role Status Dates Dr. Omar Rodriges MD Primary Care Provider Active Paula Barth Attending Provider Active Team Status: Inactive Member Role Status Dates Dr. Omar Rodriges MD Primary Care Provider, Attend ing Provider Active Team Status: Active Member Role Status Dates Dr. Omar Rodriges MD Primary Care Provider Active Team Status: Inactive Member Role Status Dates Dr. Omar Rodriges MD Primary Care Provider Active Start: May 18, 2024 End: May 18, 2024 Dr. Omar Rodriges MD Referring Provider Active Start: May 18, 2024 End: May 18, 2024 HERON Storm Attending Provider Active Start: May 18, 2024 End: May 18, 2024 Team Status: Inactive Member Role Status Dates Dr. Omar Rodriges MD Primary Care Provider Active Start: June 18, 2024 End: June 18, 2024 Dr. Gordo Crespo DO Attending Provider Active Start: June 18, 2024 End: June 18, 2024 Dr. Gordo Crespo DO Emergency Provider Active Start: June 18, 2024 End: June 18, 2024 Team Status: Inactive Member Role Status Dates Dr. Omar Rodriges MD Primary Care Provider Active Start: July 06, 2024 End: July 06, 2024 Dr. Omar Rodriges MD Attending Provider Active Start: July 06, 2024 End: July 06, 2024 Dr. Omar Rodriges MD Referring Provider Active Start: July 06, 2024 End: July 06, 2024 Team Status: Active Member Role Status Dates Dr. Omar Rodriges MD Primary Care Provider Active Start: July 06, 2024 Dr. Omar Rodriges MD Referring Provider Active Start: July 06, 2024 Dr. Omar Rodriges MD Other Provider Active S tart: July 06, 2024 Dr. Erlin Lynn MD Attending Provider Active S tart: July 06, 2024 (unrecognized sect ion and content) No Status Records Found INFORMATION SOURCE (unrecogn ized section and content) DATE CREATED AUTHOR 07/26/2024 [facility] FOR RECORDS PERTAINING TO PATIENTS WHO ARE OR HAVE BEEN ENROLLED IN A CHEMICAL DEPENDENCY/SUBSTANCEABUSE PROGRAM, SOME INFORMATION MAY BE OMITTED. This clinical summary was aggregated from multiple sources. Caution should be exercised in using it in the provision of clinical care. This summary normalizes information from multiple sources, and as a consequence, information in this document may materially change the coding, format and clinical context of patient data. In addition, data may be omitted in some cases. CLINICAL DECISIONS SHOULD BE BASED ON THE PRIMARY CLINICAL RECORDS. [employer] provides no warranty or guarantee of the accuracy or completeness of information in this document.
--- OUTSIDE RECORDS SUMMARY | 2024-08-31 21:03 | XMS RPT_ITS | CCD ---
Author Organization [facility] CliniSymt Care Team Providers Care Program Arranger Name Role Phone Dr. Omar Rodriges Primary Care Provider [phone] Dr. Omar Rodriges Referring Provider Dr. Zion Juarez Attending Provider Dr. Zion Juarez Other Provider Dr. Omar Rodriges Primary Care Provider Dr. Omar Rodriges Referring Provider Dr. Zion Juarez Attending Provider [phone] Paula Barth Attending Provider Unavailable Dr. Omar Rodriges Primary Care Provider [phone] Dr. Omar Rodriges Referring Provider Dr. Zion Juarez Attending Provider [phone] Zion Juarez Other Provider Dr. Omar Rodriges MD Primary Care Provider [phone] Dr. Omar Rodriges MD Referring Provider Vasquez ALFAROCAlicia Attending Provider Dr. Gordo Crespo DO Attending Provider Dr. Gordo Crespo DO Emergency Provider Dr. Omar Rodriges MD Attending Provider [phone] Dr. Omar Rodriges MD Other Provider [phone] [...] 1:00am Start: 02-06-2022 take 1 capsule by [facility] once daily Multivitamin Active 1 CAP PO [...] By: Erlin Lynn on 07-06-2024 Study report [facility] Services [address] [place] [address] MR#: [id number] Acct: [id number] Name: DANTE HIRSCH Rep #: [id number] : 1960 63 From: Erlin Lynn MD [...] Date Dictated: 07/06/24 163 Date Transcribed: 07/06/241638 Applications Development Consultant: [place] Signed [facility] Work Phone: Stress Reporton 07-06-2024 Stress Report [facility] Cardi[facility] Services [address] [address] MR#: [id number] Acct: [id number] Name: DANTE HIRSCH Rep #: [id number] : 1960 63 From: Erlin Lynn MD Primary Care: Dr. Omar Rodriges MD Status: [facility] Referring Dr: Omar Rodriges MD Sex: M [...] MD Date Dictated: 07/06/241638 Date Transcribed: 07/06/241638 Applications Development Consultant: CO Signed Normal [facility] 12 Lead EKGon 06-18-2024 12 Lead EKG [facility] Cardiovascular Services [address] [place] [address] 12 Lead EKG 06/18/24 163 MR#: [id number] Acct: [id number] Name: DANTE HIRSCH Rep #: [id number] : 1960 63 From: Porter Galindo MD [...] rhythm Normal ECG Confirmed by Porter Galindo ([id number]), marketing editor YULIANA JEFFREY ([id number]) on 06/24/2024 12:58:27 PM Referred By: Confirmed By: Porter Galindo 06/24/24 1258 Date Porter Galindo MD CC: Dr. Gordo Crespo DO; Dr. Omar Rodriges MD Signed Normal [facility] Absolute lymphocyte countOrd ered By: Gordo Crespo on 06-18-2024 Lymphocytes Auto (Unsp spec) [#/Vol] 1.69 10*3/uL 0.83-4.51 [facility] Absolute neutrophil countOrd ered By: Gordo Crespo on 06-18-2024 Neutrophils (Bld) [#/Vol] 4.7 10*3/uL 2.0-7.7 [facility] Anion gap in Serum or Plasma Ordered By: Gordo Crespo on 06-18-2024 Anion gap [Moles/Vol] 11 mmol/L 06-30 [facility] Automated lymphocyte count a s percentage of total leukocytesOrdered By: Gordo Crespo on 06-18-2024 Lymphocytes/100 WBC Auto (Unsp spec) 24.1 % - [facility] BUN/creatinine ratioOrdered By: Gordo Crespo on 06-18-2024 Urea nitrogen/Creatinine [Mass ratio] 14.3 mg/mg - [facility] Basic Metabolic Profile (BMP )on 06-18-2024 BUN/CRE 14.3 RATIO Normal 12-05 [facility] Comment on above: Performed By: #### L 100.0100, L500.2500, L501.4021 ####[facility] [address] [place], [address] Calcium [Mass/Vol] 9.8 mg/dL Normal 7.6-11.[address] [facility] Comment on above: Performed By: #### L 100.0100, L500.2500, L501.4021 ####[facility] [address] [place], [address] Chloride [Moles/Vol] 102 mmol/L Normal 98-108 [facility] Comment on above: Performed By: #### L 100.0100, L500.2500, L501.4021 ####[facility] [address] [place], [address] CO2 [Moles/Vol] 24.3 mmol/L Normal 21.0-32.0 [facility] Comment on above: Performed By: #### L 100.0100, L500.2500, L501.4021 ####[facility] [address] [place], [address] Creatinine [Mass/Vol] 1.00 mg/dL Normal 0.70-1.20 [facility] Comment on above: Performed By: #### L 100.0100, L500.2500, L501.4021 ####[facility] [address] [place], [address] ECRCL 83.39 ml/min Normal 50-250 [facility] Comment on above: Performed By: #### L 100.0100, L500.2500, L501.4021 ####[facility] [address] [place], [address] GAP 11 Normal 5-15 [facility] Comment on above: Performed By: #### L 100.0100, L500.2500, L501.4021 ####[facility] [address] [place], [address] GFR/1.73 sq M.predicted among non-blacks MDRD (S/P/Bld) [Vol rate/Area] 84 mL/min/{1.73_m2} Normal >60 [facility] Comment on above: Result Comment: mL/m in/1.73m2 CKD-EPI Creatinine Equation (2020) Performed By: #### L 100.0100, L500.2500, L501.4021 ####[facility] [address] [place], [address] Glucose [Mass/Vol] 112 mg/dL High 70-[address] [facility] Comment on above: Performed By: #### L 100.0100, L500.2500, L501.4021 ####[facility] [address] [place], [address] Potassium [Moles/Vol] 3.8 mmol/L Normal 3.3-5.1 [facility] Comment on above: Performed By: #### L 100.0100, L500.2500, L501.4021 ####[facility] [address] [place], [address] Sodium [Moles/Vol] 137 mmol/L Normal 133-[address] [facility] Comment on above: Performed By: #### L 100.0100, L500.2500, L501.4021 ####[facility] [address] [place], [address] Urea nitrogen [Mass/Vol] 14 mg/dL Normal 4-19 [facility] Comment on above: Performed By: #### L 100.0100, L500.2500, L501.4021 ####[facility] [address] [place], [address] Basophil percentageOrdered B y: Gordo Cherie on 06-18-2024 Basophils/100 WBC (Bld) 0.9 % 0-1 [facility] CBC W/Diff, Automatedon Absolute Lymph 1.69 X10 3/uL Normal 0.83-4.51 [facility] Comment on above: Performed By: #### L 100.0100, L500.2500, L501.4021 #### [facility] [address] [place], [address] Absolute Neut 4.7 X10 3/uL Normal 2.0-7.7 [facility] Comment on above: Performed By: #### L 100.0100, L500.2500, L501.4021 #### [facility] [address] [place], [address] Basophils/100 WBC (Bld) 0.9 % Normal 0-1 [facility] Comment on above: Performed By: #### L 100.0100, L500.2500, L501.4021 #### [facility] [address] [place], [address] Eosinophils/100 WBC (Bld) 0.7 % Normal 0-5 [facility] Comment on above: Performed By: #### L 100.0100, L500.2500, L501.4021 #### [facility] [address] [place], [address] Erythrocyte distribution width (RBC) [Ratio] 13.5 % Normal 11.6-14.6 [facility] Comment on above: Performed By: #### L 100.0100, L500.2500, L501.4021 #### [facility] [address] [place], [address] Hematocrit (Bld) [Volume fraction] 46.8 % Normal 40-54 [facility] Comment on above: Performed By: #### L 100.0100, L500.2500, L501.4021 #### [facility] [address] [place], [address] Hemoglobin (Bld) [Mass/Vol] 15.7 g/dL Normal 13.0-16.5 [facility] Comment on above: Performed By: #### L 100.0100, L500.2500, L501.4021 #### [facility] [address] [place], [address] IG% 0.400 Normal 0.0-0.9 [facility] Comment on above: Result Comment: IG% - Immature Granulocytes (promyelocytes, myelocytes and metamyelocytes) > 1% indicates that a LEFT SHIFT is Present. Performed By: #### L 100.0100, L500.2500, L501.4021 #### [facility] [address] [place], [address] Lymphocytes/100 WBC (Bld) 24.1 % Normal 19-41 [facility] Comment on above: Performed By: #### L 100.0100, L500.2500, L501.4021 #### [facility] [address] [place], [address] MCH (RBC) [Entitic mass] 29.0 pg Normal 27.0-32.0 [facility] Comment on above: Performed By: #### L 100.0100, L500.2500, L501.4021 #### [facility] [address] [place], [address] MCHC (RBC) [Mass/Vol] 33.5 g/dL Normal 32-36 [facility] Comment on above: Performed By: #### L 100.0100, L500.2500, L501.4021 #### [facility] [address] [place], [address] MCV (RBC) [Entitic vol] 86.3 fL Normal 80-94 [facility] Comment on above: Performed By: #### L 100.0100, L500.2500, L501.4021 #### [facility] [address] [place], [address] Monocytes/100 WBC (Bld) 6.4 % Normal 0-10 [facility] Comment on above: Performed By: #### L 100.0100, L500.2500, L501.4021 #### [facility] [address] [place], [address] Neutrophils/100 WBC (Bld) 67.5 % Normal 47-70 [facility] Comment on above: Performed By: #### L 100.0100, L500.2500, L501.4021 #### [facility] [address] [place], [address] Nucleated RBC (Bld) [#/Vol] 0 10*3/uL Normal 0-5 [facility] Comment on above: Performed By: #### L 100.0100, L500.2500, L501.4021 #### [facility] [address] [place], [address] Platelet mean volume (Bld) [Entitic vol] 9.4 fL Normal 6.2-12.0 [facility] Comment on above: Performed By: #### L 100.0100, L500.2500, L501.4021 #### [facility] [address] [place], [address] Platelets (Bld) [#/Vol] 279 10*3/uL Normal 150-450 [facility] Comment on above: Performed By: #### L 100.0100, L500.2500, L501.4021 #### [facility] [address] [place], [address] RBC (Bld) [#/Vol] 5.42 10*6/uL Normal 4.6-6.2 [facility] Comment on above: Performed By: #### L 100.0100, L500.2500, L501.4021 #### [facility] [address] [place], [address] RDW SD 42.0 fl Normal 35.1-43.9 [facility] Comment on above: Performed By: #### L 100.0100, L500.2500, L501.4021 #### [facility] [address] [place], [address] WBC (Bld) [#/Vol] 7.0 10*3/uL Normal 4.4-11.[address] [facility] Comment on above: Performed By: #### L 100.0100, L500.2500, L501.4021 #### [facility] [address] [place], [address] Carbon dioxide, total [Moles /volume] in Central venous bloodOrdered By: Gordo Crespo on 06-18-2024 CO2 [Moles/Vol] 24.3 mmol/L 21.0-32.0 [facility] Chest 1 View (Portable)on Chest 1 View (Portable) [facility] Imaging Services [address] [place] [address] Chest 1 View (Portable) MR#: [id number] Acct: [id number] Name: DANTE HIRSCH Rep #: [id number] : 1960 M 63 From: Elliott ríos MD PCP: Dr. Omar Rodriges MD Status: REG ER Study: Chest 1 View (Portable) Date of Exam: 06/18/24 Exam# [id number] Ordering Dr: Gordo Crespo DO PROCEDURE: CHEST 1 VIEW (PORTABLE) 06/18/2024 REASON FOR EXAM: CHEST PAIN TECHNIQUE: Frontal view of the chest. COMPARISON: None FINDINGS: Hardware: None Heart: The heart size is normal. Lungs: No focal consolidation. No pneumothorax. No pleural effusion. Bones: The bones are unremarkable. Other: RAD/Chest 1 View (Portable) IMPRESSION: No Acute Findings. Reading Location: [facility] CC: Dr. Gordo Crespo DO; Dr. Omar Rodriges MD Applications Development Consultant: Signed Normal [facility] Chloride assayOrdered By: Benny Crespo on 06-18-2024 Chloride [Moles/Vol] 102 mmol/L 98-108 [facility] Emergency Department Summary on 06-18-2024 Emergency Department Summary [facility] Medical Records Department [address] [place] [address] Emergency Department Summary 06/18/24 MR#: [id number] Acct: [id number] Name: DANTE HIRSCH Rep #: [id number] : 1960 63 From: Gordo Crespo DO [...] risk factors. He denies any leg symptoms. [facility] Medical History Easy bruising History of hiatal [...] 06/18/24 19:40 (more content not included)... Normal [facility] Eosinophil percentageOrdered By: Gordo Crespo on 06-18-2024 Eosinophils/100 WBC (Bld) 0.7 % 0-5 [facility] Erythrocyte distribution wid th ratioOrdered By: Gordo Crespo on 06-18-2024 Erythrocyte distribution width (RBC) [Ratio] 13.5 % 11.6-14.6 [facility] Erythrocyte distribution wid th standard deviationOrdered By: Gordo Crespo on 06-18-2024 Erythrocyte distribution width (RBC) [Ratio] 42.0 fl 35.1-43.9 [facility] Glomerular filtration rate ( GFR) estimation/1.73 sq m using serum, plasma, or whole bOrdered By: Gordo Crespo on 06-18-2024 GFR/1.73 sq M.predicted among non-blacks MDRD (S/P/Bld) [Vol rate/Area] 84 mL/min/{1.73_m2} >60 [facility] Comment on above: mL/min/1.73m2 CKD-EP I Creatinine Equation (2020) Hematocrit Auto (Bld) [Volum e fraction]Ordered By: Gordo Crespo on 06-18-2024 Hematocrit (Bld) [Volume fraction] 46.8 % 40-54 [facility] Hemoglobin measurementOrdere d By: Gordo Crespo on 06-18-2024 Hemoglobin (Bld) [Mass/Vol] 15.7 g/dL 13.0-16.5 [facility] Immature granulocytes/100 WB C Auto (Bld)Ordered By: Gordo Crespo on 06-18-2024 Immature granulocytes/100 WBC (Bld) 0.400 % 0.0-0.9 [facility] Comment on above: IG% - Immature Granu locytes (promyelocytes, myelocytes and metamyelocytes) > 1% indicates that a LEFT SHIFT is Present. L499.0042on 06-18-2024 Trop T High Sen 26 ng/L High <=22 [facility] Comment on above: Result Comment: Hemo lysis present, Results??could be affected. ?? Performed By: #### L 499.0042 ####[facility] [address] [place], [address] L501.4021on 06-18-2024 Trop T High Sen 29 ng/L High <=22 [facility] Comment on above: Performed By: #### L 100.0100, L500.2500, L501.4021 ####[facility] [address] [place], [address] MCV (mean corpuscular volume ) determinationOrdered By: Gordo Crespo on 06-18-2024 MCV (RBC) [Entitic vol] 86.3 fL 80-94 [facility] Mean corpuscular hemoglobin (MCH) determinationOrdered By: Gordo Crespo on 06-18-2024 MCH (RBC) [Entitic mass] 29.0 pg 27.0-32.0 [facility] Mean corpuscular hemoglobin concentration (MCHC) determinationOrdered By: Gordo Crespo on 06-18-2024 MCHC (RBC) [Mass/Vol] 33.5 g/dL 32-36 [facility] Mean platelet volume determi nationOrdered By: Gordo Crespo on 06-18-2024 Platelet mean volume (Bld) [Entitic vol] 9.4 fL 6.2-12.0 [facility] Monocyte percentageOrdered B y: Gordo Crespo on 06-18-2024 Monocytes/100 WBC (Bld) 6.4 % 0-10 [facility] Neutrophil percentageOrdered By: Gordo Crespo on 05-03-2025 Neutrophils/100 WBC (Bld) 67.5 % 47-70 [facility] Nucleated red blood cell per centageOrdered By: Gordo Crespo on 06-18-2024 Nucleated RBC/100 WBC (Bld) [Ratio] 0 % 0-5 [facility] Platelet countOrdered By: Benny Crespo on 06-18-2024 Platelets (Bld) [#/Vol] 279 10*3/uL 150-450 [facility] Potassium measurement (mass/ volume)Ordered By: Gordo Crespo on 06-18-2024 Potassium (Unsp spec) [Mass/Vol] 3.8 mmol/L 3.3-5.1 [facility] RBC Auto (Bld) [#/Vol]Ordere d By: Gordo Crespo on 06-18-2024 RBC (Bld) [#/Vol] 5.42 10*6/uL 4.6-6.2 [facility] Serum creatinine measurement (mass/volume)Ordered By: Gordo Crespo on 06-18-2024 Creatinine [Mass/Vol] 1.00 mg/dL 0.70-1.20 [facility] Serum glucose measurement (m ass/volume)Ordered By: Gordo Crespo on 06-18-2024 Glucose [Mass/Vol] 112 mg/dL High 70-[address] [facility] Serum or plasma calcium floyd urement (mass/volume)Ordered By: Gordo Crespo on 06-18-2024 Calcium [Mass/Vol] 9.8 mg/dL 7.6-11.[address] [facility] Serum or plasma urea nitroge n measurement (mass/volume)Ordered By: Gordo Crespo on 06-18-2024 Urea nitrogen [Mass/Vol] 14 mg/dL 4-19 [facility] Sodium levelOrdered By: Casper Crespo on 06-18-2024 Sodium [Moles/Vol] 137 mmol/L 133-[address] [facility] Troponin T.cardiac [Mass/vol ume] in Serum or Plasma by High sensitivity methodOrdered By: Gordo Crespo on 06-18-2024 Troponin T.cardiac High sensitivity method [Mass/Vol] 26 ng/L High <22 [facility] Comment on above: Hemolysis present, R esults could be affected. Troponin T.cardiac High sensitivity method [Mass/Vol] 29 ng/L High <22 [facility] White blood cell (WBC) count Ordered By: Gordo Crespo on 06-18-2024 WBC (Bld) [#/Vol] 7.0 10*3/uL 4.4-11.[address] [facility] Gastroenterology Visit Repor ton 05-18-2024 Gastroenterology Visit Report [facility] Gastroenterology [address] [place] [place] [address] OFFICE VISIT Date of Service: 05/18/24 MR#: [id number] Acct: [id number] Name: DANTE HIRSCH Rep #: [id number] : 1960 Provider: HERON medina Age/Sex: 63/M Location: [facility] Status: Signed Intake Vital Signs 08/26/22 06:39 05/18/24 10:47 Height 5 ft 9 in 5 ft 9 in Weight: 194 lb 8 oz BMI 28.7 BP 130/80 H Respiration 18 Pulse 78 Pulse Oximetry (%) 96 Oxygen Delivery Method room air Intake Visit Reasons: Acid reflux Chief Complaint: Discuss GERD/Surgery Dry Cleaner Required: No Is patient in pain?: No [...] bleeding - worried about daughter/granddaughter moving to [place] - son-in-law is in the [employer] and [...] oriented x3 (more content not included)... Normal [facility] CBC W/Diff, Automatedon Absolute Lymph 1.71 X10 3/uL Normal 0.83-4.51 [facility] Comment on above: Order Comment: Order Date: 02/23/24 Order Info: 0184-1 - CBCD Performed By: #### L 500.4050, L501.9985, L501.5200, L100.0100, L500.4100 #### [facility] [address] [place], [address] Absolute Neut 3.5 X10 3/uL Normal 2.0-7.7 [facility] Comment on above: Order Comment: Order Date: 02/23/24 Order Info: 0184-1 - CBCD Performed By: #### L 500.4050, L501.9985, L501.5200, L100.0100, L500.4100 #### [facility] [address] [place], [address] Basophils/100 WBC (Bld) 1.2 % High 0-1 [facility] Comment on above: Order Comment: Order Date: 02/23/24 Order Info: 0184-1 - CBCD Performed By: #### L 500.4050, L501.9985, L501.5200, L100.0100, L500.4100 #### [facility] [address] [place], [address] Eosinophils/100 WBC (Bld) 5.4 % High 0-5 [facility] Comment on above: Order Comment: Order Date: 02/23/24 Order Info: 0184-1 - CBCD Performed By: #### L 500.4050, L501.9985, L501.5200, L100.0100, L500.4100 #### [facility] [address] [place], [address] Erythrocyte distribution width (RBC) [Ratio] 13.7 % Normal 11.6-14.6 [facility] Comment on above: Order Comment: Order Date: 02/23/24 Order Info: 0184-1 - CBCD Performed By: #### L 500.4050, L501.9985, L501.5200, L100.0100, L500.4100 #### [facility] [address] [place], [address] Hematocrit (Bld) [Volume fraction] 47.0 % Normal 40-54 [facility] Comment on above: Order Comment: Order Date: 02/23/24 Order Info: 0184-1 - CBCD Performed By: #### L 500.4050, L501.9985, L501.5200, L100.0100, L500.4100 #### [facility] [address] [place], [address] Hemoglobin (Bld) [Mass/Vol] 15.0 g/dL Normal 13.0-16.5 [facility] Comment on above: Order Comment: Order Date: 02/23/24 Order Info: 0184-1 - CBCD Performed By: #### L 500.4050, L501.9985, L501.5200, L100.0100, L500.4100 #### [facility] [address] [place], [address] IG% 0.200 Normal 0.0-0.9 [facility] Comment on above: Order Comment: Order Date: 02/23/24 Order Info: 0184-1 - CBCD Result Comment: IG% - Immature Granulocytes (promyelocytes, myelocytes and metamyelocytes) > 1% indicates that a LEFT SHIFT is Present. Performed By: #### L 500.4050, L501.9985, L501.5200, L100.0100, L500.4100 #### [facility] [address] [place], [address] Lymphocytes/100 WBC (Bld) 28.2 % Normal 19-41 [facility] Comment on above: Order Comment: Order Date: 02/23/24 Order Info: 0184-1 - CBCD Performed By: #### L 500.4050, L501.9985, L501.5200, L100.0100, L500.4100 #### [facility] [address] [place], [address] MCH (RBC) [Entitic mass] 28.0 pg Normal 27.0-32.0 [facility] Comment on above: Order Comment: Order Date: 02/23/24 Order Info: 0184-1 - CBCD Performed By: #### L 500.4050, L501.9985, L501.5200, L100.0100, L500.4100 #### [facility] [address] [place], [address] MCHC (RBC) [Mass/Vol] 31.9 g/dL Low 32-36 [facility] Comment on above: Order Comment: Order Date: 02/23/24 Order Info: 0184-1 - CBCD Performed By: #### L 500.4050, L501.9985, L501.5200, L100.0100, L500.4100 #### [facility] [address] [place], [address] MCV (RBC) [Entitic vol] 87.9 fL Normal 80-94 [facility] Comment on above: Order Comment: Order Date: 02/23/24 Order Info: 0184-1 - CBCD Performed By: #### L 500.4050, L501.9985, L501.5200, L100.0100, L500.4100 #### [facility] [address] [place], [address] Monocytes/100 WBC (Bld) 7.3 % Normal 0-10 [facility] Comment on above: Order Comment: Order Date: 02/23/24 Order Info: 0184-1 - CBCD Performed By: #### L 500.4050, L501.9985, L501.5200, L100.0100, L500.4100 #### [facility] [address] [place], [address] Neutrophils/100 WBC (Bld) 57.7 % Normal 47-70 [facility] Comment on above: Order Comment: Order Date: 02/23/24 Order Info: 0184-1 - CBCD Performed By: #### L 500.4050, L501.9985, L501.5200, L100.0100, L500.4100 #### [facility] [address] [place], [address] Nucleated RBC (Bld) [#/Vol] 0 10*3/uL Normal 0-5 [facility] Comment on above: Order Comment: Order Date: 02/23/24 Order Info: 0184-1 - CBCD Performed By: #### L 500.4050, L501.9985, L501.5200, L100.0100, L500.4100 #### [facility] [address] [place], [address] Platelet mean volume (Bld) [Entitic vol] 9.4 fL Normal 6.2-12.0 [facility] Comment on above: Order Comment: Order Date: 02/23/24 Order Info: 0184-1 - CBCD Performed By: #### L 500.4050, L501.9985, L501.5200, L100.0100, L500.4100 #### [facility] [address] [place], [address] Platelets (Bld) [#/Vol] 296 10*3/uL Normal 150-450 [facility] Comment on above: Order Comment: Order Date: 02/23/24 Order Info: 0184- - CBCD Performed By: #### L 500.4050, L501.9985, L501.5200, L100.0100, L500.4100 #### [facility] [address] [place], [address] RBC (Bld) [#/Vol] 5.35 10*6/uL Normal 4.6-6.2 [facility] Comment on above: Order Comment: Order Date: 02/23/24 Order Info: 0184- - CBCD Performed By: #### L 500.4050, L501.9985, L501.5200, L100.0100, L500.4100 #### [facility] [address] [place], [address] RDW SD 43.8 fl Normal 35.1-43.9 [facility] Comment on above: Order Comment: Order Date: 02/23/24 Order Info: [id number] - CBCD Performed By: #### L 500.4050, L501.9985, L501.5200, L100.0100, L500.4100 #### [facility] [address] [place], [address] WBC (Bld) [#/Vol] 6.1 10*3/uL Normal 4.4-11.[address] [facility] Comment on above: Order Comment: Order Date: 02/23/24 Order Info: [id number] - CBCD Performed By: #### L 500.4050, L501.9985, L501.5200, L100.0100, L500.4100 #### [facility] [address] [place], [address] Comprehensive Metabolic Prof ilon 02-23-2024 Albumin [Mass/Vol] 3.8 g/dL Normal 3.2-5.[address] [facility] Comment on above: Order Comment: Order Date: 02/23/24 Order Info: [id number] - CMP Order Info: [id number] - LIPID Order Info: [id number] - MG Performed By: #### L 500.4050, L501.9985, L501.5200, L100.0100, L500.4100 #### [facility] [address] [place], [address] Albumin/Globulin [Mass ratio] 1.0 {ratio} Normal 0.9-2.4 [facility] Comment on above: Order Comment: Order Date: 02/23/24 Order Info: [id number] - CMP Order Info: [id number] - LIPID Order Info: [id number] - MG Performed By: #### L 500.4050, L501.9985, L501.5200, L100.0100, L500.4100 #### [facility] [address] [place], [address] ALK P 58 U/L Normal 45-117 [facility] Comment on above: Order Comment: Order Date: 02/23/24 Order Info: [id number] - CMP Order Info: [id number] - LIPID Order Info: [id number] - MG Performed By: #### L 500.4050, L501.9985, L501.5200, L100.0100, L500.4100 #### [facility] [address] [place], [address] ALT [Catalytic activity/Vol] 33 U/L Normal 16-61 [facility] Comment on above: Order Comment: Order Date: 02/23/24 Order Info: 86-1 - CMP Order Info: [id number] - LIPID Order Info: [id number] - MG Performed By: #### L 500.4050, L501.9985, L501.5200, L100.0100, L500.4100 #### [facility] [address] [place], [address] AST [Catalytic activity/Vol] 22 U/L Normal 15-37 [facility] Comment on above: Order Comment: Order Date: 02/23/24 Order Info: 785-1 - CMP Order Info: [id number] - LIPID Order Info: [id number] - MG Performed By: #### L 500.4050, L501.9985, L501.5200, L100.0100, L500.4100 #### [facility] [address] [place], [address] Bilirubin [Mass/Vol] 0.50 mg/dL Normal 0.20-1.00 [facility] Comment on above: Order Comment: Order Date: 02/23/24 Order Info: 86-1 - CMP Order Info: [id number] - LIPID Order Info: [id number] - MG Result Comment: For patients on eltrombopag therapy, use of Dimension [place] TBIL is not recommended. Performed By: #### L 500.4050, L501.9985, L501.5200, L100.0100, L500.4100 #### [facility] [address] [place], [address] BUN/CRE 16.0 RATIO Normal 10-20 [facility] Comment on above: Order Comment: Order Date: 02/23/24 Order Info: [id number] - CMP Order Info: [id number] - LIPID Order Info: [id number] - MG Performed By: #### L 500.4050, L501.9985, L501.5200, L100.0100, L500.4100 #### [facility] [address] [place], [address] CA,Total 9.2 mg/dL Normal 8.5-10.1 [facility] Comment on above: Order Comment: Order Date: 02/23/24 Order Info: [id number] - CMP Order Info: [id number] - LIPID Order Info: [id number] - MG Performed By: #### L 500.4050, L501.9985, L501.5200, L100.0100, L500.4100 #### [facility] [address] [place], [address] Chloride [Moles/Vol] 104 mmol/L Normal 98-107 [facility] Comment on above: Order Comment: Order Date: 02/23/24 Order Info: 0786 - CMP Order Info: [id number] - LIPID Order Info: [id number] - MG Performed By: #### L 500.4050, L501.9985, L501.5200, L100.0100, L500.4100 #### [facility] [address] [place], [address] CO2 [Moles/Vol] 28.0 mmol/L Normal 21.0-32.0 [facility] Comment on above: Order Comment: Order Date: 02/23/24 Order Info: [id number] - CMP Order Info: [id number] - LIPID Order Info: [id number] - MG Performed By: #### L 500.4050, L501.9985, L501.5200, L100.0100, L500.4100 #### [facility] [address] [place], [address] Creatinine [Mass/Vol] 1.06 mg/dL Normal 0.70-1.30 [facility] Comment on above: Order Comment: Order Date: 02/23/24 Order Info: [id number] - CMP Order Info: [id number] - LIPID Order Info: [id number] - MG Result Comment: The validity of the calculated GFR GFRAA in patients over 70 years has not been determined. Clinical correlation is essential. Performed By: #### L 500.4050, L501.9985, L501.5200, L100.0100, L500.4100 #### [facility] [address] [place], [address] EST GFR - AA 90 mL/min Normal >60 [facility] Comment on above: Order Comment: Order Date: 02/23/24 Order Info: 0786-1 - CMP Order Info: [id number] - LIPID Order Info: [id number] - MG Result Comment: Afri can Colombian GFR Calc Performed By: #### L 500.4050, L501.9985, L501.5200, L100.0100, L500.4100 #### [facility] [address] [place], [place], [address] GAP 5 Normal 5-15 [facility] Comment on above: Order Comment: Order Date: 02/23/24 Order Info: 0786-1 - CMP Order Info: [id number] - LIPID Order Info: [id number] - MG Performed By: #### L 500.4050, L501.9985, L501.5200, L100.0100, L500.4100 #### [facility] [address] [place], [place], [address] GFR/1.73 sq M.predicted among non-blacks MDRD (S/P/Bld) [Vol rate/Area] 75 mL/min/{1.73_m2} Normal >60 [facility] Comment on above: Order Comment: Order Date: 02/23/24 Order Info: 0786-1 - CMP Order Info: [id number] - LIPID Order Info: [id number] - MG Result Comment: Non- GFR Calc Performed By: #### L 500.4050, L501.9985, L501.5200, L100.0100, L500.4100 #### [facility] [address] [place], [address] Globulin (S) [Mass/Vol] 3.7 g/dL Normal 2.2-4.2 [facility] Comment on above: Order Comment: Order Date: 02/23/24 Order Info: 0786-1 - CMP Order Info: [id number] - LIPID Order Info: [id number] - MG Performed By: #### L 500.4050, L501.9985, L501.5200, L100.0100, L500.4100 #### [facility] [address] [place], [address] Glucose [Mass/Vol] 102 mg/dL Normal 74-[address] [facility] Comment on above: Order Comment: Order Date: 02/23/24 Order Info: 07-1 - CMP Order Info: [id number] - LIPID Order Info: [id number] - MG Result Comment: Fast ing Glucose result from 100 to 125 mg/dL suggests IMPAIRED HOMEOSTASIS per A.D.A. criteria. Performed By: #### L 500.4050, L501.9985, L501.5200, L100.0100, L500.4100 #### [facility] [address] [place], [address] Potassium [Moles/Vol] 3.8 mmol/L Normal 3.5-5.1 [facility] Comment on above: Order Comment: Order Date: 02/23/24 Order Info: 0786-1 - CMP Order Info: [id number] - LIPID Order Info: [id number] - MG Performed By: #### L 500.4050, L501.9985, L501.5200, L100.0100, L500.4100 #### [facility] [address] [place], [address] Sodium [Moles/Vol] 136 mmol/L Normal 136-[address] [facility] Comment on above: Order Comment: Order Date: 02/23/24 Order Info: [id number] - CMP Order Info: [id number] - LIPID Order Info: [id number] - MG Performed By: #### L 500.4050, L501.9985, L501.5200, L100.0100, L500.4100 #### [facility] [address] [place], [address] T PROT 7.5 g/dL Normal 6.4-8.2 [facility] Comment on above: Order Comment: Order Date: 02/23/24 Order Info: [id number] - CMP Order Info: [id number] - LIPID Order Info: [id number] - MG Performed By: #### L 500.4050, L501.9985, L501.5200, L100.0100, L500.4100 #### [facility] [address] [place], [address] Urea nitrogen [Mass/Vol] 17 mg/dL Normal 7-18 [facility] Comment on above: Order Comment: Order Date: 02/23/24 Order Info: 0786-1 - CMP Order Info: [id number] - LIPID Order Info: [id number] - MG Performed By: #### L 500.4050, L501.9985, L501.5200, L100.0100, L500.4100 #### [facility] [address] [place], [address] Hemoglobin A1con 02-23-2024 HbA1c (Bld) [Mass fraction] 5.8 % High 3.8-5.6 [facility] Comment on above: Order Comment: Order Date: 02/23/24 Order Info: [id number] - A1C Result Comment: Norm al < 5.7 % Prediabetic 5.7 - 6.4 % Diabetic >or= 6.5 % Please note range changes. Performed By: #### L 500.4050, L501.9985, L501.5200, L100.0100, L500.4100 #### [facility] [address] [place], [address] Lipid Profileon 01-07-2025 Cholesterol [Mass/Vol] 178 mg/dL Normal 200 [facility] Comment on above: Order Comment: Order Date: 02/23/24 Order Info: 0786-1 - CMP Order Info: [id number] - LIPID Order Info: [id number] - MG Result Comment: <200 mg/dL Desirable 200-240 mg/dL Borderline >240 mg/dL High Risk Performed By: #### L 500.4050, L501.9985, L501.5200, L100.0100, L500.4100 #### [facility] [address] [place], [address] Cholesterol in HDL [Mass/Vol] 51 mg/dL Normal [facility] Comment on above: Order Comment: Order Date: 02/23/24 Order Info: 07- - CMP Order Info: [id number] - LIPID Order Info: [id number] - MG Result Comment: The drugs N-Acetylcysteine and Metamizole may falsely depress this assay. Reference Range HDL <40 mg/dL Low HDL Cholesterol HDL >or= 60 mg/dL High HDL Cholesterol Performed By: #### L 500.4050, L501.9985, L501.5200, L100.0100, L500.4100 #### [facility] [address] [place], [address] Cholesterol in LDL [Mass/Vol] 104 mg/dL Normal 0-130 [facility] Comment on above: Order Comment: Order Date: 02/23/24 Order Info: [id number] - CMP Order Info: [id number] - LIPID Order Info: [id number] - MG Performed By: #### L 500.4050, L501.9985, L501.5200, L100.0100, L500.4100 #### [facility] [address] [place], [address] Cholesterol in VLDL [Mass/Vol] 23 mg/dL Normal 5-40 [facility] Comment on above: Order Comment: Order Date: 02/23/24 Order Info: 0786-1 - CMP Order Info: [id number] - LIPID Order Info: [id number] - MG Performed By: #### L 500.4050, L501.9985, L501.5200, L100.0100, L500.4100 #### [facility] [address] [place], [address] Triglyceride [Mass/Vol] 117 mg/dL Normal [facility] Comment on above: Order Comment: Order Date: 02/23/24 Order Info: [id number] - CMP Order Info: [id number] - LIPID Order Info: [id number] - MG Result Comment: The drugs N-Acetylcysteine and Metamizole may falsely depress this assay. Serum Triglycerides Reference Interval Normal <150 mg/dL Borderline high 150 - 199 mg/dL High 200 - 499 mg/dL Very High > or = 500 mg/dL Performed By: #### L 500.4050, L501.9985, L501.5200, L100.0100, L500.4100 #### [facility] [address] [place], [address] Magnesiumon 02-23-2024 Magnesium [Mass/Vol] 2.2 mg/dL Normal 1.6-2.6 [facility] Comment on above: Order Comment: Order Date: 02/23/24 Order Info: 0786-1 - CMP Order Info: [id number] - LIPID Order Info: - MG Performed By: #### L 500.4050, L501.9985, L501.5200, L100.0100, L500.4100 #### [facility] [address] [place], [address] Urinalysis, Completeon 02-22 BACTERIA 0 SEEN Normal None Seen [facility] Comment on above: Order Comment: CLEAN CATCH Performed By: #### L 400.0001 ####[facility] [address] [place], [address] EPI,SQUAMOUS 0 SEEN Normal 0-5 [facility] Comment on above: Order Comment: CLEAN CATCH Performed By: #### L 400.0001 ####[facility] [address] [place], [address] Mucus Ql (Urine sed) 0 SEEN Normal [facility] Comment on above: Order Comment: CLEAN CATCH Performed By: #### L 400.0001 ####[facility] [address] [place], [address] RBC 0 SEEN Normal 0-5 [facility] Comment on above: Order Comment: CLEAN CATCH Performed By: #### L 400.0001 ####[facility] [address] [place], [address] WBC 0 SEEN Normal 0-5 [facility] Comment on above: Order Comment: CLEAN CATCH Performed By: #### L 400.0001 ####[facility] [address] [place], [address] PSA Total+%Freeon 10-06-2023 PSA, FREE 0.52 ng/mL Normal N/A [facility] Comment on above: Result Comment: Veronica ríos ECLIA methodology. Performed By: #### L 3110.0500, L501.9940 ####[facility] [address] [place], [address] PSA, FREE % 17.3 Normal . [facility] Comment on above: Result Comment: [...] any other population of men. Performed at: [address] [id number] Leather Scrubber: Ron Lobo PhD, Phone: [phone] Performed By: #### L 3110.0500, L501.9940 ####[facility] [address] [place], [place], [address] PSA, TOTAL ULTR 3.010 ng/mL Normal 0.000-4.00 0 [facility] Comment on above: Result Comment: Veronica ríos ECLIA methodology. According to the [place] [employer], Serum PSA should decrease and [...] disease. Performed By: #### L 3110.0500, L501.9940 ####[facility] [address] [place], [place], [address] PSA,Total- Diagnosticon 09-16 PSA, DIAGNOSTIC 3.41 ng/mL Normal 0.0-4.0 [facility] Comment on above: Result Comment: This test was performed using the TPSA assay method for the [employer] chemistry system. Values obtained with different assay methods cannot be used interchangably. When changing PSA assays in the course of monitoring a patient, additional sequential testing should be carried out to confirm baseline values. Performed By: #### L 3110.0500, L501.9940 ####[facility] [address] [place], [place], [address] Comprehensive Metabolic Prof ilon 08-26-2023 Albumin [Mass/Vol] 4.0 g/dL Normal 3.2-5.[address] [facility] Comment on above: Order Comment: Order Date: 08/26/23Order Info: [id number] - CMPOrder Info: [id number] - LIPIDOrder Info: [id number] - MGOrder Info: [id number] - TSHOrder Info: [id number] - PSA Performed By: #### L 501.9520, L501.5200, L500.4050, L500.4100, L501.9910, L501.9985 ####[facility] [address] [place], [address] Albumin/Globulin [Mass ratio] 1.1 {ratio} Normal 0.9-2.4 [facility] Comment on above: Order Comment: Order Date: 08/26/23Order Info: 86-1 - CMPOrder Info: [id number] - LIPIDOrder Info: [id number] - MGOrder Info: [id number] - TSHOrder Info: 2857-1 - PSA Performed By: #### L 501.9520, L501.5200, L500.4050, L500.4100, L501.9910, L501.9985 ####[facility] [address] [place], [address] ALK P 59 U/L Normal 45-117 [facility] Comment on above: Order Comment: Order Date: 08/26/23Order Info: 785- - CMPOrder Info: [id number] - LIPIDOrder Info: [id number] - MGOrder Info: 3 - TSHOrder Info: [id number] - PSA Performed By: #### L 501.9520, L501.5200, L500.4050, L500.4100, L501.9910, L501.9985 ####[facility] [address] [place], [address] ALT [Catalytic activity/Vol] 28 U/L Normal 16-61 [facility] Comment on above: Order Comment: Order Date: 08/26/23Order Info: 785-1 - CMPOrder Info: [id number] - LIPIDOrder Info: [id number] - MGOrder Info: 3 - TSHOrder Info: [id number] - PSA Performed By: #### L 501.9520, L501.5200, L500.4050, L500.4100, L501.9910, L501.9985 ####[facility] [address] [place], [address] AST [Catalytic activity/Vol] 19 U/L Normal 15-37 [facility] Comment on above: Order Comment: Order Date: 08/26/23Order Info: 86-1 - CMPOrder Info: [id number] - LIPIDOrder Info: [id number] - MGOrder Info: [id number] - TSHOrder Info: 2857-1 - PSA Performed By: #### L 501.9520, L501.5200, L500.4050, L500.4100, L501.9910, L501.9985 ####[facility] [address] [place], [address] Bilirubin [Mass/Vol] 0.80 mg/dL Normal 0.20-1.00 [facility] Comment on above: Order Comment: Order Date: 08/26/23Order Info: 785-1 - CMPOrder Info: [id number] - LIPIDOrder Info: [id number] - MGOrder Info: 3 - TSHOrder Info: 285-1 - PSA Result Comment: For patients on eltrombopag therapy, use of Dimension [place] TBIL is not recommended. Performed By: #### L 501.9520, L501.5200, L500.4050, L500.4100, L501.9910, L501.9985 ####[facility] [address] [place], [address] BUN/CRE 16.3 RATIO Normal 10-20 [facility] Comment on above: Order Comment: Order Date: 08/26/23Order Info: 785-1 - CMPOrder Info: [id number] - LIPIDOrder Info: [id number] - MGOrder Info: [id number] - TSHOrder Info: 2857-1 - PSA Performed By: #### L 501.9520, L501.5200, L500.4050, L500.4100, L501.9910, L501.9985 ####[facility] [address] [place], [address] CA,Total 9.6 mg/dL Normal 8.5-10.1 [facility] Comment on above: Order Comment: Order Date: 08/26/23Order Info: 785- - CMPOrder Info: [id number] - LIPIDOrder Info: [id number] - MGOrder Info: 3 - TSHOrder Info: 1 - PSA Performed By: #### L 501.9520, L501.5200, L500.4050, L500.4100, L501.9910, L501.9985 ####[facility] [address] [place], [address] Chloride [Moles/Vol] 104 mmol/L Normal 98-107 [facility] Comment on above: Order Comment: Order Date: 08/26/23Order Info: [id number] - CMPOrder Info: - LIPIDOrder Info: [id number] - MGOrder Info: [id number] - TSHOrder Info: [id number] - PSA Performed By: #### L 501.9520, L501.5200, L500.4050, L500.4100, L501.9910, L501.9985 ####[facility] [address] [place], [address] CO2 [Moles/Vol] 25.0 mmol/L Normal 21.0-32.0 [facility] Comment on above: Order Comment: Order Date: 08/26/23Order Info: [id number] - CMPOrder Info: - LIPIDOrder Info: [id number] - MGOrder Info: 3 - TSHOrder Info: 2851 - PSA Performed By: #### L 501.9520, L501.5200, L500.4050, L500.4100, L501.9910, L501.9985 ####[facility] [address] [place], [address] Creatinine [Mass/Vol] 1.04 mg/dL Normal 0.70-1.30 [facility] Comment on above: Order Comment: Order Date: 08/26/23Order Info: 785- - CMPOrder Info: [id number] - LIPIDOrder Info: [id number] - MGOrder Info: 63 - TSHOrder Info: 2851 - PSA Result Comment: The validity of the calculated GFR GFRAA in patients over 70 years has not been determined. Clinical correlation is essential. Performed By: #### L 501.9520, L501.5200, L500.4050, L500.4100, L501.9910, L501.9985 ####[facility] [address] [place], [address] EST GFR - AA 93 mL/min Normal >60 [facility] Comment on above: Order Comment: Order Date: 08/26/23Order Info: 785- - CMPOrder Info: [id number] - LIPIDOrder Info: [id number] - MGOrder Info: 3 - TSHOrder Info: 285-1 - PSA Result Comment: Afri can Colombian GFR Calc Performed By: #### L 501.9520, L501.5200, L500.4050, L500.4100, L501.9910, L501.9985 ####[facility] [address] [place], [place], [id number] GAP 7 Normal 5-15 [facility] Comment on above: Order Comment: Order Date: 08/26/23Order Info: [id number] - CMPOrder Info: - LIPIDOrder Info: [id number] - MGOrder Info: 3 - TSHOrder Info: 2851 - PSA Performed By: #### L 501.9520, L501.5200, L500.4050, L500.4100, L501.9910, L501.9985 ####[facility] [address] [place], [place], [address]) GFR/1.73 sq M.predicted among non-blacks MDRD (S/P/Bld) [Vol rate/Area] 77 mL/min/{1.73_m2} Normal >60 [facility] Comment on above: Order Comment: Order Date: 08/26/23Order Info: 785-1 - CMPOrder Info: [id number] - LIPIDOrder Info: [id number] - MGOrder Info: 3 - TSHOrder Info: 2851 - PSA Result Comment: Non- GFR Calc Performed By: #### L 501.9520, L501.5200, L500.4050, L500.4100, L501.9910, L501.9985 ####[facility] [address] [place], [address] Globulin (S) [Mass/Vol] 3.6 g/dL Normal 2.2-4.2 [facility] Comment on above: Order Comment: Order Date: 08/26/23Order Info: 785- - CMPOrder Info: [id number] - LIPIDOrder Info: [id number] - MGOrder Info: 3 - TSHOrder Info: [id number] - PSA Performed By: #### L 501.9520, L501.5200, L500.4050, L500.4100, L501.9910, L501.9985 ####[facility] [address] [place], [address] Glucose [Mass/Vol] 103 mg/dL Normal 74-[address] [facility] Comment on above: Order Comment: Order Date: 08/26/23Order Info: [id number] - CMPOrder Info: [id number] - LIPIDOrder Info: [id number] - MGOrder Info: 3 - TSHOrder Info: 2856- - PSA Result Comment: Fast ing Glucose result from 100 to 125 mg/dL suggests IMPAIRED HOMEOSTASIS per A.D.A. criteria. Performed By: #### L 501.9520, L501.5200, L500.4050, L500.4100, L501.9910, L501.9985 ####[facility] [address] [place], [address] Potassium [Moles/Vol] 4.0 mmol/L Normal 3.5-5.1 [facility] Comment on above: Order Comment: Order Date: 08/26/23Order Info: 86-1 - CMPOrder Info: [id number] - LIPIDOrder Info: [id number] - MGOrder Info: [id number] - TSHOrder Info: 2857-1 - PSA Performed By: #### L 501.9520, L501.5200, L500.4050, L500.4100, L501.9910, L501.9985 ####[facility] [address] [place], [address] Sodium [Moles/Vol] 136 mmol/L Normal 136-[address] [facility] Comment on above: Order Comment: Order Date: 08/26/23Order Info: 86-1 - CMPOrder Info: [id number] - LIPIDOrder Info: [id number] - MGOrder Info: 3 - TSHOrder Info: [id number] - PSA Performed By: #### L 501.9520, L501.5200, L500.4050, L500.4100, L501.9910, L501.9985 ####[facility] [address] [place], [address] T PROT 7.6 g/dL Normal 6.4-8.2 [facility] Comment on above: Order Comment: Order Date: 08/26/23Order Info: 86-1 - CMPOrder Info: [id number] - LIPIDOrder Info: [id number] - MGOrder Info: 3 - TSHOrder Info: 2857-1 - PSA Performed By: #### L 501.9520, L501.5200, L500.4050, L500.4100, L501.9910, L501.9985 ####[facility] [address] [place], [address] Urea nitrogen [Mass/Vol] 17 mg/dL Normal 7-18 [facility] Comment on above: Order Comment: Order Date: 08/26/23Order Info: 86-1 - CMPOrder Info: [id number] - LIPIDOrder Info: [id number] - MGOrder Info: [id number] - TSHOrder Info: 2857-1 - PSA Performed By: #### L 501.9520, L501.5200, L500.4050, L500.4100, L501.9910, L501.9985 ####[facility] [address] [place], [address] Hemoglobin A1con 08-26-2023 HbA1c (Bld) [Mass fraction] 5.6 % Normal 3.8-5.6 [facility] Comment on above: Order Comment: Order Date: 08/26/23Order Info: [id number] - A1C Result Comment: Norm al < 5.7 % Prediabetic 5.7 - 6.4 % Diabetic >or= 6.5 % Please note range changes. Performed By: #### L 501.9520, L501.5200, L500.4050, L500.4100, L501.9910, L501.9985 ####[facility] [address] [place], [address] Lipid Profileon 08-26-2023 Cholesterol [Mass/Vol] 191 mg/dL Normal 200 [facility] Comment on above: Order Comment: Order Date: 08/26/23Order Info: [id number] - CMPOrder Info: [id number] - LIPIDOrder Info: [id number] - MGOrder Info: 3 - TSHOrder Info: [id number] - PSA Result Comment: <200 mg/dL Desirable 200-240 mg/dL Borderline >240 mg/dL High Risk Performed By: #### L 501.9520, L501.5200, L500.4050, L500.4100, L501.9910, L501.9985 ####[facility] [address] [place], [place], [id number] Cholesterol in HDL [Mass/Vol] 53 mg/dL Normal [facility] Comment on above: Order Comment: Order Date: 08/26/23Order Info: [id number] - CMPOrder Info: [id number] - LIPIDOrder Info: [id number] - MGOrder Info: [id number] - TSHOrder Info: [id number] - PSA Result Comment: The drugs N-Acetylcysteine and Metamizole may falsely depress this assay. Reference Range HDL <40 mg/dL Low HDL Cholesterol HDL >or= 60 mg/dL High HDL Cholesterol Performed By: #### L [id number], L501.5200, L500.4050, L500.4100, L501.9910, L501.9985 ####[facility] [address] [place], [address] Cholesterol in LDL [Mass/Vol] 113 mg/dL Normal 0-130 [facility] Comment on above: Order Comment: Order Date: 08/26/23Order Info: [id number] - CMPOrder Info: [id number] - LIPIDOrder Info: [id number] - MGOrder Info: [id number] - TSHOrder Info: [id number] - PSA Performed By: #### L [id number], L501.5200, L500.4050, L500.4100, L501.9910, L501.9985 ####[facility] [address] [place], [address] Cholesterol in VLDL [Mass/Vol] 25 mg/dL Normal 5-40 [facility] Comment on above: Order Comment: Order Date: 08/26/23Order Info: [id number] - CMPOrder Info: [id number] - LIPIDOrder Info: [id number] - MGOrder Info: [id number] - TSHOrder Info: [id number] - PSA Performed By: #### L [id number], L501.5200, L500.4050, L500.4100, L501.9910, L501.9985 ####[facility] [address] [place], [address] Triglyceride [Mass/Vol] 127 mg/dL Normal [facility] Comment on above: Order Comment: Order Date: 08/26/23Order Info: [id number] - CMPOrder Info: [id number] - LIPIDOrder Info: [id number] - MGOrder Info: [id number] - TSHOrder Info: [id number] - PSA Result Comment: The drugs N-Acetylcysteine and Metamizole may falsely depress this assay. Serum Triglycerides Reference Interval Normal <150 mg/dL Borderline high 150 - 199 mg/dL High 200 - 499 mg/dL Very High > or = 500 mg/dL Performed By: #### L [id number], L501.5200, L500.4050, L500.4100, L501.9910, L501.9985 ####[facility] [address] [place], [place], [address] Magnesiumon 08-26-2023 Magnesium [Mass/Vol] 2.3 mg/dL Normal 1.6-2.6 [facility] Comment on above: Order Comment: Order Date: 08/26/23Order Info: [id number] - CMPOrder Info: [id number] - LIPIDOrder Info: [id number] - MGOrder Info: [id number] - TSHOrder Info: [id number] - PSA Performed By: #### L [id number], L501.5200, L500.4050, L500.4100, L501.9910, L501.9985 ####[facility] [address] [place], [place], [address] PSA,Total - Annual Screenon 08-26-2023 PSA,TOT SCREEN 5.31 ng/mL High 0.00-4.00 [facility] Comment on above: Order Comment: Order Date: 08/26/23Order Info: [id number] - CMPOrder Info: [id number] - LIPIDOrder Info: [id number] - MGOrder Info: [id number] - TSHOrder Info: [id number] - PSA Result Comment: This test was performed using the TPSA assay method for the [employer] chemistry system. Values obtained with different assay methods cannot be used interchangably. When changing PSA assays in the course of monitoring a patient, additional sequential testing should be carried out to confirm baseline values. Performed By: #### L [id number], L501.5200, L500.4050, L500.4100, L501.9910, L501.9985 ####[facility] [address] [place], [place], [address] Thyroid Stim Hormone (TSH)on 08-26-2023 TSH 2.83 uIU/mL Normal 0.358-3.74 [facility] Comment on above: Order Comment: Order Date: 08/26/23Order Info: [id number] - CMPOrder Info: [id number] - LIPIDOrder Info: [id number] - MGOrder Info: [id number] - TSHOrder Info: [id number] - PSA Performed By: #### L [id number], [id number], L500.4050, L500.4100, L501.9910, L501.9985 ####[facility] [address] [facility] [address] [place], [place], [id number] Absolute lymphocyte countOrd ered By: Dr. Rodriges on 07-29-2022 Lymphocytes Auto (Unsp spec) [#/Vol] 1.71 10*3/uL 0.83-4.51 [facility] Basophil percentageOrdered B y: Dr. Rodriges on 07-29-2022 Basophils/100 WBC (Bld) 0.9 % 0-1 [facility] Bilirubin [Mass/Vol] 0.60 mg/dL 0.20-1.00 [facility] Comment on above: For patients on eltr ombopag therapy, use of Dimension [place] TBIL is not recommended. Chloride [Moles/Vol] 107 mmol/L 98-107 [facility] Eosinophils/100 WBC (Bld) 4.2 % 0-5 [facility] Glucose [Mass/Vol] 122 mg/dL 74-[address] [facility] Comment on above: Fasting Glucose resu lt from 100 to 125 mg/dL suggests IMPAIRED HOMEOSTASIS per A.D.A. criteria. Neutrophils (Bld) [#/Vol] 3.9 10*3/uL 2.0-7.7 [facility] Neutrophils/100 WBC (Bld) 60.5 % 47-70 [facility] Potassium [Moles/Vol] 4.0 mmol/L 3.5-5.1 [facility] Protein [Mass/Vol] 7.3 g/dL 6.4-8.[address] [facility] Sodium [Moles/Vol] 138 mmol/L 136-[address] [facility] WBC (Bld) [#/Vol] 6.5 10*3/uL 4.4-11.[address] [facility] Blood erythrocytes count (nu mber/volume)Ordered By: Dr. Rodriges on 07-29-2022 RBC (Bld) [#/Vol] 5.05 10*6/uL 4.6-6.2 [facility] Blood hemoglobin measurement (mass/volume)Ordered By: Dr. Rodriges on 07-29-2022 Hemoglobin (Bld) [Mass/Vol] 14.6 g/dL 13.0-16.5 [facility] Blood lymphocytes/100 leukoc ytesOrdered By: Dr. Rodriges on 07-29-2022 Lymphocytes/100 WBC (Bld) 26.5 % 19-41 [facility] Blood monocytes/100 leukocyt esOrdered By: Dr. Rodriges on 07-29-2022 Monocytes/100 WBC (Bld) 7.6 % 0-10 [facility] Blood platelet mean volumeOr dered By: Dr. Rodriges on 07-29-2022 Platelet mean volume (Bld) [Entitic vol] 9.8 fL 6.2-12.0 [facility] Determination of erythrocyte mean corpuscular volume (MCV)Ordered By: Dr. Rodriges on 07-29-2022 MCV (RBC) [Entitic vol] 91.9 fL 80-94 [facility] Hematocrit Auto (Bld) [Volum e fraction]Ordered By: Dr. Rodriges on 07-29-2022 Hematocrit (Bld) [Volume fraction] 46.4 % 40-54 [facility] Laboratory - Chemistry and C hemistry - challengeOrdered By: Dr. Rodriges on 07-29-2022 ALP [Catalytic activity/Vol] 57 U/L 45-117 [facility] ALT [Catalytic activity/Vol] 30 U/L 16-61 [facility] CO2 [Moles/Vol] 25.0 mmol/L 21.0-32.0 [facility] Globulin (S) [Mass/Vol] 3.4 g/dL 2.2-4.2 [facility] Urea nitrogen/Creatinine [Mass ratio] 15.6 mg/mg 10-20 [facility] - Hematology and Cell countsOrdered By: Dr. Rodriges on 07-29-2022 Erythrocyte distribution width (RBC) [Entitic vol] 45.1 fL 35.1-43.9 [facility] Erythrocyte distribution width (RBC) [Ratio] 13.3 % 11.6-14.6 [facility] Immature granulocytes/100 WBC (Bld) 0.300 % 0.0-0.9 [facility] Comment on above: IG% - Immature Granu locytes (promyelocytes, myelocytes and metamyelocytes) > 1% indicates that a LEFT SHIFT is Present. MCH (RBC) [Entitic mass] 28.9 pg 27.0-32.0 [facility] Nucleated RBC/100 WBC (Bld) [Ratio] 0 % 0-5 [facility] MCHC Auto (RBC) [Mass/Vol]Or dered By: Dr. Rodriges on 07-29-2022 MCHC (RBC) [Mass/Vol] 31.5 g/dL 32-36 [facility] No Panel InformationOrdered By: Dr. Rodriges on 07-29-2022 Estimated GFR (MDRD) Amer 101 mL/min >60 [facility] Comment on above: GFR Calc Estimated GFR (MDRD) Non-Af Amer 84 mL/min >60 [facility] Comment on above: Non- GFR Calc Prostate Specific Antigen Screen 3.76 ng/mL 0.00-4.00 [facility] Comment on above: This test was perfor med using the TPSA assay method [facility]. Values obtained with differentassay methods cannot be used interchangably.When changing PSA assays in the course of monitoring apatient, additional sequential testing should be carriedout to confirm baseline values. Platelets bldOrdered By: Dr. Rodriges on 07-29-2022 Platelets (Bld) [#/Vol] 286 10*3/uL 150-450 [facility] Serum or plasma albumin floyd urement (mass/volume)Ordered By: Dr. Rodriges on 07-29-2022 Albumin [Mass/Vol] 3.9 g/dL 3.2-5.[address] [facility] Serum or plasma albumin/glob ulin mass ratioOrdered By: Dr. Rodriges on 07-29-2022 Albumin/Globulin [Mass ratio] 1.1 {ratio} 0.9-2.4 [facility] Serum or plasma calcium floyd urement (mass/volume)Ordered By: Dr. Rodriges on 07-29-2022 Calcium [Mass/Vol] 9.1 mg/dL 8.5-10.[address] [facility] Serum or plasma creatinine m easurement (mass/volume)Ordered By: Dr. Rodriges on 07-29-2022 Creatinine [Mass/Vol] 0.96 mg/dL 0.70-1.30 [facility] Comment on above: The validity of the calculated GFR & GFRAA in patients over 70 years has not been determined. Clinical correlation is essential. Serum or plasma urea nitroge n measurement (mass/volume)Ordered By: Dr. Rodriges on 07-29-2022 Urea nitrogen [Mass/Vol] 15 mg/dL 7-18 [facility] Thin prep Papanicolaou smear with manual screeningOrdered By: Dr. Rodriges on 07-29-2022 Thin prep Papanicolaou smear with manual screening 23 U/L 15-37 [facility] Thin prep Papanicolaou smear with manual screening 6 5-15 [facility] Whole blood hemoglobin A1c/t otal hemoglobin ratio (mass fraction)Ordered By: Dr. Rodriges on 07-29-2022 HbA1c (Bld) [Mass fraction] 5.9 % 3.8-5.6 [facility] Comment on above: Normal < 5.7 % Predi abetic 5.7 - 6.4 % Diabetic >or= 6.5 % Please note range changes. Absolute lymphocyte countOrd ered By: Dr. Rodriges on 04-25-2022 Lymphocytes Auto (Unsp spec) [#/Vol] 1.83 10*3/uL 0.83-4.51 [facility] Basophil percentageOrdered B y: Dr. Rodriges on 04-25-2022 Basophils/100 WBC (Bld) 0.9 % 0-1 [facility] Bilirubin [Mass/Vol] 0.50 mg/dL 0.20-1.[address] [facility] Comment on above: For patients on eltr ombopag therapy, use of Dimension [place] TBIL is not recommended. Chloride [Moles/Vol] 104 mmol/L 98-107 [facility] Eosinophils/100 WBC (Bld) 4.5 % 0-5 [facility] Glucose [Mass/Vol] 112 mg/dL 74-[address] [facility] Comment on above: Fasting Glucose resu lt from 100 to 125 mg/dL suggests IMPAIRED HOMEOSTASIS per A.D.A. criteria. Neutrophils (Bld) [#/Vol] 3.2 10*3/uL 2.0-7.7 [facility] Neutrophils/100 WBC (Bld) 54.0 % 47-70 [facility] Potassium [Moles/Vol] 4.0 mmol/L 3.5-5.1 [facility] Protein [Mass/Vol] 7.3 g/dL 6.4-8.[address] [facility] Sodium [Moles/Vol] 138 mmol/L 136-[address] [facility] WBC (Bld) [#/Vol] 5.8 10*3/uL 4.4-11.[address] [facility] Blood erythrocytes count (nu mber/volume)Ordered By: Dr. Rodriges on 04-25-2022 RBC (Bld) [#/Vol] 4.66 10*6/uL 4.6-6.2 [facility] Blood hemoglobin measurement (mass/volume)Ordered By: Dr. Rodriges on 04-25-2022 Hemoglobin (Bld) [Mass/Vol] 13.6 g/dL 13.0-16.5 [facility] Blood lymphocytes/100 leukoc ytesOrdered By: Dr. Rodriges on 04-25-2022 Lymphocytes/100 WBC (Bld) 31.4 % 19-41 [facility] Blood monocytes/100 leukocyt esOrdered By: Dr. Rodriges on 04-25-2022 Monocytes/100 WBC (Bld) 8.9 % 0-10 [facility] Blood platelet mean volumeOr dered By: Dr. Rodriges on 04-25-2022 Platelet mean volume (Bld) [Entitic vol] 9.5 fL 6.2-12.0 [facility] Determination of erythrocyte mean corpuscular volume (MCV)Ordered By: Dr. Rodriges on 04-25-2022 MCV (RBC) [Entitic vol] 91.2 fL 80-94 [facility] Hematocrit Auto (Bld) [Volum e fraction]Ordered By: Dr. Rodriges on 04-25-2022 Hematocrit (Bld) [Volume fraction] 42.5 % 40-54 [facility] Laboratory - Chemistry and C hemistry - challengeOrdered By: Dr. Rodriges on 04-25-2022 ALP [Catalytic activity/Vol] 54 U/L 45-117 [facility] ALT [Catalytic activity/Vol] 25 U/L 16-61 [facility] CO2 [Moles/Vol] 26.0 mmol/L 21.0-32.0 [facility] Globulin (S) [Mass/Vol] 3.4 g/dL 2.2-4.2 [facility] Urea nitrogen/Creatinine [Mass ratio] 17.0 mg/mg 10-20 [facility] - Hematology and Cell countsOrdered By: Dr. Rodriges on 04-25-2022 Erythrocyte distribution width (RBC) [Entitic vol] 44.7 fL 35.1-43.9 [facility] Erythrocyte distribution width (RBC) [Ratio] 13.3 % 11.6-14.6 [facility] Immature granulocytes/100 WBC (Bld) 0.300 % 0.0-0.9 [facility] Comment on above: IG% - Immature Granu locytes (promyelocytes, myelocytes and metamyelocytes) > 1% indicates that a LEFT SHIFT is Present. MCH (RBC) [Entitic mass] 29.2 pg 27.0-32.0 [facility] Nucleated RBC/100 WBC (Bld) [Ratio] 0 % 0-5 [facility] MCHC Auto (RBC) [Mass/Vol]Or dered By: Dr. Rodriges on 04-25-2022 MCHC (RBC) [Mass/Vol] 32.0 g/dL 32-36 [facility] No Panel InformationOrdered By: Dr. Rodriges on 04-25-2022 Estimated GFR (MDRD) Amer 97 mL/min >60 [facility] Comment on above: GFR Calc Estimated GFR (MDRD) Non-Af Amer 80 mL/min >60 [facility] Comment on above: Non- GFR Calc Platelets bldOrdered By: Dr. Rodriges on 04-25-2022 Platelets (Bld) [#/Vol] 275 10*3/uL 150-450 [facility] Serum or plasma albumin floyd urement (mass/volume)Ordered By: Dr. Rodriges on 04-25-2022 Albumin [Mass/Vol] 3.9 g/dL 3.2-5.[address] [facility] Serum or plasma albumin/glob ulin mass ratioOrdered By: Dr. Rodriges on 04-25-2022 Albumin/Globulin [Mass ratio] 1.1 {ratio} 0.9-2.4 [facility] Serum or plasma calcium floyd urement (mass/volume)Ordered By: Dr. Rodriges on 04-25-2022 Calcium [Mass/Vol] 9.3 mg/dL 8.5-10.[address] [facility] Serum or plasma creatinine m easurement (mass/volume)Ordered By: Dr. Rodriges on 04-25-2022 Creatinine [Mass/Vol] 1.00 mg/dL 0.70-1.30 [facility] Comment on above: The validity of the calculated GFR & GFRAA in patients over 70 years has not been determined. Clinical correlation is essential. Serum or plasma urea nitroge n measurement (mass/volume)Ordered By: Dr. Rodriges on 04-25-2022 Urea nitrogen [Mass/Vol] 17 mg/dL 7-18 [facility] Thin prep Papanicolaou smear with manual screeningOrdered By: Dr. Rodriges on 04-25-2022 Thin prep Papanicolaou smear with manual screening 26 U/L 15-37 [facility] Thin prep Papanicolaou smear with manual screening 8 5-15 [facility] Whole blood hemoglobin A1c/t otal hemoglobin ratio (mass fraction)Ordered By: Dr. Rodriges on 04-25-2022 HbA1c (Bld) [Mass fraction] 5.6 % 3.8-5.6 [facility] Comment on above: Normal < 5.7 % Predi abetic 5.7 - 6.4 % Diabetic >or= 6.5 % Please note range changes. Absolute lymphocyte countOrd ered By: Dr. Rodriges on 12-25-2021 Lymphocytes Auto (Unsp spec) [#/Vol] 1.60 10*3/uL 0.83-4.51 [facility] Basophil percentageOrdered B y: Dr. Rodriges on 12-25-2021 Basophil percentage 0 SEEN /hpf 0-5 [facility] Basophils/100 WBC (Bld) 0.9 % 0-1 [facility] Bilirubin [Mass/Vol] 0.60 mg/dL 0.20-1.00 [facility] Comment on above: For patients on eltr ombopag therapy, use of Dimension [place] TBIL is not recommended. Chloride [Moles/Vol] 107 mmol/L 98-107 [facility] Cholesterol [Mass/Vol] 171 mg/dL <200 [facility] Comment on above: <200 mg/dL Desirable 200-240 mg/dL Borderline >240 mg/dL High Risk Eosinophils/100 WBC (Bld) 4.4 % 0-5 [facility] Glucose [Mass/Vol] 100 mg/dL 74-[address] [facility] Comment on above: Fasting Glucose resu lt from 100 to 125 mg/dL suggests IMPAIRED HOMEOSTASIS per A.D.A. criteria. Neutrophils (Bld) [#/Vol] 3.9 10*3/uL 2.0-7.7 [facility] Neutrophils/100 WBC (Bld) 62.0 % 47-70 [facility] Potassium [Moles/Vol] 3.9 mmol/L 3.5-5.1 [facility] Protein [Mass/Vol] 7.2 g/dL 6.4-8.[address] [facility] Sodium [Moles/Vol] 139 mmol/L 136-[address] [facility] Triglyceride [Mass/Vol] 92 mg/dL <199 [facility] Comment on above: The drugs N-Acetylcy steine and Metamizole may falsely depress this assay.Serum Triglycerides Reference Interval Normal <150 mg/dL Borderline high 150 - 199 mg/dL High 200 - 499 mg/dL Very High > or = 500 mg/dL WBC (Bld) [#/Vol] 6.3 10*3/uL 4.4-11.[address] [facility] Bilirubin Test strip Ql (U)O rdered By: Dr. Rodriges on 12-25-2021 Bilirubin Ql (U) Negative Negative [facility] Blood erythrocytes count (nu mber/volume)Ordered By: Dr. Rodriges on 12-25-2021 RBC (Bld) [#/Vol] 4.93 10*6/uL 4.6-6.2 [facility] Blood hemoglobin measurement (mass/volume)Ordered By: Dr. Rodriges on 12-25-2021 Hemoglobin (Bld) [Mass/Vol] 14.6 g/dL 13.0-16.5 [facility] Blood lymphocytes/100 leukoc ytesOrdered By: Dr. Rodriges on 12-25-2021 Lymphocytes/100 WBC (Bld) 25.3 % 19-41 [facility] Blood monocytes/100 leukocyt esOrdered By: Dr. Rodriges on 12-25-2021 Monocytes/100 WBC (Bld) 7.1 % 0-10 [facility] Blood platelet mean volumeOr dered By: Dr. Rodriges on 12-25-2021 Platelet mean volume (Bld) [Entitic vol] 9.6 fL 6.2-12.0 [facility] Determination of erythrocyte mean corpuscular volume (MCV)Ordered By: Dr. Rodriges on 12-25-2021 MCV (RBC) [Entitic vol] 92.3 fL 80-94 [facility] Hematocrit Auto (Bld) [Volum e fraction]Ordered By: Dr. Rodriges on 12-25-2021 Hematocrit (Bld) [Volume fraction] 45.5 % 40-54 [facility] Ketones Test strip Ql (U)Ord ered By: Dr. Rodriges on 12-25-2021 Ketones Ql (U) Negative Negative [facility] - Chemistry and C hemistry - challengeOrdered By: Dr. Rodriges on 12-25-2021 ALP [Catalytic activity/Vol] 53 U/L 45-117 [facility] ALT [Catalytic activity/Vol] 29 U/L 16-61 [facility] CO2 [Moles/Vol] 25.0 mmol/L 21.0-32.0 [facility] Globulin (S) [Mass/Vol] 3.3 g/dL 2.2-4.2 [facility] Magnesium [Mass/Vol] 2.3 mg/dL 1.6-2.6 [facility] Urea nitrogen/Creatinine [Mass ratio] 15.0 mg/mg 10-20 [facility] - Hematology and Cell countsOrdered By: Dr. Rodriges on 12-25-2021 Erythrocyte distribution width (RBC) [Entitic vol] 45.3 fL 35.1-43.9 [facility] Erythrocyte distribution width (RBC) [Ratio] 13.2 % 11.6-14.6 [facility] Immature granulocytes/100 WBC (Bld) 0.300 % 0.0-0.9 [facility] Comment on above: IG% - Immature Granu locytes (promyelocytes, myelocytes and metamyelocytes) > 1% indicates that a LEFT SHIFT is Present. MCH (RBC) [Entitic mass] 29.6 pg 27.0-32.0 [facility] Nucleated RBC/100 WBC (Bld) [Ratio] 0 % 0-5 [facility] MCHC Auto (RBC) [Mass/Vol]Or dered By: Dr. Rodriges on 12-25-2021 MCHC (RBC) [Mass/Vol] 32.1 g/dL 32-36 [facility] Mucus LM Ql (Urine sed)Order ed By: Dr. Rodriges on 12-25-2021 Mucus Ql (Urine sed) 0 SEEN /hpf [facility] Nitrite Test strip Ql (U)Ord ered By: Dr. Rodriges on 12-25-2021 Nitrite Ql (U) Negative Negative [facility] No Panel InformationOrdered By: Dr. Rodriges on 12-25-2021 Estimated GFR (MDRD) Amer 115 mL/min >60 [facility] Comment on above: GFR Calc Estimated GFR (MDRD) Non-Af Amer 95 mL/min >60 [facility] Comment on above: Non- GFR Calc Thyroid Stimulating Hormone (TSH) 2.97 uIU/mL 0.358-3.74 [facility] Platelets bldOrdered By: Dr. Rodriges on 12-25-2021 Platelets (Bld) [#/Vol] 263 10*3/uL 150-450 [facility] Protein Test strip Ql (U)Ord ered By: Dr. Rodriges on 12-25-2021 Protein Ql (U) Negative Negative [facility] Serum or plasma albumin floyd urement (mass/volume)Ordered By: Dr. Rodriges on 12-25-2021 Albumin [Mass/Vol] 3.9 g/dL 3.2-5.[address] [facility] Serum or plasma albumin/glob ulin mass ratioOrdered By: Dr. Rodriges on 12-25-2021 Albumin/Globulin [Mass ratio] 1.2 {ratio} 0.9-2.4 [facility] Serum or plasma calcium floyd urement (mass/volume)Ordered By: Dr. Rodriges on 12-25-2021 Calcium [Mass/Vol] 8.9 mg/dL 8.5-10.[address] [facility] Serum or plasma cholesterol in HDL measurement (mass/volume)Ordered By: Dr. Rodriges on 12-25-2021 Cholesterol in HDL [Mass/Vol] 52 mg/dL >40 [facility] Comment on above: The drugs N-Acetylcy steine and Metamizole may falsely depress this assay. Reference Range HDL <40 mg/dL Low HDL Cholesterol HDL >or= 60 mg/dL High HDL Cholesterol Serum or plasma cholesterol in VLDL measurement (mass/volume)Ordered By: Dr. Rodriges on 12-25-2021 Cholesterol in VLDL [Mass/Vol] 18 mg/dL 5-40 [facility] Serum or plasma creatinine m easurement (mass/volume)Ordered By: Dr. Rodriges on 12-25-2021 Creatinine [Mass/Vol] 0.87 mg/dL 0.70-1.30 [facility] Comment on above: The validity of the calculated GFR & GFRAA in patients over 70 years has not been determined. Clinical correlation is essential. Serum or plasma low density lipoprotein (LDL) cholesterol measurement (mass/volume)Ordered By: Dr. Rodriges on 12-25-2021 Cholesterol in LDL [Mass/Vol] 101 mg/dL 0-130 [facility] Serum or plasma urea nitroge n measurement (mass/volume)Ordered By: Dr. Rodriges on 12-25-2021 Urea nitrogen [Mass/Vol] 13 mg/dL 7-18 [facility] Squamous epithelial cells de tection in urine sediment by light microscopyOrdered By: Dr. Rodriges on 12-25-2021 Epithelial cells.squamous LM Ql (Urine sed) 0 SEEN /hpf 0-5 [facility] Thin prep Papanicolaou smear with manual screeningOrdered By: Dr. Rodriges on 12-25-2021 Thin prep Papanicolaou smear with manual screening 21 U/L 15-37 [facility] Thin prep Papanicolaou smear with manual screening 7 5-15 [facility] Urine blood detectionOrdered By: Dr. Rodriges on 12-25-2021 RBC Ql (U) Negative Negative [facility] RBC Ql (U) 0 SEEN /hpf 0-5 [facility] Urine clarityOrdered By: Dr. Rodriges on 12-25-2021 Clarity (U) Sl. Cloudy Clear [facility] Urine color determinationOrd ered By: Dr. Rodriges on 12-25-2021 Color (U) Yellow Yellow [facility] Urine glucose detectionOrder ed By: Dr. Rodriges on 12-25-2021 Glucose Ql (U) Normal mg/dl Normal [facility] Urine leukocyte esterase det ection by dipstickOrdered By: Dr. Rodriges on 12-25-2021 Leukocyte esterase Test strip Ql (U) Negative Negative [facility] Urine pHOrdered By: Dr. Juventino mar on 12-25-2021 pH (U) 8.0 [pH] 5.0 - 8.0 [facility] Urine sediment bacteria coun t by microscopy (number/high power field)Ordered By: Dr. Rodriges on 12-25-2021 Bacteria LM.HPF (Urine sed) [#/Area] 0 /[HPF] None Seen [facility] Urine specific gravity measu rementOrdered By: Dr. Rodriges on 12-25-2021 Specific gravity (U) [Rel density] 1.015 1.002-1.03 0 [facility] Urobilinogen Auto test strip Ql (U)Ordered By: Dr. Rodriges on 12-25-2021 Urobilinogen Ql (U) Normal mg/dl Normal [facility] Whole blood hemoglobin A1c/t otal hemoglobin ratio (mass fraction)Ordered By: Dr. Rodriges on 12-25-2021 HbA1c (Bld) [Mass fraction] 5.7 % 3.8-5.6 [facility] Comment on above: Normal < 5.7 % Predi abetic 5.7 - 6.4 % Diabetic >or= 6.5 % Please note range changes. Vital Signs Date Time Vital Sign Value Performing Clinician Faci lity 06-18-2024 19:40-0400 Body temperature 98.9 [degF] Dr. Omar Rodriges MD Work Phone: [facility] 06-18-2024 19:40-0400 Diastolic blood pressure 84 mm[Hg] Dr. Omar Rodriges MD Work Phone: [facility] 06-18-2024 19:40-0400 Heart rate 71 /min Dr. Omar Rodriges MD Work Phone: [facility] 06-18-2024 19:40-0400 Respiratory rate 13 /min Dr. Omar Rodriges MD Work Phone: [facility] 06-18-2024 19:40-0400 SaO2% (BldA) [Mass fraction] 99 % Dr. Omar Rodriges MD Work Phone: [facility] 06-18-2024 19:40-0400 Systolic blood pressure 144 mm[Hg] Dr. Omar Rodriges MD Work Phone: [facility] 06-18-2024 16:30-0400 Body height 175.[address] Omar Rodriges MD Work Phone: [facility] 06-18-2024 16:30-0400 Body mass index (BMI) [Ratio] 29.7 kg/m2 Dr. Omar Rodriges MD Work Phone: [facility] 06-18-2024 16:30-0400 Body weight 91.[address] Omar Rodriges MD Work Phone: [facility] 05-18-2024 10:47-0400 Body mass index (BMI) [Ratio] 28.7 kg/m2 Dr. Omar Rodriges MD Work Phone: 6(967)480-879437 [place] [address] 05-18-2024 10:47-0400 Body weight 88.[address] Omar Rodriges MD Work Phone: [facility] 05-18-2024 10:47-0400 Diastolic blood pressure 80 mm[Hg] Dr. Omar Rodriges MD Work Phone: [facility] 05-18-2024 10:47-0400 Heart rate 78 /min Dr. Omar Rodriges MD Work Phone: [facility] 05-18-2024 10:47-0400 Respiratory rate 18 /min Dr. Omar Rodriges MD Work Phone: 6(139)577-716737 [place] [address] 05-18-2024 10:47-0400 SaO2% (BldA) [Mass fraction] 96 % Dr. Omar Rodriges MD Work Phone: [facility] 05-18-2024 10:47-0400 Systolic blood pressure 130 mm[Hg] Dr. Omar Rodriges MD Work Phone: [facility] 08-26-2022 08:00-0400 Body temperature 98.3 [degF] Dr. Omar Rodriges Work Phone: [facility] 08-26-2022 08:00-0400 Diastolic blood pressure 88 mm[Hg] Dr. Omar Rodriges Work Phone: [facility] 08-26-2022 08:00-0400 Heart rate 59 /min Dr. Omar Rodriges Work Phone: [facility] 08-26-2022 08:00-0400 Respiratory rate 18 /min Dr. Omar Rodriges Work Phone: [facility] 08-26-2022 08:00-0400 SaO2% (BldA) [Mass fraction] 100 % Dr. Omar Rodriges Work Phone: [facility] 08-26-2022 08:00-0400 Systolic blood pressure 122 mm[Hg] Dr. Omar Rodriges Work Phone: [facility] 08-26-2022 06:39-0400 Body height 175.[address] Omar Rodriges Work Phone: [facility] 08-26-2022 06:39-0400 Body mass index (BMI) [Ratio] 26.9 kg/m2 Dr. Omar Rodriges Work Phone: [facility] 08-26-2022 06:39-0400 Body weight 82.[address] Omar Rodriges Work Phone: [facility] 07-31-2022 11:54-0400 Body height 175.[address] Omar Rodriges Work Phone: 7(898)[phone] [address] 07-31-2022 11:54-0400 Body mass index (BMI) [Ratio] 27.3 kg/m2 Dr. Omar Rodriges Work Phone: 4(815)[phone] [place] [address] 07-31-2022 11:54-0400 Body weight 83.[address] Omar Rodriges Work Phone: [facility] 04-11-2022 09:15-0500 Body temperature 97.9 [degF] Dr. Omar Rodriges Work Phone: [facility] 04-11-2022 09:15-0500 Diastolic blood pressure 82 mm[Hg] Dr. Omar Rodriges Work Phone: [facility] 04-11-2022 09:15-0500 Heart rate 80 /min Dr. Omar Rodriges Work Phone: [facility] 04-11-2022 09:15-0500 Respiratory rate 16 /min Dr. Omar Rodriges Work Phone: [facility] 04-11-2022 09:15-0500 SaO2% (BldA) [Mass fraction] 99 % Dr. mOar Rodriges Work Phone: [facility] 04-11-2022 09:15-0500 Systolic blood pressure 127 mm[Hg] Dr. Omar Rodriges Work Phone: [facility] 02-11-2022 10:55-0500 Heart rate 70 /min Dr. Omar Rodriges Work Phone: [facility] 02-11-2022 10:55-0500 Respiratory rate 18 /min Dr. Omar Rodriges Work Phone: [facility] 02-11-2022 10:55-0500 SaO2% (BldA) [Mass fraction] 96 % Dr. Omar Rodriges Work Phone: [facility] 02-11-2022 10:22-0500 Body temperature 97 [degF] Dr. Omar Rodriges Work Phone: [facility] 02-11-2022 10:22-0500 Diastolic blood pressure 80 mm[Hg] Dr. Omar Rodriges Work Phone: [facility] 02-11-2022 10:22-0500 Systolic blood pressure 113 mm[Hg] Dr. Omar Rodriges Work Phone: [facility] 02-11-2022 10:15-0500 Inhaled oxygen flow rate 2 L/min Dr. Omar Rodriges Work Phone: [facility] 02-11-2022 08:34-0500 Body height 175.[address] Omar Rodriges Work Phone: [facility] 02-11-2022 08:34-0500 Body mass index (BMI) [Ratio] 28.1 kg/m2 Dr. Omar Rodriges Work Phone: [facility] 02-11-2022 08:34-0500 Body weight 86.[address] Omar Rodriges Work Phone: [facility] 01-23-2022 09:51-0500 Body mass index (BMI) [Ratio] 28.4 kg/m2 Dr. Omar Rodriges Work Phone: [facility] 01-23-2022 09:51-0500 Body temperature 97.2 [degF] Dr. Omar Rodriges Work Phone: [facility] 01-23-2022 09:51-0500 Body weight 87.[address] Omar Rodriges Work Phone: [facility] 01-23-2022 09:51-0500 Diastolic blood pressure 84 mm[Hg] Dr. Omar Rodriges Work Phone: [facility] 01-23-2022 09:51-0500 Heart rate 75 /min Dr. Omar Rodriges Work Phone: [facility] 01-23-2022 09:51-0500 Respiratory rate 17 /min Dr. Omar Rodriges Work Phone: [facility] 01-23-2022 09:51-0500 SaO2% (BldA) [Mass fraction] 98 % Dr. Omar Rodriges Work Phone: [facility] 01-23-2022 09:51-0500 Systolic blood pressure 143 mm[Hg] Dr. Omar Rodriges Work Phone: [facility] 11-19-2021 01:18-0400 Body height 175.26 cm [facility] Work Phone: 11-19-2021 01:18-0400 Body mass index (BMI) [Ratio] 28 kg/m2 [facility] Work Phone: 11-19-2021 01:18-0400 Body temperature 97.2 [degF] [facility] Work Phone: 11-19-2021 01:18-0400 Body weight 86.18 kg [facility] Work Phone: 11-19-2021 01:18-0400 Diastolic blood pressure 119 mm[Hg] [facility] Work Phone: 11-19-2021 01:18-0400 Heart rate 98 /min [facility] Work Phone: 11-19-2021 01:18-0400 Respiratory rate 16 /min [facility] Work Phone: 11-19-2021 01:18-0400 SaO2% (BldA) [Mass fraction] 98 % [facility] Work Phone: 11-19-2021 01: Systolic blood pressure 179 mm[Hg] [facility] Work Phone: Encounters Encounter Date Encounter Type Care Provider Facility Start: 07-06-2024 ambulatory Omar Rodriges Facilit y:[facility] Start: 07-06-2024 Non-patient / Non-visit Dr. Erlin Lynn MD -[facility] Start: 07-06-2024 End: 07-06-[address] Omar Rodriges MD Work Phone: [facility] Work Phone: Start: 07-06-2024 End: 07-06-[address] Omar Rodriges MD -[facility] Work Phone: Start: 07-06-2024 End: 07-06-2024 ambulatory Omar Rodriges Facility:[facility] Start: 06-18-2024 End: 06-18-2024 Emergency department patient visit Dr. Gordo Crespo DO -Emergency Department Work Phone: Start: 05-18-2024 End: 05-18-2024 Patient encounter procedure Alicia SHELBY -[facility] Work Phone: Start: 05-18-2024 End: 05-18-2024 ambulatory Alicia Ovalle [facility] Start: 02-23-2024 End: 02-23-2024 ambulatory Omar Rodriges Facility:[facility] Start: 10-05-2023 End: 10-05-2023 ambulatory Nata Mejia Facility:[facility] Start: 08-26-2023 End: 08-26-2023 ambulatory Omar Rodriges Facility:[facility] Start: 08-26-2022 Non-patient / Non-visit Dr. Omar Rodriges Work Phone: [facility] Start: 08-26-2022 End: 08-26-2022 Admission to same day surgery center Dr. Omar Rodriges Work Phone: [facility] Work Phone: Start: 08-26-2022 End: 08-26-[address] Omar Rodriges Work Phone: [facility] Work Phone: Start: 07-31-2022 Non-patient / Non-visit Dr. Omar Rodriges Work Phone: [facility] Start: 07-29-2022 End: 07-29-[address] Omar Rodriges Work Phone: [facility] Work Phone: Start: 07-29-2022 End: 07-29-[address] Omar Rodriges Work Phone: [facility] Start: 06-19-2022 End: 06-19-[address] Omar Rodriges Work Phone: [facility] Start: 04-25-2022 End: 04-25-[address] Omar Rodriges Work Phone: [facility] Work Phone: Start: 04-25-2022 End: 04-25-[address] Omar Rodriges Work Phone: [facility] Start: 04-11-2022 End: 04-11-2022 Admission to same day surgery center Dr. Omar Rodriges Work Phone: [facility] Start: 04-11-2022 End: 04-11-[address] Omar Rodriges Work Phone: [facility] Work Phone: Start: 02-14-2022 End: 02-14-[address] Omar Rodriges Work Phone: [facility] Start: 02-11-2022 Non-patient / Non-visit Dr. Omar Rodriges Work Phone: [facility] Start: 02-11-2022 End: 02-11-2022 Admission to same day surgery center Dr. Omar Rodriges Work Phone: [facility] Start: 02-11-2022 End: 02-11-[address] Omar Rodriges Work Phone: [facility] Work Phone: Start: 01-23-2022 End: 01-23-[address] Omar Rodriges Work Phone: [facility] Start: 12-25-2021 End: 12-25-2021 ambulatory [facility] Work Phone: Start: 12-25-2021 End: 12-25-2021 Patient encounter procedure [facility] Start: 11-19-2021 End: 11-19-2021 Emergency department patient visit [facility] Procedures Date Procedure Procedure [...] Date Care Activity Detail Author Start: 06-18-2024 [facility] Start: 06-18-2024 [facility] Start: 08-26-2022 Patient discharge [facility] Start: 04-11-2022 Esophageal motility study w/interp&rpt ESOPHAGUS MOTILITY STUDY [facility] Start: 04-11-2022 Patient discharge [facility] Start: 02-11-2022 Egd balloon dilation esophagus <30 mm diam ESOPH EGD DILATION <30 MM [facility] Start: 02-11-2022 Egd transoral biopsy single/multiple EGD BIOPSY SINGLE/MULTIPLE [facility] Start: 02-11-2022 Patient discharge [facility] Colonoscopy [facility] Patient Education [facility] Work Phone: Patient referral [facility] Work Phone: [facility] Immunizations Immunization Date Immunization Notes Care Provider Fa cility 11-19-2021 tetanus toxoid, redu harrison diphtheria toxoid, and acellular pertussis vaccine, adsorbed [facility] Payers Date Payer Category Payer Self-pay 2023 Unknown [id number] Unknown SELF INS [facility]EL [facility]USH [id number] Unknown [id number] Unknown [id number] Unknown [id number] Unknown [id number] Unknown [id number] Social History Date Type Detail Facility Start: 11-19-2021 End: 08-25-2022 Tobacco smoking status NHIS Unknown if ever smoked [facility] Start: 1960 Sex Assigned At Male [facility] Start: 06-18-2024 Tobacco smoking stat us NHIS Never smoked tobacco (finding) [facility] Medical Equipment Procedure Code Equipment [...] Assessment Result Facility 06-18-2024 Cognitive function Voice/Name [facility] Work Phone: 08-26-2022 Cognitive function Level Of Consciousness Sedated [facility] Work Phone: 08-26-2022 Cognitive function Voice/Name [facility] Work Phone: 04-11-2022 Cognitive function Awake;Alert;Appropriat e [facility] Work Phone: 02-11-2022 Cognitive function Level Of Consciousness Sedated [facility] Work Phone: 02-11-2022 Cognitive function Voice/Name [facility] Work Phone: Evaluation note 05-18-2024 Note Date & Type Note Facility 05-18-2024 Evaluation note Diagnosis Onset Date Resolution Gastroesophageal reflux disease with stricture acute May 10:20am [facility] Work Phone: History and physical note 08-26-2022 Note Date & Type Note Facility 08-26-2022 History and physical note Note Date/Time August 26, 2022 6:19am [facility] Medical Records Department [address] [place] [address] History & Physical Exam 08/26/22616 MR#: [id number] Acct: [id number] Name: DANTE HIRSCH Rep #:[id number] : 1960 61 From: Zion Juarez MD PCP: Dr. Omar Rodriges MD Status:[facility] Location: [address] - General General Date of Service: [...] his reflux disease at this time. [facility] Medical History (Updated 08/25/22 @ 10:53 by [...] Rodriges MD; Dr. Zion Juarez MD~ Signed [facility] Work Phone: Procedure note 08-26-2022 Note Date & Type Note Facility 08-26-[address] [facility] Procedure note 08-26-2022 Note Date & Type Note Facility 08-26-[address]22 Procedure [address] [facility] Evaluation note Note Date & Type Note Facility Evaluation note No assessment information availa ble [facility] Work Phone: Evaluation note Note Date & Type Note Facility Evaluation note Diagnosis Onset Date Gastroesophageal reflux disease noneactive [facility] Work Phone: Evaluation note Note Date & Type Note Facility Evaluation note Diagnosis Onset Date Gastroesophageal reflux disease noneactive S/P dilatation of esophageal stricture acute [facility] Work Phone: Evaluation note Note Date & Type Note Facility Evaluation note Diagnosis Onset Date Gastroesophageal reflux disease noneactive S/P dilatation of esophageal stricture acute Gastroesophageal reflux dise ase with stricture acute S/P dilatation of esophageal stricture acute [facility] Work Phone: Evaluation note Note Date & Type Note Facility Evaluation note Diagnosis Onset Date Gastroesophageal reflux dise ase with stricture acute S/P dilatation of esophageal stricture acute Gastroesophageal reflux dise ase with stricture acute S/P dilatation of esophageal stricture acute [facility] Work Phone: Evaluation note Note Date & Type Note Facility Evaluation note Diagnosis Onset Date Gastroesophageal reflux dise ase with stricture acute S/P dilatation of esophageal stricture acute Encounter for screening for malignant neoplasm of colon [facility] Work Phone: Chief Complaint and Reason [...] Will No November 19 1:42am Power of Funeral Service Manager No November 19 1:42am Advance Directive Response Recorded Date/ Time Living Will No November 19 12:42am Power of Funeral Service Manager No November 19 12:42am Advance Directive Response Recorded Date/ Time Living Will Yes February 06 12:43pm Power of Funeral Service Manager No February 06, 2022 12:43pm Advance Directive Response Recorded Date/ Time Living Will Yes February 06 1:43pm Power of Funeral Service Manager No February 06, 2022 1:43pm Advance Directive Response Recorded Date/ Time Name of Medical Power of Funeral Service Manager RONNY GUTIERREZ August 25, 2022 10:44am Living Will Yes August 25, 2022 10:44am Power of Funeral Service Manager Yes August 25 10:44am Advance Directive Response Recorded Date/ Time Do you have a Healthcare Power of Funeral Service Manager? No June 18, 2024 4:32pm Family History [...] Dates Dr. Omar Rodriges MD [facility], Attending Provider, Referring Provider Active Team [...] section and content) DATE CREATED AUTHOR 07/26/2024 [facility] FOR RECORDS PERTAINING TO PATIENTS WHO ARE [...] BE BASED ON THE PRIMARY CLINICAL RECORDS. [employer] provides no warranty or guarantee of the accuracy or completeness of information in this document.
== END | disposition home or self-care (01) ==
LOC: MFPLAB 10:22
PROVIDERS: PCP Family Medicine; Referring Provider Family Medicine; Visit Provider Family Medicine
DX: R73.02 Impaired glucose tolerance (oral) (principal); I10 Essential (primary) hypertension; Z12.5 Encounter for screening for malignant neoplasm of prostate
CPT/HCPCS: 36415; 80053; 80061; 83036; 83735; 84153; 85025; G0103